=== PATIENT | male | born 1940 | race Caucasian/White ===

== ENCOUNTER → 2016-03-30 | Outpatient (CLI) | payer OTHER ==
[~2016-03-30] MED LIST: AMOX1TAB43 PO; ASPCH81X PO; ASPI81TA28 PO; DRN400 PO; FLM4 PO; FRS/40 PO; FURO40TA3 PO; GLC500 PO; HYDR-5688 PO; INSU1INJ23 SC; IPRA1AER2 INH; ISOS120T5 PO; LACTCHW3 PO; LEVO100T7 PO; LSX20 PO; MULT1CAP16 PO; NTRGSL/4 UT; POTA10TA32 PO; QVRINH80 INH; RANO500T PO; SIMV-151 PO; SULF-183 PO; TPRSR/100 PO; VNTHFA/IN INH; XNX25 PO
--- NOTE | 2016-03-30 11:29 | DIAGNOSTIC IMAGING REPORT ---
CHEST 2 VIEWS ROUTINE HISTORY: R06.09 Dyspnea on exertion Dyspnea on exertion but euvolemic on e COMPARISON: Chest 11/01/2015. FINDINGS: The heart remains mildly enlarged. There are poststernotomy changes. Mild diffuse interstitial thickening persists. No pleural effusions. No pneumothorax. No new focal lung consolidations. IMPRESSION: No change in the mild cardiomegaly and mild diffuse interstitial thickening. This may be chronic or due to developing congestive change. Electronically signed by: Gagan Guzmán M.D. 03/30/2016 11:27 AM Dictated Date/Time: 03/30/2016 11:25 AM
== END | disposition home or self-care (01) ==
LOC: C.RAD1850 10:40
PROVIDERS: ATTEND Internal Medicine Cardiovascular Disease
DX: R06.09 Other forms of dyspnea (principal)

== ENCOUNTER 2016-06-21 10:21 | Emergency (ER) | payer OTHER ==
[~2016-06-21] VITALS: Ht 172.7 cm; Wt 98.0 kg
[~2016-06-21 10:21] MED LIST changes: -AMOX1TAB43 PO; -ASPCH81X PO; -FRS/40 PO; -FURO40TA3 PO; -IPRA1AER2 INH; -LACTCHW3 PO; -QVRINH80 INH; -SULF-183 PO; -VNTHFA/IN INH
[2016-06-21 10:24] VITALS: O2SAT 94
[2016-06-21 10:27] VITALS: TEMP 36.8; Ht 172.7 cm; Wt 98.0 kg
[2016-06-21] MEDS ORDERED: IPRA1AER2 INH (10:43)
[2016-06-21 11:34] LABS: BASO % 0.3 %; BASO ABS # 0.02 K/uL (0-0.2); COMPLETE YES; EOS % 3.6 %; HEMATOCRIT 40.7 % (42-52); IG% 0.3 %; LYMPH % 36.4 %; LYMPH ABS # 2.72 K/uL (1.2-3.4); MEAN CELL VOLUME 89.1 fL (80-100); MEAN CORPUSCULAR HEMOGLOBIN 30.4 pg (25-34); MEAN CORPUSCULAR HGB CONC 34.2 g/dl (32-36); MEAN PLATELET VOLUME 9.6 fL (7.4-10.4); MONO % 8.3 %; NEUT % 51.1 %; PLATELET COUNT 161 K/uL (130-400); RED BLOOD COUNT 4.57 M/uL (4.7-6.1); WHITE BLOOD COUNT 7.48 K/uL (4.8-10.8)
--- NOTE | 2016-06-21 11:37 | DIAGNOSTIC IMAGING REPORT ---
CHEST ONE VIEW PORTABLE CLINICAL HISTORY: Chest pain, altered mental status. Weakness. COMPARISON STUDY: 03/30/2016 FINDINGS: There are postsurgical changes of a midline sternotomy. There is diffuse interstitial thickening similar to the prior study. The heart is mildly enlarged. There is no lobar consolidation. There are no pleural effusions.[ IMPRESSION: Cardiomegaly and stable interstitial thickening/edema. No evidence of lobar consolidation Electronically signed by: Sotero Salvador M.D. 06/21/2016 11:35 AM Dictated Date/Time: 06/21/2016 11:34 AM
[2016-06-21 11:52] LABS: BLOOD UREA NITROGEN 20 mg/dl (7-18); BUN/CREATININE RATIO 16.8 (10-20); CARBON DIOXIDE 30 mmol/L (21-32); CHLORIDE 107 mmol/L (98-107); GLUCOSE 138 mg/dl (70-99); POTASSIUM 4.2 mmol/L (3.5-5.1); SODIUM 142 mmol/L (136-145)
[2016-06-21 11:53] LABS: ALT/SGPT 31 U/L (12-78); AST/SGOT 15 U/L (15-37); CALCIUM 9.3 mg/dl (8.5-10.1); MAGNESIUM 1.8 mg/dl (1.8-2.4)
--- NOTE | 2016-06-21 11:53 | DIAGNOSTIC IMAGING REPORT ---
CT HEAD WITHOUT CONTRAST (CT) CLINICAL HISTORY: Altered mental status. Weakness. Right facial numbness. COMPARISON STUDY: No previous studies for comparison. TECHNIQUE: Axial CT of the brain is performed from the vertex to the skull base. IV contrast was not administered for this examination. CT DOSE: 1235.91 mGycm FINDINGS: No intra or extra-axial mass lesions are visualized. There is no CT evidence of acute cortical infarction. There is no evidence of midline shift. There is no acute hemorrhage. No calvarial fractures are visualized. There are patchy white matter hypodensities likely on a small vessel basis. There is no evidence of pathologic ventricular dilatation. There is no evidence of acute sinusitis IMPRESSION: No acute intracranial findings Electronically signed by: Sotero Salvador M.D. 06/21/2016 11:52 AM Dictated Date/Time: 06/21/2016 11:51 AM
[2016-06-21 12:01] LABS: ALKALINE PHOSPHATASE 42 U/L (45-117); CKMB/CK RATIO 1.2 (0-3.0)
[2016-06-21 12:05] VITALS: BP 112/41; PULSE 88; O2SAT 98
[2016-06-21 12:15] LABS: INR 1.1 (0.9-1.1); PROTHROMBIN TIME (PATIENT) 11.4 SECONDS (9.0-12.0)
--- NOTE | 2016-06-21 12:27 | EMERGENCY ROOM VISIT NOTE ---
History Report prepared by Eusebio: Diana Beal Under the Supervision of: Dr. Stanford Block D.O. First contact with patient: 10:46 Chief Complaint: CHEST PAIN Stated Complaint: CHEST PAIN Nursing Triage Summary: pt here with an episode of chest pain that lasted a few minutes this am while getting dressed. upon ems arrival pain was resolved. pt had some facial numbness last pm, took one nitro with relief. when pain started it was substernal, no radiation of pain, no sob. pt has had a prod cough History of Present Illness The patient is a 75 year old male who presents to the Emergency Room with complaints of an episode of chest pain last night. He had trouble sleeping and some SOB and swelling in the legs. He thought the symptoms might be due to CHF. He took a nitro which relieved the chest pain and SOB. He also reports numbness on the left side of his face. He went to the bathroom and felt dizzy and uncoordinated when he was walking. He reports weakness in his legs. He currently feels some chest pressure. He had a cardiac catheterization last year and a CABG. He has a history of CHF. Source of History: patient Onset: last night Position: chest Quality: pressure, other (pain) Timing: other (episodic) Modifying Factors (Relieving): other (nitro) Associated Symptoms: + SOB, + numbness (left side of face), + weakness (in legs) Note: Pt reports feeling dizzy and uncoordinated when walking. Review of Systems See HPI for pertinent positives & negatives. A total of 10 systems reviewed and were otherwise negative. Past Medical & Surgical Medical Problems: (1) Acute blood loss anemia (2) Atrial flutter (3) CAD (coronary artery disease) (4) CAD (coronary artery disease) of bypass graft (5) CAD (coronary artery disease), [place] coronary artery (6) Chest pain (7) CHF exacerbation (8) Diabetes (9) Encounter for Hemoccult screening (10) Encounter for Hemoccult screening (11) Heart disease (12) Hypertension (13) Unstable angina Family History Diabetes mellitus FATHER FH: cirrhosis MOTHER Hypertension FATHER Stroke FATHER Social History Smoking Status: Former Smoker Drug Use: none Marital Status: Housing Status: lives alone Occupation Status: retired Current/Historical Medications Scheduled Aspirin (Aspirin Ec), 81 MG PO QAM Dronedarone (Multaq), 400 MG PO BID Insulin Isophane (Human) (Humulin N Kwikpen), 30 UNITS SC QAM Insulin Isophane (Human) (Humulin N Kwikpen), 55 UNITS SC QPM Ipratropium-Albuterol (Combivent Respimat), 1 PUFFS INH QID Isosorbide Mononitrate Ext Rel (Imdur Ext Rel), 120 MG PO BID Levothyroxine Sodium (Levothyroxine Sodium), 100 MCG PO DAILY Metformin HCl (Metformin HCl), 1,000 MG PO BID Metoprolol Succinate (Metoprolol Succinate ER), 100 MG PO BID Multiple Vitamins W/ Minerals (Multi Complete), 1 TAB PO QPM Potassium Chloride Microencaps (Potassium Chloride Er), 10 MEQ PO BID Ranolazine (Ranexa), 500 MG PO Q12 Simvastatin (Simvastatin), 20 MG PO HS Tamsulosin HCl (Tamsulosin HCl), 0.4 MG PO HS Scheduled PRN Alprazolam (Alprazolam), 0.25 MG PO TID PRN for Anxiety Furosemide (Furosemide), 20 MG PO DAILY PRN for SOB,Weight Gain,Leg Swelling Hydrocodone/Acetaminophen 5MG/325MG (Ora 5MG/325MG), 1 TABLET PO Q12 PRN for Pain Nitroglycerin (Nitrostat), 0.4 MG UT UD PRN for Chest Pain Allergies Coded Allergies: No Known Allergies (Verified , 07/04/15) Physical Exam Vital Signs Date Time Temp Pulse Resp B/P Pulse Ox O2 Delivery O2 Flow Rate FiO2 06/21/16 12:05 88 16 112/41 98 Room Air 06/21/16 10:29 69 06/21/16 10:27 36.8 72 16 161/77 97 Room Air 06/21/16 10:24 94 Room Air Physical Exam CONSTITUTIONAL/VITAL SIGNS: Reviewed / noted above. GENERAL: Non-toxic in appearance. INTEGUMENTARY: Warm, dry, and [place]. HEAD: Normocephalic. EYES: without scleral icterus or trauma. ENT/OROPHARYNX: clear and moist. LYMPHADENOPATHY/NECK: Is supple without lymphadenopathy or meningismus. RESPIRATORY: Lungs clear and equal. CARDIOVASCULAR: Regular rate and rhythm. GI/ABDOMEN: Soft and nontender. No organomegaly or pulsatile mass. No rebound or guarding. Normal bowel sounds. EXTREMITIES: Warm and well perfused. BACK: No CVA tenderness. NEUROLOGICAL: Intact without focal deficits. PSYCHIATRIC: normal affect. MUSCULOSKELETAL: Normally developed with good muscle tone. Medical Decision & Procedures ER Provider Diagnostic Interpretation: X ray results and stated below per my interpretation and radiology interpretation. Radiology results as stated below per my review and radiologist interpretation: CHEST ONE VIEW PORTABLE CLINICAL HISTORY: Chest pain, altered mental status. Weakness. COMPARISON STUDY: 03/30/2016 FINDINGS: There are postsurgical changes of a midline sternotomy. There is diffuse interstitial thickening similar to the prior study. The heart is mildly enlarged. There is no lobar consolidation. There are no pleural effusions.[ IMPRESSION: Cardiomegaly and stable interstitial thickening/edema. No evidence of lobar consolidation Electronically signed by: Sotero Salvador M.D. 06/21/2016 11:35 AM Dictated Date/Time: 06/21/2016 11:[address] HEAD WITHOUT CONTRAST (CT) CLINICAL HISTORY: Altered mental status. Weakness. Right facial numbness. COMPARISON STUDY: No previous studies for comparison. TECHNIQUE: Axial CT of the brain is performed from the vertex to the skull base. IV contrast was not administered for this examination. CT DOSE: 1235.91 mGycm FINDINGS: No intra or extra-axial mass lesions are visualized. There is no CT evidence of acute cortical infarction. There is no evidence of midline shift. There is no acute hemorrhage. No calvarial fractures are visualized. There are patchy white matter hypodensities likely on a small vessel basis. There is no evidence of pathologic ventricular dilatation. There is no evidence of acute sinusitis IMPRESSION: No acute intracranial findings Electronically signed by: Sotero Salvador M.D. 06/21/2016 11:52 AM Dictated Date/Time: 06/21/2016 11:51 AM Laboratory Results 06/21/16 11:27 Red Blood Count 4.57, Mean Corpuscular Volume 89.1, Mean Corpuscular Hemoglobin 30.4, Mean Corpuscular Hemoglobin Concent 34.2, Mean Platelet Volume 9.6, Neutrophils (%) (Auto) 51.1, Lymphocytes (%) (Auto) 36.4, Monocytes (%) (Auto) 8.3, Eosinophils (%) (Auto) 3.6, Basophils (%) (Auto) 0.3, Neutrophils # (Auto) 3.83, Lymphocytes # (Auto) 2.72, Monocytes # (Auto) 0.62, Eosinophils # (Auto) 0.27, Basophils # (Auto) 0.02 06/21/16 11:27 Test 06/21/16 11:27 White Blood Count 7.48 K/uL (4.8-10.8) Red Blood Count 4.57 M/uL (4.7-6.1) Hemoglobin 13.9 g/dL (14.0-18.0) Hematocrit 40.7 % (42-52) Mean Corpuscular Volume 89.1 fL (80-100) Mean Corpuscular Hemoglobin 30.4 pg (25-34) Mean Corpuscular Hemoglobin Concent 34.2 g/dl (32-36) Platelet Count 161 K/uL (130-400) Mean Platelet Volume 9.6 fL (7.4-10.4) Neutrophils (%) (Auto) 51.1 % Lymphocytes (%) (Auto) 36.4 % Monocytes (%) (Auto) 8.3 % Eosinophils (%) (Auto) 3.6 % Basophils (%) (Auto) 0.3 % Neutrophils # (Auto) 3.83 K/uL (1.4-6.5) Lymphocytes # (Auto) 2.72 K/uL (1.2-3.4) Monocytes # (Auto) 0.62 K/uL (0.11-0.59) Eosinophils # (Auto) 0.27 K/uL (0-0.5) Basophils # (Auto) 0.02 K/uL (0-0.2) RDW Standard Deviation 47.2 fL (36.4-46.3) RDW Coefficient of Variation 14.6 % (11.5-14.5) Immature Granulocyte % (Auto) 0.3 % Immature Granulocyte # (Auto) 0.02 K/uL (0.00-0.02) Prothrombin Time 11.4 SECONDS (9.0-12.0) Prothromb Time International Ratio 1.1 (0.9-1.1) Activated Partial Thromboplast Time 26.1 SECONDS (21.0-31.0) Partial Thromboplastin Ratio 1.0 Anion Gap 5.0 mmol/L (3-11) Est Creatinine Clear Calc Drug Dose 62.2 ml/min Estimated GFR () 69.1 Estimated GFR (Non- 59.6 BUN/Creatinine Ratio 16.8 (10-20) Calcium Level 9.3 mg/dl (8.5-10.1) Magnesium Level 1.8 mg/dl (1.8-2.4) Total Bilirubin 0.4 mg/dl (0.2-1) Direct Bilirubin 0.2 mg/dl (0-0.2) Aspartate Amino Transf (AST/SGOT) 15 U/L (15-37) Alanine Aminotransferase (ALT/SGPT) 31 U/L (12-78) Alkaline Phosphatase 42 U/L (45-117) Total Creatine Kinase 109 U/L (39-308) Creatine Kinase MB 1.3 ng/ml (0.5-3.6) Creatine Kinase MB Ratio 1.2 (0-3.0) Troponin I < 0.015 ng/ml (0-0.045) Total Protein 7.3 gm/dl (6.4-8.2) Albumin 3.5 gm/dl (3.4-5.0) Lipase 167 U/L (73-393) Thyroid Stimulating Hormone (TSH) 1.030 uIu/ml (0.300-4.500) Laboratory results as stated above per my review. ECG Indication: chest pain Rate (beats per minute): 70 Rhythm: normal sinus Findings: T-wave inversion (chronic, anterior and lateral), no ectopy, other ( no acute injury) Comparison ECG Date: Change: no significant change ED Course 1105: Previous medical records were reviewed. The patient was evaluated in room A2. A complete history and physical examination was performed. 1229: On reevaluation, the patient is resting comfortably. I discussed the results and findings with the patient. He verbalized agreement of the treatment plan. He was discharged home. Medical Decision Differential includes acute coronary syndrome, myocardial infarction, CVA, TIA, anemia, infection, pneumonia, UTI, pyelonephritis, poor nutrition, dehydration, electrolyte disturbance,hypoglycemia. This is a 75-year-old male who presents to the ED with a chief complaint of multiple complaints. The patient states that he had a rough night last night. He states that he had a hard time sleeping. He states at one point the right side of his face in the cheek area felt numb. He also reports some swelling in his legs and was concerned about having a case of congestive heart failure. He states that he got a little dizzy. He had some shortness of breath. He also reports some chest pain once in a while. His vital signs are normal. His physical exam was also normal. Of note, he did not have any pedal edema. His EKG showed a normal sinus rhythm with some chronic changes. Chest x-ray was negative for acute disease as was a CT scan of his brain. CBC is unremarkable. The complete metabolic panel was normal. TSH is normal as is a troponin. The patient was told the results of the test. He is felt to be stable for discharge. Impression Primary Impression: Facial paresthesia Additional Impressions: Dizziness Chest pain, precordial Scribe Attestation The scribe's documentation has been prepared under my direction and personally reviewed by me in its entirety. I confirm that the note above accurately reflects all work, treatment, procedures, and medical decision making performed by me. Departure Information Dispostion Home / Self-Care Referrals RV. Ewing MD (PCP) Patient Instructions My [facility] Additional Instructions Follow-up with your doctor for further care and evaluation in 1-2 days. Return to the emergency department for worsening or new symptoms or any concerns. You have been examined and treated today on an emergency basis only. This is not a substitute for, or an effort to provide, complete comprehensive medical care. It is impossible to recognize and treat all injuries or illnesses in a single emergency department visit. It is therefore important that you follow up closely with your doctor. Call as soon as possible for an appointment. Problem Qualifiers
[2016-10-20] MEDS ORDERED: SULF-183 PO (15:38)
[2016-10-20] MEDS ORDERED: INSU1INJ23 SC ×2 (15:38)
[2016-10-20] MEDS ORDERED: LACTCHW3 PO (15:38)
[2016-10-20] MEDS ORDERED: AMOX1TAB43 PO (15:38)
[2016-11-21] MEDS ORDERED: VNTHFA/IN INH (08:25)
[2016-11-21] MEDS ORDERED: ASPCH81X PO (08:25)
== END 2016-06-21 12:35 | disposition home or self-care (01) ==
LOC: EDBD 10:21 → C.EDA 10:22
DX: R07.9 Chest pain, unspecified (principal); R42 Dizziness and giddiness; R20.2 Paresthesia of skin; Z95.1 Presence of aortocoronary bypass graft; I50.9 Heart failure, unspecified; I48.92 Unspecified atrial flutter; I25.810 Atherosclerosis of coronary artery bypass graft(s) without angina pectoris; E11.9 Type 2 diabetes mellitus without complications; I10 Essential (primary) hypertension; Z83.3 Family history of diabetes mellitus; Z82.49 Family history of ischemic heart disease and other diseases of the circulatory system; Z82.3 Family history of stroke; Z87.891 Personal history of nicotine dependence; Z79.4 Long term (current) use of insulin; Z79.899 Other long term (current) drug therapy

== ENCOUNTER → 2016-09-05 | Outpatient (CLI) | payer OTHER ==
[~2016-09-05] MED LIST changes: +AMOX1TAB43 PO; +ASPCH81X PO; +FURO40TA3 PO; +IPRA1AER2 INH; +LACTCHW3 PO; +QVRINH80 INH; +SULF-183 PO; +VNTHFA/IN INH
[2016-09-05 13:25] LABS: ESTIMATED AVERAGE GLUCOSE 140 mg/dl; HA1C FLAG Normal (Normal)
== END | disposition home or self-care (01) ==
LOC: C.LAB1850 10:00
PROVIDERS: ATTEND Nurse Practitioner Family
DX: E11.29 Type 2 diabetes mellitus with other diabetic kidney complication (principal)

== ENCOUNTER → 2016-09-12 | Outpatient (CLI) | payer OTHER ==
--- NOTE | 2016-09-13 05:19 | PAP/PSG TECHNICIAN REPORT ---
[facility] [employer] Prom[employer] Specialist Polysomnogram Report Study name: None Report date: 09/13/2016 Study date: 09/12/2016 Referring Physician: Paula Damian PA-C, PA-C Name: BRIDGET ALFONSO Interpreting Physician: Ok Shankar M.D. Date of : 1940 [employer] Prom[employer] Specialist: ALESSANDRO Lofton. Sex: Male Age: 76 StudyType: PSG PAP Weight: 210 lbs Height: 76 years, Height 5' 7" Neck Circum:18.5inches BMI: 32.89 Medications: Alprazolam 0.25mg, Isosorbide Mononitrate Er 120mg, Metoprolol 100mg, Nitrostat 0.4mg, Furosemide 40mg, ASA 81mg, Multaq 400mg, Tamsulosin 0.4mg, Ranexa 500mg, Simvastatin 20mg, Combivent Respimat 20-100 mcg/act, Potassium Chloride 10meq, Levothyroxine 100mvg, Hydrocodone-Acetaminophen 5-325mg, Humulin [id number]/ml, Metformin HCl 500mg, Vit D 5000unit Patient History Study started on room air with Bi-pap 10/20. 76 yr old male here tonight for a titration study for pressure settings. He has been on bi-pap off and on for several years. He hasn't used it for the past few years. He does not know what his settings are. He had been using nasal pillows with a chin strap but is willing to try a full face mask tonight. His ESS=12/21. His neck circ=18.5inches. Parameters Monitored NPSG: E1-M2, E2-M1, Fp1-M2, Fp2-M1, F3-M2, F4-M2, F4-M1, C3-M2, C4-M2, C4-M1, O1-M2, O2-M2, O2-M1, T3-M2, T4-M1, P3-M2, P4-M1, CHIN1, CHIN2, HR, EKG, Legs, PFLOW, SNOR, FLOW, CFLOW, Tidal Volume, THOR, ABDO, SpO2, PLTH, CPRESS, ETCO2 Wave, ETCO2, pH Sleep Architecture Sleep Stages Time at Lights Off 9:18:09 PM STAGES Time (min.) TST (%) Time at Lights On 5:10:09 AM Wake 408.5 -- Total Recording Time (TRT) 471.50 min. N1 27.0 43 Total Sleep Period (TSP) 408.5 min. N2 36.0 57 Total Sleep Time (TST) 63.0min. N3 0.0 0 Awake Time 408.5 min. REM 0.0 0 Wake after Sleep Onset 372.0 min. Sleep Efficiency (SE) 13 % Sleep Onset Latency (ONEIDA) 37.0 min. Number of Stage 1 Shifts None Awakenings 55 Stage Changes 137 Number of REM periods N/A REM 0.0 0 REM Latency NONE min. NREM 63.0 100 Body Position Analysis Supine Right Left Side Prone Vertical Total Sleep Time (min.) 460.3 0.0 0.0 0.00 0.0 0.0 Total Sleep Time (%) 100% 0% 0% 0 0% N/A% Total Sleep Time REM (min.) 0.0 0.0 0.0 None 0.0 0.0 Total Sleep Time NREM (min.) 63.0 0.0 0.0 None 0.0 0.0 Intermittent Wake (min.) 397.3 7.2 4.0 None 0.0 0.0 Total Sleep Period (%) 97% None None None None None Arousals Myoclonus (PLM) * Events Count Index Events Count Index Spontaneous 15 14 Events Awake (PLMW) 221 32.5 Respiratory 34 50.5 Events Asleep w/ Arousal (PLMA) 1 1.0 PLM 1 1 Events Asleep w/o Arousal (PLMS) 13 12.4 Snoring 2 2 Total Asleep 14 13.3 Total 52 50 Total 235 30 Respiratory Analysis * CA OA MA CH H RERA Total Count 9 6 7 0 45 0 67 Index 8.6 5.7 6.7 0 42.9 0 63.8 Mean Duration 18.1 18.6 26.1 0.00 23.0 0.0 22.3 Longest Duration 24.4 22.8 32.1 0.00 32.1 0.0 46.0 Respiratory Event Summary Total Supine ~Supine Right Left Prone REM NREM Apneas Count 22 22 N/A N/A N/A N/A N/A 22 Index 21.0 21 N/A N/A N/A N/A N/A 21 Hypopneas (4% Desat) Count 45 45 N/A N/A N/A N/A N/A 45 Index 42.9 42.9 N/A N/A N/A N/A N/A 42.9 Apneas & All Hypopneas Count 67 67 N/A N/A N/A N/A N/A 67 Index 63.8 64 N/A N/A N/A N/A N/A 63.8 Respiratory Events (Devulcanizer Operator+All Hyp+RERA) Count 67 67 N/A N/A N/A N/A N/A 67 Index 63.8 64 N/A N/A N/A N/A N/A 63.8 Respiratory Related Arousal Count 34 67 N/A N/A N/A N/A N/A 53 Index 50.5 50 N/A N/A N/A N/A N/A 50 Snoring Analysis Supine Right Left Prone REM NREM Total Snore duration 0.7 min Snores count 41 N/A N/A N/A N/A 41 41 Snore mean duration 1.1 Sec Snores index 39 N/A N/A N/A N/A 39.0 39.0 TST with snoring (%) 1.2% Desaturation Event Summary: Minimum %SpO2 Event Count Mean/Min/Max Duration(sec.) Desaturation Index % Time In Bed > 90 114 31.1 / 14.0 / 59.8 25.6 58.6 86 - 90 83 27.5 / 0.0 / 55.0 30.8 35.5 81 - 85 3 18.6 / 12.8 / 25.5 6.9 5.7 76 - 80 0 N/A 0.0 0.2 71 - 75 0 N/A 0.0 0.0 66 - 70 0 N/A 0.0 0.0 61 - 65 0 N/A 0.0 0.0 56 - 60 0 N/A 0.0 0.0 51 - 55 0 N/A 0.0 0.0 < 50 0 N/A 0.0 0.0 Total REM NREM Awake <50% 0.0 min. 0.0 min. 0.0 min. 0.0 min. 51 - 60% 0.0 min. 0.0 min. 0.0 min. 0.0 min. 61 - 70% 0.0 min. 0.0 min. 0.0 min. 0.0 min. 71 - 80% 0.9 min. 0.0 min. 0.3 min. 0.5 min. 81 - 90% 187.8 min. 0.0 min. 35.8 min. 152.1 min. 91 - 100% 267.0 min. 0.0 min. 26.9 min. 240.1 min. Average 91 0 89 91 Minimum SpO2 78 N/A 80 78 Desaturation Event Index 21.0 0.0 54.3 15.9 # Desat. Events below 89% 131 N/A 45 86 Time(%) with Saturation below 89% 19.8 0.0 5.3 14.5 Time(min.) with Saturation below 89% 90.3 0.0 24.3 66.0 Time (mins) REM (mins) NREM (mins) % of TST SpO2 Below 90% 55 N/A N55 47.4 SpO2 Below 88% 19 0 0 30 Heart Rate Analysis Min (bpm) Max (bpm) Average (bpm) Awake 46 180 55 NREM 48 64 54 REM N/A N/A N/A Overall 48 64 54 Supplemental O2 Values Minimum O2 level: None Value Start Time End Time [employer] Specialist Comments Mr. Alfonso slept in the supine position. He rolled to the right and left briefly. No cardiac arrhythmia or PLM's noted. No bruxism noted. PAP initiated at an IPAP of +8 CMH2O and an EPAP of +4 CMH2O up-titrated to a level of: IPAP +16 CMH2O, EPAP +11 CMH20. An optimal pressure was not achieved due to lack of sleep and intolerance to masks. Three different masks were used during titration, A medium Simplus full face mask by Katerin, A medium Nahomi View full face mask by Respironics and a medium Airfit F10 full face mask by Resmed. He liked the Simplus the best. He did not use the restroom during the night. He stated that he slept worse than usual. The final report will be interpreted and signed by a sleep physician. The completed physician report will then be placed in the patient medical record. Therapy Event: Therapy (cm H20) 8/4 9/5 10/6 11/7 12/8 13/9 14/10 15/11 16/11 Total Time at Pressure (min.) 47.5 10.2 57.8 17.2 47.9 10.3 208.9 30.4 41.4 TST at Pressure (min.) 5.0 5.1 6.3 5.2 13.8 6.8 6.7 7.1 6.9 # Periods 1 1 1 1 1 1 1 1 1 Sleep Onset (min.) 37.0 1.5 0.0 0.0 0.0 0.4 0.0 2.8 0.0 REM Onset (min.) N/A N/A N/A N/A N/A N/A N/A N/A N/A Sleep Efficiency % 10 50 10 30 28 66 3 23 16 Wakefulness (%) 89.5 49.4 89.1 69.7 71.1 33.6 96.8 76.8 83.2 Wakefulness (min.) 42.5 5.0 51.5 12.0 34.1 3.4 202.2 23.3 34.5 NREM 1 (%) 9.5 35.9 5.7 14.8 8.4 29.3 1.2 6.6 3.6 NREM 1 (min.) 4.5 3.6 3.3 2.5 4.0 3.0 2.5 2.0 1.5 NREM 2 (%) 1.1 14.7 5.2 15.6 20.5 37.2 2.0 16.6 13.1 NREM 2 (min.) 0.5 1.5 3.0 2.7 9.8 3.8 4.2 5.1 5.4 NREM 3 (%) 0.0 0.0 0.0 0.0 0.0 0.0 0.0 0.0 0.0 NREM 3 (min.) 0.0 0.0 0.0 0.0 0.0 0.0 0.0 0.0 0.0 REM (%) 0.0 0.0 0.0 0.0 0.0 0.0 0.0 0.0 0.0 REM (min.) 0.0 0.0 0.0 0.0 0.0 0.0 0.0 0.0 0.0 # Arousals 4 6 7 6 8 3 6 6 6 Arousal Index 48.0 69.9 66.6 68.9 34.7 26.4 53.8 51.1 51.8 # Snore 1 2 2 2 7 1 3 13 10 Snore Index 12.0 23.3 19.0 23.0 30.4 8.8 26.9 110.6 86.4 AHI 84.0 69.9 95.1 80.4 60.8 70.5 53.8 59.6 17.3 AHI Supine 84.0 69.9 95.1 80.4 60.8 70.5 53.8 59.6 17.3 AHI Non-Supine N/A N/A N/A N/A N/A N/A N/A N/A N/A NREM AHI 84.0 69.9 95.1 80.4 60.8 70.5 53.8 59.6 17.3 REM AHI N/A N/A N/A N/A N/A N/A N/A N/A N/A RDI 84.0 69.9 95.1 80.4 60.8 70.5 53.8 59.6 17.3 # Obstructive 2 0 3 0 0 0 1 0 0 # Central Ap 0 2 3 2 1 0 1 0 0 # Mixed 0 0 0 1 3 2 0 0 1 # Hypopneas 5 4 4 4 10 6 4 7 1 RERAS 0 0 0 0 0 0 0 0 0 Total Respiratory Events 7 6 10 7 14 8 6 7 2 Time Below SpO2 89.00% (min.) 3.8 2.5 4.1 3.4 7.1 1.5 1.8 0.0 0.2 Mean NREM SpO2 (%) 86 88 87 87 89 91 90 92 92 Mean REM SpO2 (%) N/A N/A N/A N/A N/A N/A N/A N/A N/A Mean Sleep SpO2 (%) 86 88 87 87 89 91 90 92 92 Min NREM SpO2 (%) 80 80 81 81 80 82 82 89 88 Min REM SpO2 (%) N/A N/A N/A N/A N/A N/A N/A N/A N/A Position Supine (min.) 5.0 5.1 6.3 5.2 13.8 6.8 6.7 7.1 6.9 Position Non-supine (min.) 0.0 0.0 0.0 0.0 0.0 0.0 0.0 0.0 0.0 LM Index Sleep 0.0 0.0 9.5 46.0 8.7 17.6 9.0 25.5 8.6 LM Index NREM 0.0 0.0 9.5 46.0 8.7 17.6 9.0 25.5 8.6 LM Index REM N/A N/A N/A N/A N/A N/A N/A N/A N/A Mean Heart Rate (bpm) 54 55 55 53 55 55 53 54 53 Min Heart Rate (bpm) 51 51 51 49 49 51 48 51 49
--- NOTE | 2016-09-21 10:51 | Sleep Study ---
Sleep Study Report Date of Service: September 12, 2016 Sleep Study Report Clinical data: The patient is a 76-year-old male who has been on BiPAP for several years. He is not sure what the settings on his BiPAP machine currently are. In the past, he has been using nasal pillows and a chinstrap but he was willing to use a fullface mask on the night of this study. His Ellery sleepiness Score is elevated at 12/24. Sleep architecture: Total sleep period was 408.5 minutes. Total sleep time was only 63 minutes, all non REM sleep. Sleep onset latency was 37 minutes. REM was not achieved. Sleep efficiency was severely reduced at 13 percent. Wake after sleep onset was severely elevated at 372 minutes. Sleep consisted of stage N1 43 percent and stage N2 57 percent. Arousal data: 52 arousals were recorded for an index of 50 per hour. PLM data: 14 limb movements during sleep were noted for an index of 13.3 per hour with an arousal index of 1 per hour Respiratory data: The AHI was 63.8. There were 9 central, 6 obstructive, and 7 mixed apneic episodes. The longest duration of apnea was 32 seconds. There were 45 hypopneas episodes. Longest hypopnea episode was 32 seconds. Oximetry data: Nocturnal hypoxemia was seen. Oxygen gonzalo was 80 percent during non-REM sleep. Mean saturation was 91 percent. Time below 88 percent was 19 minutes. EKG: Heart rates ranged from 48 to 64 beats per minute. No arrhythmias were noted. Blue Leather Setter's comments and treatment summary: Patient slept supine for most of the night. He tried 3 different fullface masks including a medium Simplus, a medium Nahomi view, and a medium air fit 10. He did not tolerate any of these face masks very well. He was started on BiPAP 8/4 and was titrated up to BiPAP 16/11. At his final pressure setting, he only slept for 6.9 minutes with an AHI of 17.3. He stated that he slept very poorly during the night. Impression: Obstructive sleep apnea with an attempt at BiPAP titration which was unsuccessful due to lack of adequate sleep and intolerance of a variety of different face masks. No definite recommendations on a BiPAP setting could be made at this time. Recommendation: If another attempt at BiPAP titration is to be considered, the patient should be given either Ambien 10 milligrams or Lunesta 3 milligrams to use on the night of the titration study. A trial of auto BiPAP could be considered. Clinical correlation is needed. Copies To 1: RV. Ewing MD; Paula Damian, ZAHRA
== END | disposition home or self-care (01) ==
LOC: C.NEUR 20:00
PROVIDERS: ATTEND Physician Assistant
DX: G47.30 Sleep apnea, unspecified (principal); R94.2 Abnormal results of pulmonary function studies; F41.9 Anxiety disorder, unspecified; E11.9 Type 2 diabetes mellitus without complications; I10 Essential (primary) hypertension; I47.1 Supraventricular tachycardia; Z95.1 Presence of aortocoronary bypass graft; Z87.891 Personal history of nicotine dependence

== ENCOUNTER → 2016-09-28 | Outpatient (CLI) | payer OTHER ==
--- NOTE | 2016-09-28 09:03 | DIAGNOSTIC IMAGING REPORT ---
(CHEST) THORAX WITHOUT CT DOSE: 853.63 mGycm HISTORY: Dyspnea Z87.891 Former [id number] Dyspnea on [id number] Abnormal PF TECHNIQUE: Multiaxial CT images of the chest were performed without contrast. COMPARISON: None. FINDINGS: Moderate emphysematous change. Mild scattered interstitial fibrotic change. No consolidative or focal infiltrative changes. Prior median sternotomy. Several small indeterminate mediastinal nodes. These may be reactive. Nodes measure to 1.3 cm. Mild stable cardiomegaly. Calcification of the coronary arterial vasculature. Limited evaluation the upper abdomen is unremarkable. IMPRESSION: 1. Moderate emphysematous change. 2. Moderate chronic interstitial change. 3. Several nonspecific mediastinal nodes with a follow-up CT study recommended in 6 months. The above report was generated using voice recognition software. It may contain grammatical, syntax or spelling errors. Electronically signed by: Ac Salinas M.D. 09/28/2016 9:01 AM Dictated Date/Time: 09/28/2016 8:58 AM
== END | disposition home or self-care (01) ==
LOC: C.CTS 08:31
PROVIDERS: ATTEND Physician Assistant
DX: R06.09 Other forms of dyspnea (principal); R94.2 Abnormal results of pulmonary function studies; J43.9 Emphysema, unspecified; Z87.891 Personal history of nicotine dependence

== ENCOUNTER 2016-10-14 08:46 | Inpatient (IN) | payer OTHER ==
[~2016-10-14] VITALS: Ht 172.7 cm; Wt 90.9 kg
[~2016-10-14 08:46] MED LIST changes: -AMOX1TAB43 PO; -ASPCH81X PO; -FURO40TA3 PO; -LACTCHW3 PO; -QVRINH80 INH; -SULF-183 PO; -VNTHFA/IN INH
[2016-10-14] MEDS ORDERED: FURO40TA3 PO (09:32)
[2016-10-14] MEDS ORDERED: QVRINH80 INH (09:35)
[2016-10-14] MEDS ORDERED: SODIUM CHLORIDE 0.9% 250ML 250 ML IV STA (09:41)
[2016-10-14] MEDS ORDERED: SODIUM CHLORIDE 0.9% 1000ML 1,000 ML IV STA (09:41)
[2016-10-14] MEDS ORDERED: ONDANSETRON INJ 2 MG/ML 2 ML VIAL IV STA (09:41)
--- NOTE | 2016-10-14 10:00 | EMERGENCY ROOM VISIT NOTE ---
History Report prepared by Eusebio: Keysha Rg Under the Supervision of: Dr. Deedee Gonzalez M.D. First contact with patient: 09:03 Chief Complaint: DIARRHEA Stated Complaint: DIARRHEA,VOMITING,FEVER,SHAKINESS Nursing Triage Summary: Pt c/o n/v/d since last night. States for the last week he has felt drowsy and weak. DM History of Present Illness The patient is a 76 year old male who presents to the Emergency Room with complaints of persistent fatigue that began one week ago. The patient states that at the beginning of the weak he developed weakness and fatigue. He states that last evening he began developing nausea, vomiting, and diarrhea. The patient states that he experienced diarrhea and vomiting all night long, noting that his last bowel movement was around 0730. He states that he has been experiencing dry heaves. The patient additionally associates upper abdominal pain. He denies any hematemesis, hematochezia, or melena. The patient additionally reports a fever that began last evening. He denies any history of an appendectomy. The patient reports a history of diabetes, coronary artery disease, and a cardiac stent. He states that he is a previous smoker. Source of History: patient Onset: one week ago Position: other (global) Quality: other (fatigue) Timing: other (persistent) Associated Symptoms: + fevers, + nausea, + vomiting, + abdominal pain, + diarrhea, No melena, No hematochezia Review of Systems See HPI for pertinent positives & negatives. A total of 10 systems reviewed and were otherwise negative. Past Medical & Surgical Medical Problems: (1) Acute blood loss anemia (2) Atrial flutter (3) CAD (coronary artery disease) (4) CAD (coronary artery disease) of bypass graft (5) CAD (coronary artery disease), coquille coronary artery (6) Chest pain (7) CHF exacerbation (8) Colitis (9) Diabetes (10) Encounter for Hemoccult screening (11) Encounter for Hemoccult screening (12) Heart disease (13) Hypertension (14) Unstable angina Family History Diabetes mellitus FATHER FH: cirrhosis MOTHER Hypertension FATHER Stroke FATHER Social History Smoking Status: Former Smoker Drug Use: none Marital Status: Housing Status: lives alone Occupation Status: retired Current/Historical Medications Scheduled Aspirin (Aspirin Ec), 81 MG PO QAM Beclomethasone Dip (Qvar), 40 MCG INH DAILY Dronedarone (Multaq), 400 MG PO BID Furosemide (Lasix), 40 MG PO DAILY Insulin Isophane (Human) (Humulin N Kwikpen), 30 UNITS SC QAM Insulin Isophane (Human) (Humulin N Kwikpen), 55 UNITS SC QPM Ipratropium-Albuterol (Combivent Respimat), 1 PUFFS INH QID Isosorbide Mononitrate Ext Rel (Imdur Ext Rel), 120 MG PO BID Levothyroxine Sodium (Levothyroxine Sodium), 100 MCG PO DAILY Metformin HCl (Metformin HCl), 1,000 MG PO BID Metoprolol Succinate (Metoprolol Succinate ER), 100 MG PO BID Multiple Vitamins W/ Minerals (Multi Complete), 1 TAB PO QPM Potassium Chloride Microencaps (Potassium Chloride Er), 10 MEQ PO BID Ranolazine (Ranexa), 500 MG PO Q12 Simvastatin (Simvastatin), 20 MG PO HS Tamsulosin HCl (Tamsulosin HCl), 0.4 MG PO HS Scheduled PRN Alprazolam (Alprazolam), 0.25 MG PO TID PRN for Anxiety Hydrocodone/Acetaminophen 5MG/325MG ([place] 5MG/325MG), 1 TABLET PO Q12 PRN for Pain Nitroglycerin (Nitrostat), 0.4 MG UT UD PRN for Chest Pain Allergies Coded Allergies: No Known Allergies (Verified , 10/14/16) Physical Exam Vital Signs Date Time Temp Pulse Resp B/P (MAP) Pulse Ox O2 Delivery O2 Flow Rate FiO2 10/14/16 13:29 66 19 125/61 92 Room Air 10/14/16 13:13 71 10/14/16 11:47 65 18 118/63 95 Room Air 10/14/16 10:27 63 18 153/72 97 Room Air 10/14/16 10:24 57 10/14/16 08:52 36.7 78 18 150/85 94 Room Air Physical Exam Vital signs reviewed. General: Obese. Well-appearing male, in no significant distress. HEENT: No scleral icterus, PERRLA, neck supple. Atraumatic. Cardiovascular: Regular rate and rhythm, no extra sounds. Pulmonary: Clear to auscultation bilaterally, normal work of breathing. Abdomen: Soft, mild epigastric abdominal tenderness, nondistended, positive bowel sounds. Musculoskeletal: Atraumatic, no peripheral edema. Neurologic: Patient awake alert and oriented x 3, full strength in all 4 extremities. Cranial nerves 2 through 12 grossly intact. Skin: Warm, dry, no rash Medical Decision & Procedures ER Provider Diagnostic Interpretation: CT results as stated below per my review and radiologist interpretation: CT OF THE ABDOMEN AND PELVIS WITH CONTRAST CLINICAL HISTORY: Vomiting, elevated lactate. COMPARISON STUDY: Renal ultrasound July 22, 2015. TECHNIQUE: Following IV administration of 93 mL of Optiray-320, axial images of the abdomen and pelvis were obtained from the lung bases to the proximal femurs. Images were reviewed in the axial, sagittal, and coronal planes. IV contrast was administered without complication. A dose lowering technique was utilized adhering to the principles of ALARA. CT DOSE: 763.62 mGy.cm FINDINGS: Several subcentimeter hepatic lesions are too small to characterize but likely benign. There is fatty infiltration of the liver. The spleen, adrenal glands and pancreas are unremarkable. There is no hydronephrosis. There is no evidence for a bowel obstruction. The appendix is normal. Apparent long segment colonic wall thickening is likely due to underdistention. There is no pneumatosis, free air or portal venous gas. There is mild dilatation of the infrarenal abdominal aorta which measures 2.9 cm. There is moderate atherosclerotic plaque. Proximal major mesenteric vessels are patent. No suspicious skeletal lesions are identified. There is moderate distention of the bladder and mild enlargement of the prostate. A fat-containing left inguinal hernia is present. There are postoperative findings within the spine. IMPRESSION: 1. Apparent mild long segment colonic wall thickening. This is likely due to underdistention although a nonspecific colitis could appear similar. 2. Fatty liver. 3. Moderate distention of the bladder. Moderate enlargement of the prostate. No hydronephrosis. 4. Ectatic infrarenal abdominal aorta, measuring 2.8 cm. Extensive atherosclerotic plaque of the abdominal aorta and major mesenteric vessels. Proximal major mesenteric vessels patent. Electronically signed by: Lane Treviño M.D. 10/14/2016 12:28 PM Dictated Date/Time: 10/14/2016 12:18 PM Laboratory Results Test 10/14/16 09:20 10/14/16 10:00 10/14/16 10:21 10/14/16 12:58 Urine Color DK YELLOW Urine Appearance CLEAR (CLEAR) Urine pH 7.0 (4.5-7.5) Urine Specific [place] 1.019 (1.000-1.030) Urine Protein TRACE (NEG) Urine Glucose (UA) NEG (NEG) Urine Ketones NEG (NEG) Urine Occult Blood NEG (NEG) Urine Nitrite NEG (NEG) Urine Bilirubin NEG (NEG) Urine Urobilinogen NEG (NEG) Urine Leukocyte Esterase NEG (NEG) Urine WBC (Auto) 1-5 /hpf (0-5) Urine RBC (Auto) 0-4 /hpf (0-4) Urine Hyaline Casts (Auto) 1-5 /lpf (0-5) Urine Epithelial Cells (Auto) 5-10 /lpf (0-5) Urine Bacteria (Auto) NEG (NEG) Prothrombin Time 11.7 SECONDS (9.0-12.0) Prothromb Time International Ratio 1.1 (0.9-1.1) Activated Partial Thromboplast Time 26.2 SECONDS (21.0-31.0) Partial Thromboplastin Ratio 1.0 Direct Bilirubin 0.2 mg/dl (0-0.2) Lipase 87 U/L (73-393) Bedside Troponin I < 0.030 ng/ml (0-0.045) Bedside Lactic Acid Venous 4.19 mmol/L (0.90-1.70) Laboratory results per my review. Medications Administered Medications (Trade) Dose Ordered Sig/Eladio Route Start Time Stop Time Status Last Admin Dose Admin Sodium Chloride 250 ml @ 999 mls/hr Q16M STAT IV 10/14/16 09:41 10/14/16 09:56 DC 10/14/16 10:27 999 MLS/HR Sodium Chloride 1,000 ml @ 125 mls/hr Q8H STAT IV 10/14/16 09:41 10/14/16 17:13 DC 10/14/16 10:27 125 MLS/HR Ondansetron HCl (Zofran Inj) 4 mg NOW STAT IV 10/14/16 09:41 10/14/16 09:51 DC 10/14/16 10:27 4 MG Promethazine HCl 12.5 mg/Sodium Chloride 50.5 ml @ 204 mls/hr NOW STAT IV 10/14/16 13:20 10/14/16 13:34 DC 10/14/16 13:28 204 MLS/HR Sodium Chloride 1,000 ml @ 40 mls/hr Q24H IV 10/14/16 15:23 11/13/16 15:22 10/14/16 17:09 40 MLS/HR ECG Indication: weakness Rate (beats per minute): 59 Rhythm: sinus bradycardia Findings: T-wave inversion (Anterolateral), no acute ischemic change, no ectopy ED Course 0941: Ordered Zofran Inj 4 mg IV, Sodium Chloride 1000 ml @ 125 mls/hr IV, Sodium Chloride 250 ml @ 999 mls/hr IV. 0953: Past medical records reviewed. The patient was evaluated in room B6. A complete history and physical examination was performed. 1320: I reevaluated the patient and he is resting comfortably. I discussed the exam findings with him and I discussed the treatment plan. He verbalized complete understanding and agreement. The patient is ready to go home. Ordered Promethazine HCl 12.5 mg/Sodium Chloride 50.5 ml @ 204 mls/hr IV. 1325: Ordered Phenergan Inj 25 mg .route. 1434: I discussed the patients case with KIMBERLY Tuttle. He is going to evaluate the patient for further treatment. Medical Decision Differential diagnosis: Etiologies such as gastroenteritis, food borne illness, infections, appendicitis , diverticulitis, inflammatory bowel disease, obstruction, GI bleed, biliary pathology, as well as others were entertained. This patient was evaluated and appeared to be in no significant distress. IV access was obtained and laboratory work was drawn. The patient was placed on the vegetable scullion and found to be in a normal sinus rhythm. He was hydrated with normal saline solution. Laboratory work reveals a normal white blood cell count, fairly normal renal profile with a slightly depleted magnesium. Patient' s lactic acid is 4.4. A repeat is 4.19. CT scan abdomen and pelvis was performed and reveals a nonspecific colitis. There is also atherosclerotic plaque along the infrarenal aorta. Given the patient's symptoms and the elevated lactate, he will be evaluated by the hospitalist service for further management. Medication Reconcilliation Current Medication List: was personally reviewed by me Blood Pressure Screening Patient's blood pressure: Normal blood pressure Consults Time Called: 1303 Consulting Physician: KIMBERLY Tuttle Returned Call: [phone] I discussed the patients case with KIMBERLY Tuttle. He is going to evaluate the patient for further treatment. Impression Primary Impression: Vomiting and diarrhea Additional Impression: Lactic acidosis Scribe Attestation The scribe's documentation has been prepared under my direction and personally reviewed by me in its entirety. I confirm that the note above accurately reflects all work, treatment, procedures, and medical decision making performed by me. Departure Information Dispostion Being Evaluated By Hospitalist Referrals RV. Ewing MD (PCP) Problem Qualifiers
[2016-10-14 10:40] LABS: BASO % 0.1 %; BASO ABS # 0.01 K/uL (0-0.2); COMPLETE YES; EOS % 0.3 %; HEMATOCRIT 45.2 % (42-52); LYMPH % 28.8 %; LYMPH ABS # 1.94 K/uL (1.2-3.4); MEAN CELL VOLUME 90.9 fL (80-100); MEAN CORPUSCULAR HEMOGLOBIN 30.8 pg (25-34); MEAN CORPUSCULAR HGB CONC 33.8 g/dl (32-36); MEAN PLATELET VOLUME 10.1 fL (7.4-10.4); MONO % 8.5 %; NEUT % 62.3 %; PLATELET COUNT 148 K/uL (130-400); RED BLOOD COUNT 4.97 M/uL (4.7-6.1); WHITE BLOOD COUNT 6.74 K/uL (4.8-10.8)
[2016-10-14 10:59] LABS: CALCIUM 9.3 mg/dl (8.5-10.1); MAGNESIUM 1.7 mg/dl (1.8-2.4); POTASSIUM 3.6 mmol/L (3.5-5.1)
[2016-10-14] MEDS ORDERED: OPTIRAY 320 IV PRN (11:00)
[2016-10-14 11:22] LABS: URINE APPEARANCE CLEAR (CLEAR); URINE BILIRUBIN NEG (NEG); URINE COLOR DK YELLOW; URINE NITRITE NEG (NEG); URINE SPECIFIC GRAVITY 1.019 (1.000-1.030); UROBILINOGEN NEG (NEG); ZZUR CULT IF INDIC CLEAN CATCH NO
[2016-10-14 11:31] LABS: MANUAL MICROSCOPIC REQUIRED? NO; REVIEW REQ? NO
--- NOTE | 2016-10-14 12:30 | DIAGNOSTIC IMAGING REPORT ---
CT OF THE ABDOMEN AND PELVIS WITH CONTRAST CLINICAL HISTORY: Vomiting, elevated lactate. COMPARISON STUDY: Renal ultrasound July 22, 2015. TECHNIQUE: Following IV administration of 93 mL of Optiray-320, axial images of the abdomen and pelvis were obtained from the lung bases to the proximal femurs. Images were reviewed in the axial, sagittal, and coronal planes. IV contrast was administered without complication. A dose lowering technique was utilized adhering to the principles of ALARA. CT DOSE: 763.62 mGy.cm FINDINGS: Several subcentimeter hepatic lesions are too small to characterize but likely benign. There is fatty infiltration of the liver. The spleen, adrenal glands and pancreas are unremarkable. There is no hydronephrosis. There is no evidence for a bowel obstruction. The appendix is normal. Apparent long segment colonic wall thickening is likely due to underdistention. There is no pneumatosis, free air or portal venous gas. There is mild dilatation of the infrarenal abdominal aorta which measures 2.9 cm. There is moderate atherosclerotic plaque. Proximal major mesenteric vessels are patent. No suspicious skeletal lesions are identified. There is moderate distention of the bladder and mild enlargement of the prostate. A fat-containing left inguinal hernia is present. There are postoperative findings within the spine. IMPRESSION: 1. Apparent mild long segment colonic wall thickening. This is likely due to underdistention although a nonspecific colitis could appear similar. 2. Fatty liver. 3. Moderate distention of the bladder. Moderate enlargement of the prostate. No hydronephrosis. 4. Ectatic infrarenal abdominal aorta, measuring 2.8 cm. Extensive atherosclerotic plaque of the abdominal aorta and major mesenteric vessels. Proximal major mesenteric vessels patent. Electronically signed by: Lane Treviño M.D. 10/14/2016 12:28 PM Dictated Date/Time: 10/14/2016 12:18 PM
[2016-10-14] MEDS ORDERED: PROMETHAZINE HCL INJ 12.5 MG in SODIUM CHLORIDE 0.9% 50ML 50 ML IV STA (13:20)
[2016-10-14] MEDS ORDERED: PROMETHAZINE HCL INJ 25 MG/ML 1 ML VIAL ONE (13:25)
[2016-10-14] MEDS ORDERED: CIPROFLOXACIN 250 MG TAB PO SCH (15:30)
[2016-10-14] MEDS ORDERED: ALUMINUM/MAGNESIUM/SIMETH (MAALOX MAX) 30 ML UDC PO PRN (15:30)
[2016-10-14] MEDS ORDERED: DEXTROSE 50% 50 ML SYR IV PRN (15:30)
[2016-10-14] MEDS ORDERED: ZOLPIDEM TARTRATE 5 MG TAB PO PRN (15:30)
[2016-10-14] MEDS ORDERED: ACETAMINOPHEN 325 MG TAB PO PRN (15:30)
[2016-10-14] MEDS ORDERED: GLUCOSE 40% GEL 15 GM TUBE PO PRN (15:30)
[2016-10-14] MEDS ORDERED: NITROGLYCERIN 0.4 MG SL PER TAB CHARGE SL PRN (15:30)
[2016-10-14] MEDS ORDERED: GLUCOSE 10 TABS/TUBE PO PRN (15:30)
[2016-10-14] MEDS ORDERED: METRONIDAZOLE / NSS 500 MG in PREMIXED NSS 100 ML IV SCH (15:30)
[2016-10-14] MEDS ORDERED: MAGNESIUM HYDROXIDE SUSP 30 ML UDC PO PRN (15:30)
[2016-10-14] MEDS ORDERED: GLUCAGON FOR INJ 1 MG VIAL SQ PRN (15:30)
[2016-10-14] MEDS ORDERED: NITROGLYCERIN 0.4 MG SL PER TAB CHARGE UT PRN (15:30)
[2016-10-14 15:42] VITALS: Ht 172.7 cm; Wt 90.9 kg
--- NOTE | 2016-10-14 16:23 | HISTORY & PHYSICAL EXAMINATION ---
DATE OF ADMISSION: 10/14/2016 CHIEF COMPLAINT: Diarrhea/vomiting. HISTORY OF PRESENT ILLNESS: The patient is a 76-year-old gentleman with a past medical history of coronary artery disease status post CABG x2, multiple PCIs, diabetes mellitus insulin requiring, hypertension, carotid artery stenosis status post carotid endarterectomy, dyslipidemia, atrial flutter and morbid obesity. The patient was in his regular state of health until 2 days ago when he started developing diarrhea with dark stools and nausea/vomiting. The patient denies any blood in the stool or in the vomit and he was not able to confirm if he had black stools or melena. He stated he was just dark. The patient went to the bathroom 5-6 times every day since 2 days ago until today he decided to come to the ED for further evaluation and management. Admits to some abdominal crampy mild contractions with the diarrhea and the vomiting. REVIEW OF SYSTEMS: Denies any headache, double vision, blurry vision, but admits to chronic very low visual acuity. 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 He does not have it right now. Denies any abdominal pain aside from what was described in the HPI. Denies any burning sensation in the urine or blood. Denies any focal weakness, tingling, numbness. Rest of the review of system is negative. PAST MEDICAL HISTORY: As mentioned in HPI. FAMILY HISTORY: For diabetes mellitus in his father and liver cirrhosis in his mother, hypertension and stroke in his father's side. SOCIAL HISTORY: Former smoker, currently , lives alone. CURRENT MEDICATIONS: 1. Aspirin 81 mg daily. 2. QVAR inhalation. 3. Multaq 400 mg p.o. b.i.d. 4. Lasix 40 mg daily. 5. Insulin isophane KwikPen 30 units q.a.m. and 55 units q.p.m. 6. Combivent 1 puff q.i.d. 7. Imdur extended release 120 mg p.o. b.i.d. 8. Levothyroxine 100 mcg p.o. daily. 9. Metformin 1000 mg p.o. b.i.d. 10. Metoprolol 100 mg p.o. b.i.d. 11. Multivitamins. 12. Potassium supplements. 13. Ranexa. 14. Simvastatin 15. Flomax. 16. Also, patient takes alprazolam and [place] for pain with Nitrostat p.r.n. chest pain. ALLERGIES: No known drug allergies. PHYSICAL EXAMINATION: VITAL SIGNS: Temperature 36.7, heart rate 66, respirations 19, blood pressure 125/61, pulse ox is 92% on room air. GENERAL: The patient is obese, not in acute distress. HEAD, EYES, EARS, NOSE, AND THROAT: No jaundice. No pallor. Moist mucous membranes. NECK: Supple. HEART: S1, S2 normal. No gallop, rub or murmur. LUNGS: Clear to auscultation bilaterally. Normal chest wall expansion. ABDOMEN: Soft, nondistended, nontender. NEUROLOGIC: Awake, alert, oriented to time, place, and person. Moves all extremities. Sensation intact. Cranial nerves II-XII appear to be intact. MUSCULOSKELETAL: No muscle atrophy. No significant swelling, erythema in any joint. SKIN: No rash or erythema exposed skin area. PSYCHIATRIC: The patient has normal process of thinking and appropriate affect. IMAGING: CT abdomen and pelvis with contrast was done and showed mild long segment colonic wall thickening and appears to be as per radiologist under distended bowel, although he was not able to rule out colitis, some fatty liver, moderate distention of the bladder, moderate enlargement of the prostate. No hydronephrosis. Ectatic infrarenal abdominal damaging measuring 2.8 cm with extensive atherosclerosis in the abdominal aorta and vessels, proximal major ventricular vessels patent. LABORATORY DATA: White blood cell count 6.7, hemoglobin is 15.3 and platelet count is 148, BUN is 10, creatinine is 1. Sodium 138, potassium 3.6. Urine did not show any indication of UTI. ASSESSMENT: 1. Diarrhea/nausea/vomiting with questionable thickening of a long segment of colon, most likely gastroenteritis, but cannot rule out colitis. -- Start patient on IV fluid hydration. Start patient on Zofran/stool studies including stool culture, C. diff, stool white blood cell, occult blood in the stools. -- We will start patient on low dose Flagyl at 500 b.i.d. and low dose Cipro to treat for potential colitis. (addendum switched to zosyn due to interaction with Multaq) -- Continue supportive care. 2. Coronary artery disease/coronary artery bypass graft/hypertension/dyslipidemia. -- Blood pressure medications. Continue aspirin and continue simvastatin. 3. Diabetes mellitus, insulin-dependent. -- Continue isophane insulin on a lower dose, hold metformin, start him on sliding scale to bridge the gap until he is able to eat appropriately. 4. Hypothyroidism. Continue Synthroid. 5. Sequential compression devices/heparin b.i.d. for deep venous thrombosis prophylaxis. MTDD
[2016-10-14 16:47] VITALS: BP 153/62; PULSE 59; TEMP 36.6; O2SAT 95
--- NOTE | 2016-10-14 16:57 | Progress Note ---
Progress Note Date of Service Oct 14, 2016. Progress Note drug interaction between Multaq and renexa which he was taking as OP, check EKG in am for QTc prolongation. Also switched cipro/flagyl to zosyn to avoid interaction and added probiotics.
[2016-10-14] MEDS ORDERED: PIPERACILL/TAZOBAC IV 3.375 GM in DEXTROSE 5% 100ML IV ONE (17:00)
[2016-10-14 17:04] LABS: INR 1.1 (0.9-1.1); PROTHROMBIN TIME (PATIENT) 11.7 SECONDS (9.0-12.0)
[2016-10-14] MEDS: INSULIN HUMAN NPH SC SCH (17:05)
[2016-10-14] MEDS: INSULIN ASPART 100 UNITS/ML 3 ML PEN SC SCH ×2 (17:06→21:00)
[2016-10-14] MEDS: IPRATROPIUM BROMIDE/ALBUTEROL respimat INH INH SCH ×2 (17:08→21:05)
[2016-10-14] MEDS: SODIUM CHLORIDE 0.9% 1000ML 1,000 ML IV SCH (17:09)
[2016-10-14] MEDS ORDERED: PIPERACILL/TAZOBAC CONSULT ACTIVE PRN (17:15)
[2016-10-14 19:57] VITALS: BP 155/80; PULSE 82; TEMP 37; O2SAT 93
[2016-10-14] MEDS: ONDANSETRON INJ 2 MG/ML 2 ML VIAL IV PRN (21:05)
[2016-10-14] MEDS: DRONEDARONE 400 MG TAB PO SCH (21:06)
[2016-10-14] MEDS: RANOLAZINE 500 MG ER TAB PO SCH (21:06)
[2016-10-14] MEDS: ISOSORBIDE MONONITRATE 60 MG TABCR PO SCH (21:07)
[2016-10-14] MEDS: TAMSULOSIN HCL 0.4 MG CAP PO SCH (21:07)
[2016-10-14] MEDS: SIMVASTATIN 20 MG TAB PO SCH (21:08)
[2016-10-14] MEDS: METOPROLOL SUCC 50MG EXT REL TAB PO SCH (21:08)
[2016-10-14] MEDS: HEPARIN SOD 5000 UNIT/0.5 ML CARP SQ SCH (21:10)
[2016-10-14 23:50] VITALS: BP 133/65; PULSE 61; TEMP 36.7; O2SAT 94
[2016-10-14] MEDS: PIPERACILL/TAZOBAC IV 3.375 GM in DEXTROSE 5% 100ML IV SCH (23:53)
[2016-10-15] VITALS (8 sets, daily range): BP systolic 106–143; BP diastolic 64–77; PULSE 62–90; TEMP 36.5–37.1; O2SAT 93–94
[2016-10-15] MEDS: LEVOTHYROXINE 100 MCG TAB PO SCH (04:41)
[2016-10-15] MEDS: ONDANSETRON INJ 2 MG/ML 2 ML VIAL IV PRN ×3 (05:46→20:55)
[2016-10-15 06:03] LABS: BASO % 0.1 %; BASO ABS # 0.01 K/uL (0-0.2); COMPLETE YES; EOS % 2.9 %; HEMATOCRIT 46.9 % (42-52); IG% 0.2 %; LYMPH % 31.7 %; LYMPH ABS # 2.74 K/uL (1.2-3.4); MEAN CELL VOLUME 92.3 fL (80-100); MEAN CORPUSCULAR HEMOGLOBIN 30.3 pg (25-34); MEAN CORPUSCULAR HGB CONC 32.8 g/dl (32-36); MEAN PLATELET VOLUME 10.2 fL (7.4-10.4); MONO % 8.1 %; PLATELET COUNT 145 K/uL (130-400); RED BLOOD COUNT 5.08 M/uL (4.7-6.1); WHITE BLOOD COUNT 8.64 K/uL (4.8-10.8)
[2016-10-15 06:35] LABS: BUN/CREATININE RATIO 8.1 (10-20); CALCIUM 9.1 mg/dl (8.5-10.1); CREATININE 1.2 mg/dl (0.60-1.40); MAGNESIUM 1.8 mg/dl (1.8-2.4); POTASSIUM 3.2 mmol/L (3.5-5.1)
[2016-10-15 06:38] LABS: ALB/GLOB RATIO 0.9 (0.9-2); PHOSPHORUS 3.4 mg/dl (2.5-4.9)
[2016-10-15] MEDS: INSULIN ASPART 100 UNITS/ML 3 ML PEN SC SCH ×4 (07:00→20:47)
[2016-10-15] MEDS: INSULIN HUMAN NPH SC SCH ×2 (08:00→16:00)
[2016-10-15] MEDS: PIPERACILL/TAZOBAC IV 3.375 GM in DEXTROSE 5% 100ML IV SCH ×2 (08:00→16:10)
[2016-10-15] MEDS ORDERED: POTASSIUM CHLORIDE 10 MEQ TABCR PO ONE (08:00)
[2016-10-15] MEDS: ALPRAZOLAM 0.25 MG TAB PO PRN ×3 (08:36→21:28)
[2016-10-15] MEDS: HYDROCODONE/ACETAMOPHEN 5/325MG TAB PO PRN ×3 (08:36→21:30)
[2016-10-15] MEDS: LACTOBACILLUS ACIDOPHILUS 1 GM PACK PO SCH ×2 (08:40→11:30)
[2016-10-15] MEDS: METOPROLOL SUCC 50MG EXT REL TAB PO SCH ×2 (08:41→20:44)
[2016-10-15] MEDS: RANOLAZINE 500 MG ER TAB PO SCH ×2 (08:41→20:44)
[2016-10-15] MEDS: ISOSORBIDE MONONITRATE 60 MG TABCR PO SCH ×2 (08:42→20:45)
[2016-10-15] MEDS: IPRATROPIUM BROMIDE/ALBUTEROL respimat INH INH SCH ×4 (08:42→20:49)
[2016-10-15] MEDS: ASPIRIN 81 MG ECTAB PO SCH (08:42)
[2016-10-15] MEDS: DRONEDARONE 400 MG TAB PO SCH ×2 (08:42→20:45)
[2016-10-15] MEDS: BECLOMETHASONE DIP HFA 80 MCG 8.7G INH INH SCH (08:43)
[2016-10-15] MEDS: HEPARIN SOD 5000 UNIT/0.5 ML CARP SQ SCH ×2 (08:51→20:47)
--- NOTE | 2016-10-15 14:11 | Progress Note ---
Subjective Date of Service: Oct 15, 2016. Subjective Pt evaluation today including: conversation w/ patient, physical exam, chart review, lab review, review of studies, review of inpatient medication list Pt still reports some diarrhea Resting in bed comfortably No fevers or chills No acute events overnight Problem List Medical Problems: (1) Acute bronchitis Status: Acute (2) Chest pain, precordial Status: Acute (3) Chronic anemia Status: Acute (4) Dizziness Status: Acute (5) Facial paresthesia Status: Acute (6) Lactic acidosis Status: Acute (7) Precordial chest pain Status: Acute (8) Precordial chest pain Status: Acute (9) SOB (shortness of breath) Status: Acute (10) Vomiting and diarrhea Status: Acute Review of Systems Constitutional: No fever, No chills, No sweats, No weight loss, No weakness ENT: No hearing loss, No unusual epistaxis, No nasal symptoms, No sore throat Respiratory: No cough, No sputum, No wheezing, No shortness of breath, No dyspnea on exertion Cardiac: No chest pain, No orthopnea, No PND, No edema Abdomen: + diarrhea, No pain, No nausea, No vomiting Musculoskeletal: No joint pain, No muscle pain, No swelling, No calf pain Male : No dysuria, No urinary frequency, No incontinence, No slowing stream Neurologic: No memory loss, No paralysis, No weakness, No numbness/tingling Psychiatric: No depression symptoms, No anhedonism, No anxiety, No insomnia Endo: No fatigue, No excessive thirst Skin: No rash, No itch Objective Vital Signs Date Time Temp Pulse Resp B/P (MAP) Pulse Ox O2 Delivery O2 Flow Rate FiO2 10/15/16 13:07 36.5 90 18 143/75 (97) 94 Room Air 10/15/16 13:00 37.0 80 19 94 10/15/16 12:09 37.0 80 19 106/64 (78) 94 Room Air 10/15/16 12:00 Room Air 10/15/16 08:34 37.1 76 19 143/68 (93) 93 Room Air 10/15/16 08:00 Room Air 10/15/16 04:40 Room Air 10/15/16 04:21 36.7 64 16 131/64 (86) 94 Room Air 10/15/16 00:00 Room Air 10/14/16 23:50 36.7 61 22 133/65 (87) 94 Room Air 10/14/16 21:05 Room Air 10/14/16 19:57 37.0 82 20 155/80 (105) 93 Room Air 10/14/16 16:47 36.6 59 16 153/62 (92) 95 Room Air 10/14/16 16:01 66 19 125/61 92 10/14/16 15:42 Room Air Physical Exam General Appearance: WD/WN, no apparent distress Neck: supple, no adenopathy, thyroid normal, no JVD Respiratory/Chest: chest non-tender, lungs clear, normal breath sounds, no respiratory distress Cardiovascular: regular rate, rhythm, no edema, no gallop, no JVD Abdomen: normal bowel sounds, non tender, soft, no organomegaly Neurologic/Psychiatric: no motor/sensory deficits, alert, normal mood/affect, oriented x 3 Laboratory Results Last 24 Hours Test 10/14/16 16:42 10/14/16 20:30 10/15/16 00:00 10/15/16 05:10 Bedside Glucose 130 mg/dl 132 mg/dl 101 mg/dl Stool Occult Blood NEGATIVE Test 10/15/16 05:38 White Blood Count 8.64 K/uL Red Blood Count 5.08 M/uL Hemoglobin 15.4 g/dL Hematocrit 46.9 % Mean Corpuscular Volume 92.3 fL Mean Corpuscular Hemoglobin 30.3 pg Mean Corpuscular Hemoglobin Concent 32.8 g/dl Platelet Count 145 K/uL Mean Platelet Volume 10.2 fL Neutrophils (%) (Auto) 57.0 % Lymphocytes (%) (Auto) 31.7 % Monocytes (%) (Auto) 8.1 % Eosinophils (%) (Auto) 2.9 % Basophils (%) (Auto) 0.1 % Neutrophils # (Auto) 4.92 K/uL Lymphocytes # (Auto) 2.74 K/uL Monocytes # (Auto) 0.70 K/uL Eosinophils # (Auto) 0.25 K/uL Basophils # (Auto) 0.01 K/uL RDW Standard Deviation 48.8 fL RDW Coefficient of Variation 14.4 % Immature Granulocyte % (Auto) 0.2 % Immature Granulocyte # (Auto) 0.02 K/uL Sodium Level 138 mmol/L Potassium Level 3.2 mmol/L Chloride Level 99 mmol/L Carbon Dioxide Level 31 mmol/L Anion Gap 8.0 mmol/L Blood Urea Nitrogen 10 mg/dl Creatinine 1.20 mg/dl Est Creatinine Clear Calc Drug Dose 58.8 ml/min Estimated GFR () 68.6 Estimated GFR (Non- 59.2 BUN/Creatinine Ratio 8.1 Random Glucose 105 mg/dl Calcium Level 9.1 mg/dl Phosphorus Level 3.4 mg/dl Magnesium Level 1.8 mg/dl Total Bilirubin 1.3 mg/dl Aspartate Amino Transf (AST/SGOT) 51 U/L Alanine Aminotransferase (ALT/SGPT) 51 U/L Alkaline Phosphatase 59 U/L Total Protein 7.7 gm/dl Albumin 3.6 gm/dl Globulin 4.1 gm/dl Albumin/Globulin Ratio 0.9 Assessment and Plan Diarrhea/nausea/vomiting with ?colitis per CT scan abd/pelvis of colon, most likely gastroenteritis, but cannot rule out colitis. Cont IVF at this time. Pt reports continued diarrhea. Stool c&s sent. Cdiff neg. No leukocytosis or fevers. Cont on zosyn and flagyl at this time. Coronary artery disease w/ hx of CABG/hypertension/dyslipidemia. Continue aspirin and continue simvastatin, toprol IDDM, stable, cont ISS and metformin still on hold Hypothyroidism, stable, continue synthroid DVT ppx with SCDs
[2016-10-15] MEDS: SODIUM CHLORIDE 0.9% 1000ML 1,000 ML IV SCH (15:27)
[2016-10-15] MEDS ORDERED: NURSING VERBAL MED ORDER ONE (17:15)
[2016-10-15] MEDS ORDERED: INSULIN HUMAN NPH SC SCH (17:30)
[2016-10-15] MEDS: LACTOBACILLUS ACIDOPHILUS (FLORANEX) TAB PO SCH (17:44)
[2016-10-15] MEDS: TAMSULOSIN HCL 0.4 MG CAP PO SCH (20:44)
[2016-10-15] MEDS: SIMVASTATIN 20 MG TAB PO SCH (20:44)
[2016-10-16 00:09] VITALS: BP 118/67; PULSE 67; TEMP 36.8; O2SAT 91
[2016-10-16] MEDS: PIPERACILL/TAZOBAC IV 3.375 GM in DEXTROSE 5% 100ML IV SCH ×4 (00:21→23:37)
[2016-10-16] MEDS: LEVOTHYROXINE 100 MCG TAB PO SCH (05:31)
[2016-10-16 07:21] VITALS: BP 156/77; PULSE 63; TEMP 36.5; O2SAT 92
[2016-10-16] MEDS: ONDANSETRON INJ 2 MG/ML 2 ML VIAL IV PRN (08:55)
[2016-10-16] MEDS: LACTOBACILLUS ACIDOPHILUS (FLORANEX) TAB PO SCH (09:07)
[2016-10-16] MEDS: IPRATROPIUM BROMIDE/ALBUTEROL respimat INH INH SCH ×4 (09:07→20:39)
[2016-10-16] MEDS: BECLOMETHASONE DIP HFA 80 MCG 8.7G INH INH SCH (09:08)
[2016-10-16] MEDS: METOPROLOL SUCC 50MG EXT REL TAB PO SCH ×2 (09:08→20:41)
[2016-10-16] MEDS: DRONEDARONE 400 MG TAB PO SCH ×2 (09:08→20:40)
[2016-10-16] MEDS: ISOSORBIDE MONONITRATE 60 MG TABCR PO SCH ×2 (09:09→20:40)
[2016-10-16] MEDS: RANOLAZINE 500 MG ER TAB PO SCH ×2 (09:09→20:41)
[2016-10-16] MEDS: ASPIRIN 81 MG ECTAB PO SCH (09:09)
[2016-10-16] MEDS: ALPRAZOLAM 0.25 MG TAB PO PRN ×2 (09:12→16:03)
[2016-10-16] MEDS: HYDROCODONE/ACETAMOPHEN 5/325MG TAB PO PRN ×2 (09:13→22:10)
[2016-10-16] MEDS: INSULIN ASPART 100 UNITS/ML 3 ML PEN SC SCH ×4 (09:17→20:38)
[2016-10-16] MEDS: INSULIN HUMAN NPH SC SCH ×2 (09:18→17:20)
[2016-10-16] MEDS: HEPARIN SOD 5000 UNIT/0.5 ML CARP SQ SCH ×2 (09:19→20:39)
[2016-10-16 11:54] VITALS: BP_SYST 128; BP_SYST 137; BP_SYST 139; BP_DIAS 71; BP_DIAS 75; BP_DIAS 77; PULSE 62; PULSE 74; PULSE 78
[2016-10-16] MEDS: LACTOBACILLUS ACIDOPHILUS 1 GM PACK PO SCH ×2 (12:21→17:16)
--- NOTE | 2016-10-16 14:32 | Progress Note ---
Subjective Date of Service: Oct 16, 2016. Subjective Pt evaluation today including: conversation w/ patient, conversation w/ family , physical exam, chart review, lab review, review of inpatient medication list Problem List Medical Problems: (1) Acute bronchitis Status: Acute (2) Chest pain, precordial Status: Acute (3) Chronic anemia Status: Acute (4) Dizziness Status: Acute (5) Facial paresthesia Status: Acute (6) Lactic acidosis Status: Acute (7) Precordial chest pain Status: Acute (8) Precordial chest pain Status: Acute (9) SOB (shortness of breath) Status: Acute (10) Vomiting and diarrhea Status: Acute Review of Systems Constitutional: No see HPI, No fever, No chills, No sweats, No weight loss, No weakness, No fatigue, No problem reported Eyes: No see HPI, No worsening of vision, No eye pain, No redness, No discharge , No diplopia, No problem reported ENT: No see HPI, No hearing loss, No unusual epistaxis, No nasal symptoms, No sore throat, No tinnitus, No dental problems, No trouble swallowing, No problem reported Respiratory: No see HPI, No cough, No sputum, No wheezing, No shortness of breath, No dyspnea on exertion, No dyspnea at rest, No hemoptysis, No problem reported Cardiac: No see HPI, No chest pain, No orthopnea, No PND, No edema, No claudication, No palpitations, No problem reported Abdomen: + pain, + diarrhea, No see HPI, No nausea, No vomiting, No constipation, No GI bleeding, No problem reported Musculoskeletal: No see HPI, No joint pain, No muscle pain, No swelling, No calf pain, No problem reported Male : No see HPI, No dysuria, No urinary frequency, No incontinence, No nocturia more than once/night, No slowing stream, No hematuria, No sexual dysfunction, No problem reported Neurologic: No see HPI, No memory loss, No paralysis, No weakness, No numbness/ tingling, No vertigo, No balance problems, No problem reported Psychiatric: No see HPI, No depression symptoms, No anhedonism, No anxiety, No insomnia, No substance abuse, No problem reported Heme: No see HPI, No abnormal bleeding/bruising, No clotting problems, No swollen lymph nodes, No night sweats, No problem reported Endo: No see HPI, No fatigue, No excessive thirst, No excessive urination, No problem reported Skin: No see HPI, No rash, No itch, No new/changing skin lesions, No color change, No bleeding, No problem reported Objective Vital Signs Date Time Temp Pulse Resp B/P (MAP) Pulse Ox O2 Delivery O2 Flow Rate FiO2 10/16/16 11:54 62 139/75 (96) 78 128/71 (90) 74 137/77 (97) 10/16/16 07:21 36.5 63 18 156/77 (103) 92 Room Air 10/16/16 01:01 Room Air 10/16/16 00:09 36.8 67 16 118/67 (84) 91 Room Air 10/15/16 20:30 Room Air 10/15/16 15:31 94 Room Air 10/15/16 15:22 37.1 62 18 143/77 (99) 94 Room Air Physical Exam General Appearance: WD/WN, no apparent distress Eyes: normal inspection, EOMI ENT: normal ENT inspection, hearing grossly normal Neck: supple Respiratory/Chest: chest non-tender, lungs clear, normal breath sounds, no respiratory distress, no accessory muscle use Cardiovascular: regular rate, rhythm, no edema, no gallop, no JVD, no murmur Abdomen: soft, no organomegaly, no pulsatile mass, + distended, + tenderness Extremities: normal range of motion, non-tender, normal inspection, no pedal edema Neurologic/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 presented w diarrhea with dark stools and nausea/vomiting and abd pain, ASSESSMENT: 1. Diarrhea/nausea/vomiting with questionable thickening of a long segment of colon, most likely gastroenteritis, but cannot rule out colitis. -- Continue IV fluid hydration. Start patient on Zofran/stool stool culture and C. diff were negative -- continue zosyn , abdominal pain improved but still there, had diarrhea X 1 tody thus far 2. Coronary artery disease/coronary artery bypass graft/hypertension/dyslipidemia. -- continue Blood pressure medications. Continue aspirin and continue simvastatin. 3. Diabetes mellitus, insulin-dependent. -- Continue isophane insulin on a lower dose, hold metformin, continue him on sliding scale to bridge the gap until he is able to eat appropriately. 4. Hypothyroidism. Continue Synthroid. 5. Sequential compression devices/heparin b.i.d. for deep venous thrombosis prophylaxis.
[2016-10-16 15:27] VITALS: BP 136/64; PULSE 67; TEMP 36.5; O2SAT 94
[2016-10-16] MEDS: SODIUM CHLORIDE 0.9% 1000ML 1,000 ML IV SCH (16:03)
[2016-10-16] MEDS: TAMSULOSIN HCL 0.4 MG CAP PO SCH (20:41)
[2016-10-16] MEDS: SIMVASTATIN 20 MG TAB PO SCH (20:41)
[2016-10-16 23:12] VITALS: BP 147/71; PULSE 67; TEMP 36.7
[2016-10-17] MEDS: LEVOTHYROXINE 100 MCG TAB PO SCH (05:42)
[2016-10-17 07:26] VITALS: BP 154/78; PULSE 57; TEMP 36.8; O2SAT 93
[2016-10-17 07:41] VITALS: PULSE 70
[2016-10-17] MEDS: ASPIRIN 81 MG ECTAB PO SCH (07:42)
[2016-10-17] MEDS: LACTOBACILLUS ACIDOPHILUS 1 GM PACK PO SCH ×3 (07:43→17:54)
[2016-10-17] MEDS: IPRATROPIUM BROMIDE/ALBUTEROL respimat INH INH SCH ×4 (07:43→22:05)
[2016-10-17] MEDS: DRONEDARONE 400 MG TAB PO SCH ×2 (07:44→22:07)
[2016-10-17] MEDS: BECLOMETHASONE DIP HFA 80 MCG 8.7G INH INH SCH (07:44)
[2016-10-17] MEDS: RANOLAZINE 500 MG ER TAB PO SCH ×2 (07:44→22:07)
[2016-10-17 07:46] LABS: HEMATOCRIT 38.6 % (42-52); MEAN CELL VOLUME 92.3 fL (80-100); MEAN CORPUSCULAR HEMOGLOBIN 30.9 pg (25-34); MEAN CORPUSCULAR HGB CONC 33.4 g/dl (32-36); RED BLOOD COUNT 4.18 M/uL (4.7-6.1); WHITE BLOOD COUNT 5.92 K/uL (4.8-10.8)
[2016-10-17] MEDS: ISOSORBIDE MONONITRATE 60 MG TABCR PO SCH ×2 (07:46→22:08)
[2016-10-17] MEDS: METOPROLOL SUCC 50MG EXT REL TAB PO SCH ×2 (07:47→22:08)
[2016-10-17] MEDS: ALPRAZOLAM 0.25 MG TAB PO PRN ×2 (07:52→18:00)
[2016-10-17] MEDS: PIPERACILL/TAZOBAC IV 3.375 GM in DEXTROSE 5% 100ML IV SCH ×2 (07:53→16:27)
[2016-10-17 08:17] LABS: MEAN PLATELET VOLUME 9.9 fL (7.4-10.4); PLATELET COUNT 92 K/uL (130-400)
[2016-10-17 08:19] LABS: BUN/CREATININE RATIO 6.7 (10-20); CALCIUM 8.3 mg/dl (8.5-10.1); MAGNESIUM 1.9 mg/dl (1.8-2.4); POTASSIUM 3.4 mmol/L (3.5-5.1)
[2016-10-17 08:20] LABS: BASO % 0.3 %; BASO ABS # 0.02 K/uL (0-0.2); COMPLETE YES; EOS % 6.3 %; IG% 0.2 %; LYMPH % 32.3 %; LYMPH ABS # 1.91 K/uL (1.2-3.4); MONO % 9.3 %; NEUT % 51.6 %; PLT ESTIMATE DECREASED
[2016-10-17 08:27] LABS: ALB/GLOB RATIO 0.7 (0.9-2); PHOSPHORUS 2.8 mg/dl (2.5-4.9)
[2016-10-17] MEDS: INSULIN HUMAN NPH SC SCH ×2 (09:00→18:00)
[2016-10-17] MEDS: INSULIN ASPART 100 UNITS/ML 3 ML PEN SC SCH ×4 (09:00→22:12)
[2016-10-17] MEDS: HEPARIN SOD 5000 UNIT/0.5 ML CARP SQ SCH ×2 (09:01→22:13)
[2016-10-17 14:55] VITALS: BP 160/76; PULSE 63; TEMP 36.5; O2SAT 95
[2016-10-17] MEDS: SODIUM CHLORIDE 0.9% 1000ML 1,000 ML IV SCH (16:27)
[2016-10-17] MEDS: HYDROCODONE/ACETAMOPHEN 5/325MG TAB PO PRN (18:01)
--- NOTE | 2016-10-17 19:25 | Progress Note ---
Subjective Date of Service: Oct 17, 2016. Subjective Pt evaluation today including: conversation w/ patient, physical exam, chart review, lab review, review of inpatient medication list Problem List Medical Problems: (1) Acute bronchitis Status: Acute (2) Chest pain, precordial Status: Acute (3) Chronic anemia Status: Acute (4) Dizziness Status: Acute (5) Facial paresthesia Status: Acute (6) Lactic acidosis Status: Acute (7) Precordial chest pain Status: Acute (8) Precordial chest pain Status: Acute (9) SOB (shortness of breath) Status: Acute (10) Vomiting and diarrhea Status: Acute Review of Systems Constitutional: No see HPI, No fever, No chills, No sweats, No weight loss, No weakness, No fatigue, No problem reported Eyes: No see HPI, No worsening of vision, No eye pain, No redness, No discharge , No diplopia, No problem reported ENT: No see HPI, No hearing loss, No unusual epistaxis, No nasal symptoms, No sore throat, No tinnitus, No dental problems, No trouble swallowing, No problem reported Respiratory: No see HPI, No cough, No sputum, No wheezing, No shortness of breath, No dyspnea on exertion, No dyspnea at rest, No hemoptysis, No problem reported Cardiac: No see HPI, No chest pain, No orthopnea, No PND, No edema, No claudication, No palpitations, No problem reported Abdomen: + pain, + diarrhea, No see HPI, No nausea, No vomiting, No constipation, No GI bleeding, No problem reported Musculoskeletal: No see HPI, No joint pain, No muscle pain, No swelling, No calf pain, No problem reported Male : No see HPI, No dysuria, No urinary frequency, No incontinence, No nocturia more than once/night, No slowing stream, No hematuria, No sexual dysfunction, No problem reported Neurologic: No see HPI, No memory loss, No paralysis, No weakness, No numbness/ tingling, No vertigo, No balance problems, No problem reported Psychiatric: No see HPI, No depression symptoms, No anhedonism, No anxiety, No insomnia, No substance abuse, No problem reported Heme: No see HPI, No abnormal bleeding/bruising, No clotting problems, No swollen lymph nodes, No night sweats, No problem reported Endo: No see HPI, No fatigue, No excessive thirst, No excessive urination, No problem reported Skin: No see HPI, No rash, No itch, No new/changing skin lesions, No color change, No bleeding, No problem reported Objective Vital Signs Date Time Temp Pulse Resp B/P (MAP) Pulse Ox O2 Delivery O2 Flow Rate FiO2 10/17/16 16:00 Room Air 10/17/16 14:55 36.5 63 20 160/76 (104) 95 Room Air 10/17/16 08:00 Room Air 10/17/16 07:41 70 10/17/16 07:26 36.8 57 18 154/78 (103) 93 Room Air 10/17/16 00:48 Room Air 10/16/16 23:12 36.7 67 18 147/71 (96) Room Air 10/16/16 19:45 Room Air Physical Exam General Appearance: WD/WN, no apparent distress Eyes: normal inspection, EOMI, + pertinent finding (base line weak visual acuity) ENT: normal ENT inspection, hearing grossly normal Neck: supple Respiratory/Chest: chest non-tender, lungs clear, normal breath sounds, no respiratory distress, no accessory muscle use Cardiovascular: regular rate, rhythm, no edema, no gallop, no JVD, no murmur Abdomen: non tender, soft, no organomegaly, + distended Extremities: normal range of motion, non-tender, normal inspection, no pedal edema Neurologic/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: 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, no motor/sensory deficits, alert, normal mood/affect, oriented x 3 Skin: normal color, warm/dry, no rash Laboratory Results Last 24 Hours Test 10/16/16 19:48 10/17/16 07:20 10/17/16 07:23 10/17/16 11:05 Bedside Glucose 160 mg/dl 96 mg/dl 109 mg/dl White Blood Count 5.92 K/uL Red Blood Count 4.18 M/uL Hemoglobin 12.9 g/dL Hematocrit 38.6 % Mean Corpuscular Volume 92.3 fL Mean Corpuscular Hemoglobin 30.9 pg Mean Corpuscular Hemoglobin Concent 33.4 g/dl Platelet Count 92 K/uL Mean Platelet Volume 9.9 fL Neutrophils (%) (Auto) 51.6 % Lymphocytes (%) (Auto) 32.3 % Monocytes (%) (Auto) 9.3 % Eosinophils (%) (Auto) 6.3 % Basophils (%) (Auto) 0.3 % Neutrophils # (Auto) 3.06 K/uL Lymphocytes # (Auto) 1.91 K/uL Monocytes # (Auto) 0.55 K/uL Eosinophils # (Auto) 0.37 K/uL Basophils # (Auto) 0.02 K/uL RDW Standard Deviation 48.1 fL RDW Coefficient of Variation 14.2 % Immature Granulocyte % (Auto) 0.2 % Immature Granulocyte # (Auto) 0.01 K/uL Platelet Estimate DECREASED Sodium Level 139 mmol/L Potassium Level 3.4 mmol/L Chloride Level 104 mmol/L Carbon Dioxide Level 31 mmol/L Anion Gap 4.0 mmol/L Blood Urea Nitrogen 7 mg/dl Creatinine 1.00 mg/dl Est Creatinine Clear Calc Drug Dose 70.8 ml/min Estimated GFR () 85.6 Estimated GFR (Non- 73.8 BUN/Creatinine Ratio 6.7 Random Glucose 76 mg/dl Calcium Level 8.3 mg/dl Phosphorus Level 2.8 mg/dl Magnesium Level 1.9 mg/dl Total Bilirubin 0.9 mg/dl Aspartate Amino Transf (AST/SGOT) 33 U/L Alanine Aminotransferase (ALT/SGPT) 38 U/L Alkaline Phosphatase 38 U/L Total Protein 6.4 gm/dl Albumin 2.7 gm/dl Globulin 3.7 gm/dl Albumin/Globulin Ratio 0.7 Test 10/17/16 16:24 Bedside Glucose 111 mg/dl Assessment and Plan 76-year-old man with Hx of CAD status post CABG x2, multiple PCIs, DMII insulin requiring, HTN, carotid artery stenosis status post carotid endarterectomy, dyslipidemia, atrial flutter and morbid obesity. presented w diarrhea with dark stools and nausea/vomiting and abd pain, ASSESSMENT: 1. Diarrhea/nausea/vomiting with questionable thickening of a long segment of colon, most likely gastroenteritis, but cannot rule out colitis. today had 2 bowel movements thus far that were diarrhea -- Continue IV fluid hydration. Start patient on Zofran/stool stool culture and C. diff were negative -- continue zosyn , abdominal pain improved but still there, had diarrhea X 1 tody thus far 2. Coronary artery disease/coronary artery bypass graft/hypertension/dyslipidemia. -- continue Blood pressure medications. Continue aspirin and continue simvastatin. 3. Diabetes mellitus, insulin-dependent. -- Continue isophane insulin on a lower dose, hold metformin, continue him on sliding scale to bridge the gap until he is able to eat appropriately. 4. Hypothyroidism. Continue Synthroid. 5. Sequential compression devices/heparin b.i.d. for deep venous thrombosis prophylaxis.
[2016-10-17] MEDS: ONDANSETRON INJ 2 MG/ML 2 ML VIAL IV PRN (19:57)
[2016-10-17] MEDS: SIMVASTATIN 20 MG TAB PO SCH (22:08)
[2016-10-17] MEDS: TAMSULOSIN HCL 0.4 MG CAP PO SCH (22:09)
[2016-10-17 22:15] VITALS: BP 148/68; PULSE 62
[2016-10-17 23:41] VITALS: BP 148/73; PULSE 64; TEMP 36.5; O2SAT 94
[2016-10-18] MEDS: PIPERACILL/TAZOBAC IV 3.375 GM in DEXTROSE 5% 100ML IV SCH ×3 (00:41→15:29)
[2016-10-18] MEDS: LEVOTHYROXINE 100 MCG TAB PO SCH (06:18)
[2016-10-18 07:34] VITALS: BP 159/82; PULSE 76; TEMP 36.4; O2SAT 92
[2016-10-18 08:27] LABS: BASO % 0.3 %; BASO ABS # 0.02 K/uL (0-0.2); COMPLETE YES; EOS % 4.1 %; HEMATOCRIT 40.6 % (42-52); IG% 0.1 %; LYMPH ABS # 1.83 K/uL (1.2-3.4); MEAN CELL VOLUME 91.6 fL (80-100); MEAN CORPUSCULAR HEMOGLOBIN 31.2 pg (25-34); NEUT % 60.5 %; PLATELET COUNT 111 K/uL (130-400); RED BLOOD COUNT 4.43 M/uL (4.7-6.1); WHITE BLOOD COUNT 6.78 K/uL (4.8-10.8)
[2016-10-18 08:57] LABS: BUN/CREATININE RATIO 5.3 (10-20); CALCIUM 8.9 mg/dl (8.5-10.1); CREATININE 0.97 mg/dl (0.60-1.40); POTASSIUM 3.4 mmol/L (3.5-5.1)
[2016-10-18 09:10] LABS: ALB/GLOB RATIO 0.8 (0.9-2); PHOSPHORUS 1.9 mg/dl (2.5-4.9)
[2016-10-18] MEDS: ASPIRIN 81 MG ECTAB PO SCH (09:17)
[2016-10-18] MEDS: DRONEDARONE 400 MG TAB PO SCH ×2 (09:17→21:00)
[2016-10-18] MEDS: RANOLAZINE 500 MG ER TAB PO SCH ×2 (09:17→21:00)
[2016-10-18] MEDS: ISOSORBIDE MONONITRATE 60 MG TABCR PO SCH ×2 (09:17→21:01)
[2016-10-18] MEDS: ALPRAZOLAM 0.25 MG TAB PO PRN ×2 (09:17→21:08)
[2016-10-18] MEDS: IPRATROPIUM BROMIDE/ALBUTEROL respimat INH INH SCH ×4 (09:18→21:00)
[2016-10-18] MEDS: METOPROLOL SUCC 50MG EXT REL TAB PO SCH ×2 (09:18→21:01)
[2016-10-18] MEDS: LACTOBACILLUS ACIDOPHILUS 1 GM PACK PO SCH ×3 (09:18→17:19)
[2016-10-18] MEDS: BECLOMETHASONE DIP HFA 80 MCG 8.7G INH INH SCH (09:18)
[2016-10-18] MEDS: HYDROCODONE/ACETAMOPHEN 5/325MG TAB PO PRN ×2 (09:19→21:09)
[2016-10-18] MEDS: INSULIN ASPART 100 UNITS/ML 3 ML PEN SC SCH ×4 (09:40→21:08)
[2016-10-18] MEDS: INSULIN HUMAN NPH SC SCH ×2 (09:40→17:24)
[2016-10-18] MEDS: HEPARIN SOD 5000 UNIT/0.5 ML CARP SQ SCH ×2 (09:41→21:08)
[2016-10-18] MEDS ORDERED: POTASSIUM CHLORIDE 10 MEQ TABCR PO STA (10:21)
[2016-10-18] MEDS: POT PHOSPHATE MONOBASIC W/ SOD TAB PO SCH ×3 (12:23→21:00)
[2016-10-18 14:46] VITALS: BP 129/69; PULSE 62; TEMP 36.8; O2SAT 94
[2016-10-18] MEDS: SODIUM CHLORIDE 0.9% 1000ML 1,000 ML IV SCH (15:29)
[2016-10-18] MEDS ORDERED: LIDOCAINE HCL 1% 20 ML VIAL INFIL STA (17:28)
--- NOTE | 2016-10-18 19:58 | Procedure Note ---
Procedure Note Procedure Date Oct 18, 2016. Procedure Description Procedure Name: Incision & Drainage right mid back skin abscess Procedure time out: side/site verified, patient ID confirmed, correct procedure Consent obtained: written Time of procedure: 18:15 Performed by: attending, medical student (David Landa MSDalia) Indications: therapeutic Contraindications: none Description: After sterile prep with betadine the abscess area was locally anesthetized with 1% lidocaine (about 4cc in total). Then, using #11 blade, a 1cm incision was made in a horizontal fashion through the abscess cavity. Copious purulent drainage exuded some of which was sent for gram stain and culture. The abscess cavity was then irrigated with copious amounts of normal saline. The area was then dressed with sterile 4x4's and optifoam. Tolerated well. Minimal blood loss. Procedure performed by MS4 David Dale; assisted by Dr. Martin. Complications: none Patient tolerated procedure: well Post-procedure vital signs: reviewed and stable Comments: I was present for all components of this procedure. Dveen Martin MD
--- NOTE | 2016-10-18 21:01 | Progress Note ---
Subjective Date of Service: Oct 18, 2016. Subjective Pt evaluation today including: conversation w/ patient, physical exam, chart review, lab review, review of studies (CT abd/pelvis from admission ), review of inpatient medication list Pain: minimal LLQ; not worsened by eating PO Intake: tolerating regular diet Voiding: no voiding problems had 1 loose stool today - was incontinent of such no blood no mucous minimal LLQ discomfort mild nausea today but no emesis c/o worsening right back skin lesion - present for "a few weeks" but getting worse Problem List Medical Problems: (1) Acute bronchitis Status: Acute (2) Chest pain, precordial Status: Acute (3) Chronic anemia Status: Acute (4) Dizziness Status: Acute (5) Facial paresthesia Status: Acute (6) Lactic acidosis Status: Acute (7) Precordial chest pain Status: Acute (8) Precordial chest pain Status: Acute (9) SOB (shortness of breath) Status: Acute (10) Vomiting and diarrhea Status: Acute Review of Systems Constitutional: No fever Respiratory: No cough, No shortness of breath Cardiac: No chest pain, No orthopnea Abdomen: + see HPI, + pain, + nausea, + diarrhea, No vomiting, No GI bleeding Objective Vital Signs Date Time Temp Pulse Resp B/P (MAP) Pulse Ox O2 Delivery O2 Flow Rate FiO2 10/18/16 16:00 Room Air 10/18/16 14:46 36.8 62 18 129/69 (89) 94 Room Air 10/18/16 07:46 Room Air 10/18/16 07:34 36.4 76 18 159/82 (107) 92 Room Air 10/18/16 00:30 Room Air 10/17/16 23:41 36.5 64 20 148/73 (98) 94 Room Air 10/17/16 22:15 62 148/68 (94) Physical Exam General Appearance: no apparent distress ENT: pharynx normal Neck: no JVD Respiratory/Chest: lungs clear, no respiratory distress, no accessory muscle use Cardiovascular: regular rate, rhythm, no gallop, no murmur Abdomen: normal bowel sounds, soft, no organomegaly, + tenderness (minimal LLQ ; no peritoneal signs) Extremities: no pedal edema Neurologic/Psychiatric: alert, oriented x 3 Skin: + pertinent finding (right mid back - 2x2cm skin abscess with central pustule present; mild associated surrouding cellulitis ) Laboratory Results Last 24 Hours Test 10/18/16 07:21 10/18/16 07:56 10/18/16 11:18 10/18/16 16:27 Bedside Glucose 90 mg/dl 123 mg/dl 98 mg/dl White Blood Count 6.78 K/uL Red Blood Count 4.43 M/uL Hemoglobin 13.8 g/dL Hematocrit 40.6 % Mean Corpuscular Volume 91.6 fL Mean Corpuscular Hemoglobin 31.2 pg Mean Corpuscular Hemoglobin Concent 34.0 g/dl Platelet Count 111 K/uL Mean Platelet Volume 10.0 fL Neutrophils (%) (Auto) 60.5 % Lymphocytes (%) (Auto) 27.0 % Monocytes (%) (Auto) 8.0 % Eosinophils (%) (Auto) 4.1 % Basophils (%) (Auto) 0.3 % Neutrophils # (Auto) 4.10 K/uL Lymphocytes # (Auto) 1.83 K/uL Monocytes # (Auto) 0.54 K/uL Eosinophils # (Auto) 0.28 K/uL Basophils # (Auto) 0.02 K/uL RDW Standard Deviation 47.8 fL RDW Coefficient of Variation 14.3 % Immature Granulocyte % (Auto) 0.1 % Immature Granulocyte # (Auto) 0.01 K/uL Sodium Level 139 mmol/L Potassium Level 3.4 mmol/L Chloride Level 107 mmol/L Carbon Dioxide Level 27 mmol/L Anion Gap 5.0 mmol/L Blood Urea Nitrogen 5 mg/dl Creatinine 0.97 mg/dl Est Creatinine Clear Calc Drug Dose 73.1 ml/min Estimated GFR () 88.8 Estimated GFR (Non- 76.6 BUN/Creatinine Ratio 5.3 Random Glucose 82 mg/dl Calcium Level 8.9 mg/dl Phosphorus Level 1.9 mg/dl Magnesium Level 2.0 mg/dl Total Bilirubin 0.9 mg/dl Aspartate Amino Transf (AST/SGOT) 37 U/L Alanine Aminotransferase (ALT/SGPT) 42 U/L Alkaline Phosphatase 40 U/L Total Protein 7.2 gm/dl Albumin 3.1 gm/dl Globulin 4.1 gm/dl Albumin/Globulin Ratio 0.8 Test 10/18/16 19:53 Bedside Glucose 163 mg/dl Assessment and Plan 76yo male: 1. colitis - clinically improving/resolving. Day #5 of IV zosyn; change to augmentin in am. C. diff and stool cx both negative. Ischemic? Considerable atherosclerotic disease on CT and thus ischemia is plausible. Last colonoscopy 05/2015 with numerous polyps removed. Cont current diet. Reassess in am. 2. skin abscess, right mid back - s/p I/D today. Wound cx sent. see separate note for full details. I do not believe this was an infected sebaceous cyst. 3. CAD with h/o CABG - no ischemic symptoms at this time. 4. T2DM - reasonable control at this time with current insulin regimen. 5. hypokalemia - replace, repeat level am. 6. HTN - controlled with current BP meds. 7. h/o a. flutter - on exam appears to be in NSR; EKG at admission also with NSR. Monitor. 8. hypophosphatemia - replace, repeat level 48 hours. Cleared by PT/OT for home d/c next 48 hours await wound cx from back Continued [facility] stay due to: multiple IV medications needed Discharge planning: home
[2016-10-18] MEDS: TAMSULOSIN HCL 0.4 MG CAP PO SCH (21:02)
[2016-10-18] MEDS: SIMVASTATIN 20 MG TAB PO SCH (21:02)
[2016-10-18 22:47] VITALS: BP 146/73; PULSE 62; TEMP 36.8; O2SAT 91
[2016-10-19] MEDS: LEVOTHYROXINE 100 MCG TAB PO SCH (05:54)
[2016-10-19 07:17] VITALS: BP 152/80; PULSE 60; TEMP 36.4; O2SAT 93
[2016-10-19] MEDS: INSULIN ASPART 100 UNITS/ML 3 ML PEN SC SCH ×4 (07:56→20:20)
[2016-10-19] MEDS: LACTOBACILLUS ACIDOPHILUS 1 GM PACK PO SCH ×3 (07:57→17:17)
[2016-10-19] MEDS: AMOXICILLIN/CLAVULANATE TAB 875 MG TAB PO SCH ×2 (07:57→17:16)
[2016-10-19] MEDS: IPRATROPIUM BROMIDE/ALBUTEROL respimat INH INH SCH ×4 (07:57→20:22)
[2016-10-19] MEDS: POT PHOSPHATE MONOBASIC W/ SOD TAB PO SCH ×4 (07:58→20:25)
[2016-10-19] MEDS: ISOSORBIDE MONONITRATE 60 MG TABCR PO SCH ×2 (07:58→20:23)
[2016-10-19] MEDS: DRONEDARONE 400 MG TAB PO SCH ×2 (07:58→20:25)
[2016-10-19] MEDS: ASPIRIN 81 MG ECTAB PO SCH (07:58)
[2016-10-19] MEDS: BECLOMETHASONE DIP HFA 80 MCG 8.7G INH INH SCH (07:58)
[2016-10-19] MEDS: METOPROLOL SUCC 50MG EXT REL TAB PO SCH ×2 (07:59→20:23)
[2016-10-19] MEDS: INSULIN HUMAN NPH SC SCH ×2 (08:03→17:25)
[2016-10-19] MEDS: HEPARIN SOD 5000 UNIT/0.5 ML CARP SQ SCH ×2 (08:04→20:22)
[2016-10-19] MEDS: ALPRAZOLAM 0.25 MG TAB PO PRN ×2 (08:11→20:29)
[2016-10-19] MEDS: HYDROCODONE/ACETAMOPHEN 5/325MG TAB PO PRN ×2 (08:12→20:29)
[2016-10-19] MEDS: RANOLAZINE 500 MG ER TAB PO SCH ×2 (12:02→20:24)
[2016-10-19] MEDS ORDERED: SULFAMETHOXAZOLE/TRIMETHOPRIM DS 800/160MG TAB PO ONE (14:30)
[2016-10-19 14:55] VITALS: BP 147/73; PULSE 59; TEMP 36.3; O2SAT 93
[2016-10-19 16:01] VITALS: O2SAT 93
[2016-10-19] MEDS: TAMSULOSIN HCL 0.4 MG CAP PO SCH (20:22)
[2016-10-19] MEDS: SIMVASTATIN 20 MG TAB PO SCH (20:24)
[2016-10-19] MEDS: SULFAMETHOXAZOLE/TRIMETHOPRIM DS 800/160MG TAB PO SCH (20:24)
[2016-10-19 22:25] VITALS: BP 153/74; PULSE 66; TEMP 36.7; O2SAT 93
--- NOTE | 2016-10-20 05:15 | Progress Note ---
Subjective Date of Service: late entry for visit on Oct 19, 2016. Subjective Pt evaluation today including: conversation w/ patient, physical exam, chart review, lab review Pain: right back absecss site - pain resolved PO Intake: eating regular diet Voiding: no voiding problems 2-3 stools today but last one was formed scant abdominal pain NOT worsened by eating back feels better walking the hallways w/o dyspnea no other complaints Problem List Medical Problems: (1) Acute bronchitis Status: Acute (2) Chest pain, precordial Status: Acute (3) Chronic anemia Status: Acute (4) Dizziness Status: Acute (5) Facial paresthesia Status: Acute (6) Lactic acidosis Status: Acute (7) Precordial chest pain Status: Acute (8) Precordial chest pain Status: Acute (9) SOB (shortness of breath) Status: Acute (10) Vomiting and diarrhea Status: Acute Review of Systems Constitutional: No fever Respiratory: No shortness of breath, No dyspnea on exertion Cardiac: No chest pain, No orthopnea Abdomen: + see HPI, + pain, No nausea, No vomiting, No GI bleeding Objective Vital Signs Date Time Temp Pulse Resp B/P (MAP) Pulse Ox O2 Delivery O2 Flow Rate FiO2 10/20/16 00:00 Room Air 10/19/16 22:25 36.7 66 20 153/74 (100) 93 Room Air 10/19/16 16:01 93 Room Air 10/19/16 14:55 36.3 59 18 147/73 (97) 93 Room Air 10/19/16 10:11 Room Air 10/19/16 07:17 36.4 60 18 152/80 (104) 93 Room Air Physical Exam General Appearance: no apparent distress ENT: pharynx normal Neck: no JVD Respiratory/Chest: lungs clear, no respiratory distress, no accessory muscle use Cardiovascular: regular rate, rhythm, no gallop, no murmur Abdomen: normal bowel sounds, non tender, soft, no organomegaly Extremities: no pedal edema Neurologic/Psychiatric: alert, oriented x 3 Skin: + pertinent finding (abscess, right mid back - marked improvement in small amount of cellulitis and the abscess cavity itself; scant amount of purulent material expressed from the abscess cavity) Laboratory Results Last 24 Hours Test 10/19/16 07:44 10/19/16 11:25 10/19/16 16:22 10/19/16 20:04 Bedside Glucose 84 mg/dl 131 mg/dl 89 mg/dl 123 mg/dl Test 10/20/16 04:44 Assessment and Plan 76yo male: 1. colitis - clinically improved/resolved Day #6 of abx today; plan 10 days in total. changed from IV abx to po augmentin today. C. diff and stool cx both negative. Suspect ischemic in nature. Considerable atherosclerotic disease on CT and thus ischemia is plausible. Last colonoscopy 05/2015 with numerous polyps removed only. Cont current diet. 2. skin abscess, right mid back - s/p I/D POD #1. Wound cx with GPC. add bactrim for MRSA coverage. clinically improved. I do not believe this was an infected sebaceous cyst. 3. CAD with h/o CABG - no ischemic symptoms at this time. 4. T2DM - reasonable control at this time with current insulin regimen. 5. hypokalemia - repeat BMP am. 6. HTN - controlled with current BP meds. 7. h/o a. flutter - on exam appears to be in NSR; EKG at admission also with NSR. Monitor. 8. hypophosphatemia - replacing, repeat level in am. Cleared by PT/OT for home d/c tomorrow Discharge planning: home
[2016-10-20] MEDS: LEVOTHYROXINE 100 MCG TAB PO SCH (06:13)
[2016-10-20 07:15] VITALS: BP 140/77; PULSE 60; TEMP 36.9; O2SAT 93
[2016-10-20 07:36] LABS: HEMATOCRIT 40.5 % (42-52); MEAN CELL VOLUME 92.3 fL (80-100); MEAN CORPUSCULAR HEMOGLOBIN 30.5 pg (25-34); MEAN CORPUSCULAR HGB CONC 33.1 g/dl (32-36); MEAN PLATELET VOLUME 9.5 fL (7.4-10.4); PLATELET COUNT 117 K/uL (130-400); RED BLOOD COUNT 4.39 M/uL (4.7-6.1); WHITE BLOOD COUNT 6.07 K/uL (4.8-10.8)
[2016-10-20] MEDS: AMOXICILLIN/CLAVULANATE TAB 875 MG TAB PO SCH (07:51)
[2016-10-20] MEDS: LACTOBACILLUS ACIDOPHILUS 1 GM PACK PO SCH ×2 (07:53→12:15)
[2016-10-20] MEDS: ASPIRIN 81 MG ECTAB PO SCH (07:54)
[2016-10-20] MEDS: POT PHOSPHATE MONOBASIC W/ SOD TAB PO SCH ×2 (07:55→12:17)
[2016-10-20] MEDS: SULFAMETHOXAZOLE/TRIMETHOPRIM DS 800/160MG TAB PO SCH (07:56)
[2016-10-20] MEDS: RANOLAZINE 500 MG ER TAB PO SCH (07:56)
[2016-10-20] MEDS: ISOSORBIDE MONONITRATE 60 MG TABCR PO SCH (07:57)
[2016-10-20] MEDS: DRONEDARONE 400 MG TAB PO SCH (07:57)
[2016-10-20] MEDS: METOPROLOL SUCC 50MG EXT REL TAB PO SCH (07:58)
[2016-10-20] MEDS: ALPRAZOLAM 0.25 MG TAB PO PRN (08:03)
[2016-10-20] MEDS: HYDROCODONE/ACETAMOPHEN 5/325MG TAB PO PRN (08:04)
[2016-10-20] MEDS: BECLOMETHASONE DIP HFA 80 MCG 8.7G INH INH SCH (08:05)
[2016-10-20] MEDS: IPRATROPIUM BROMIDE/ALBUTEROL respimat INH INH SCH ×2 (08:05→12:15)
[2016-10-20] MEDS: INSULIN HUMAN NPH SC SCH (08:07)
[2016-10-20] MEDS: HEPARIN SOD 5000 UNIT/0.5 ML CARP SQ SCH (08:08)
[2016-10-20] MEDS: INSULIN ASPART 100 UNITS/ML 3 ML PEN SC SCH ×2 (08:08→12:20)
[2016-10-20 08:09] LABS: BUN/CREATININE RATIO 8.2 (10-20); CALCIUM 8.4 mg/dl (8.5-10.1); CREATININE 0.98 mg/dl (0.60-1.40); PHOSPHORUS 2.4 mg/dl (2.5-4.9); POTASSIUM 3.7 mmol/L (3.5-5.1)
[2016-10-20 14:33] VITALS: BP 140/77; PULSE 60; TEMP 36.9; O2SAT 93
[2016-10-20 14:51] VITALS: BP 168/78; PULSE 78; TEMP 36.4; O2SAT 94
[2016-10-20] MEDS ORDERED: AMOX1TAB43 PO (15:38)
[2016-10-20] MEDS ORDERED: INSU1INJ23 SC ×2 (15:38)
[2016-10-20] MEDS ORDERED: LACTCHW3 PO (15:38)
[2016-10-20] MEDS ORDERED: SULF-183 PO (15:38)
--- NOTE | 2016-10-20 15:44 | Discharge Instructions ---
Discharge Instructions Date of Service Oct 20, 2016. Admission Reason for Admission: Colitis Discharge Discharge Diagnosis / Problem: colitis - resolved; skin abscess of back - resolving Discharge Goals Goal(s): Learn about illness, Diagnostic testing, Therapeutic intervention Activity Recommendations Activity Limitations: resume your previous activity . Instructions / Follow-Up Instructions / Follow-Up From Dr. Martin - 1. Antibiotics - Please take as follows: * bactrim (sulfa drug) 1 pill twice daily for 8 more days; begin this TONIGHT * augmentin (amoxicillin-clavulanate) 1 pill twice daily for 3 more days; begin this TONIGHT * lactinex 3 chewable tablets three times a day for 7 days; begin this TONIGHT ( these help prevent diarrhea) 2. Diet - * please avoid high fiber foods for the next 7 days * high fiber foods include certain cereals, oatmeal, excessive amounts of fruits & veggies, beans, etc 3. Diabetes - * During your stay you did not require large amounts of insulin * Please lower your morning insulin to 20 units and your evening insulin to 40 units * we can always go back up if your sugars rise * you can resume your metformin at this time 4. A home health nurse will come to your house on Sunday to recheck your dressing on your back. Please leave the dressing on until that time. Keep it clean and dry. If it comes off by accident before Sunday simply call the [facility] to come and replace the dressing. 5. See your family doctor this Sunday as scheduled. 6. I would recommend seeing a GI physician in the next few weeks. They may want to perform a colonoscopy on you in the future. 7. Return to [facility] if - * fever over 100.5 degrees * worsening abdominal pain * worsening diarrhea * blood in your stool * worsening drainage from the back abscess Current Hospital Diet Patient's current hospital diet: Diabetes Type 2 Diet Discharge Diet Recommended Diet: Diabetes Type 2 Diet, Low Fiber Diet Procedures Procedures Performed: CAT scan of abdomen showing colitis (inflammation of colon) drainage of skin abscess of back Pending Studies Studies pending at discharge: no Laboratory Results Hemoglobin A1c Test 09/05/16 10:02 Range/Units Estimated Average Glucose 140 mg/dl Hemoglobin A1c 6.5 H 4.5-5.6 % Medical Emergencies . Who to Call and When: Medical Emergencies: If at any time you feel your situation is an emergency, please call 911 immediately. . Non-Emergent Contact Non-Emergency issues call your: Primary Care Provider Call Non-Emergent contact if: temperature is above 100.5, your pain is not controlled, your pain is worsening, your pain is unusual for you, your pain is concerning you, wound has increased drainage, wound has increased redness, wound has increased pain, you have any medication questions . . "Provider Documentation" section prepared by Deven Martin. . VTE Core Measure Inpt VTE Proph given/why not?: Unfractionated heparin SQ
--- NOTE | 2016-10-23 10:30 | Discharge Summary ---
Discharge Summary Date of Service Oct 23, 2016. Discharge Summary Admission Date: Oct 14, 2016 at 15:29 Discharge Date: Oct 20, 2016 Discharge Disposition: Home with services Principal Diagnosis: colitis, suspected ischemic Problems/Secondary Diagnoses: 1. skin abscess of back s/p I & D 2. CAD with h/o CABG 3. T2DM 4. hypokalemia - resolved 5. HTN 6. h/o a. flutter 7. hypophosphatemia Immunizations: Have You Had Influenza Vaccine: Yes Influenza Vaccine Date: Dec 26, 2014 History of Tetanus Vaccine?: Unknown History of Pneumococcal: Yes Pneumococcal Date: Dec 26, 2014 History of Hepatitis B Vaccine: Unknown Procedures: 1. CT abd/pelvis: IMPRESSION: 1. Apparent mild long segment colonic wall thickening. This is likely due to underdistention although a nonspecific colitis could appear similar. 2. Fatty liver. 3. Moderate distention of the bladder. Moderate enlargement of the prostate. No hydronephrosis. 4. Ectatic infrarenal abdominal aorta, measuring 2.8 cm. Extensive atherosclerotic plaque of the abdominal aorta and major mesenteric vessels. Proximal major mesenteric vessels patent. 2. Incision & drainage of skin abscess of back - cultures with coag neg staph Consultations: PT, OT Medication Reconciliation New Medications: Lactobacillus (Lactinex) Chw 3 TAB PO TID for 7 Days, #70 CHW 0 Refills Amoxicillin & Pot Clavulanate (Amoxicillin/Clavulanate P) 1 Tab Tab 875 MG PO BIDM for 3 Days, #6 TAB 0 Refills Sulfamethoxazole-Trimethoprim (Smz-Tmp Ds) 1 Tab Tab 1 TAB PO Q12 for 8 Days, #16 TAB 0 Refills Changed Medications: Insulin Isophane (Human) (Humulin N Kwikpen) 100 Unit/Ml Inj 20 UNITS SC QAM, #1 (Changed from: 30 UNITS) Insulin Isophane (Human) (Humulin N Kwikpen) 100 Unit/Ml Inj 40 UNITS SC QPM, #1 (Changed from: 55 UNITS) Continued Medications: Alprazolam (Alprazolam) 0.25 Mg Tab 0.25 MG PO TID PRN for Anxiety Aspirin (Aspirin Ec) 81 Mg Tab 81 MG PO QAM Beclomethasone Dip (Qvar) 80 Mcg/Act Aer 40 MCG INH DAILY Dronedarone (Multaq) 400 Mg Tab 400 MG PO BID Furosemide (Lasix) 40 Mg Tab 40 MG PO DAILY, TAB Hydrocodone/Acetaminophen 5MG/325MG ([place] 5MG/325MG) Tab 1 TABLET PO Q12 PRN for Pain, TAB Ipratropium-Albuterol (Combivent Respimat) 1 Aer Aer 1 PUFFS INH QID Isosorbide Mononitrate Ext Rel (Imdur Ext Rel) 120 Mg Ertab 120 MG PO BID Levothyroxine Sodium (Levothyroxine Sodium) 100 Mcg Tab 100 MCG PO DAILY Metformin HCl (Metformin HCl) 500 Mg Tab 1000 MG PO BID TAKE THIS MEDICATION WITH BREAKFAST AND EVENING MEAL Metoprolol Succinate (Metoprolol Succinate ER) 100 Mg Tabcr 100 MG PO BID Multiple Vitamins W/ Minerals (Multi Complete) 1 Cap Cap 1 TAB PO QPM Nitroglycerin (Nitrostat) 0.4 Mg Tab 0.4 MG UT UD PRN for Chest Pain, BTL PLACE ONE TABLET UNDER THE TONGUE EVERY 5 MINUTES FOR UP TO 3 DOSES IF NEEDED FOR CHEST PAIN Potassium Chloride Microencaps (Potassium Chloride Er) 10 Meq Tab 10 MEQ PO BID Ranolazine (Ranexa) 500 Mg Tab 500 MG PO Q12 Simvastatin (Simvastatin) 20 Mg Tab 20 MG PO HS Tamsulosin HCl (Tamsulosin HCl) 0.4 Mg Cap 0.4 MG PO HS Discharge Exam Physical Exam: General Appearance: no apparent distress ENT: pharynx normal Neck: no JVD Respiratory/Chest: lungs clear, no respiratory distress, no accessory muscle use Cardiovascular: regular rate, rhythm, no gallop, no murmur, normal peripheral pulses Abdomen / GI: normal bowel sounds, non tender, soft, no organomegaly Extremities: no pedal edema Neurologic/Psychiatric: alert, oriented x 3 Skin: + pertinent finding (skin abscess, right mid back - markedly improved ; surrounding cellulitis resolved; minimal purulent material present) Hospital Course HISTORY OF PRESENT ILLNESS: The patient is a 76-year-old gentleman with a past medical history of coronary artery disease status post CABG x2, multiple PCIs, diabetes mellitus insulin requiring, hypertension, carotid artery stenosis status post carotid endarterectomy, dyslipidemia, atrial flutter and morbid obesity. The patient was in his regular state of health until 2 days ago when he started developing diarrhea with dark stools and nausea/vomiting. The patient denies any blood in the stool or in the vomit and he was not able to confirm if he had black stools or melena. The patient went to the bathroom 5-6 times every day since 2 days ago until today he decided to come to the ED for further evaluation and management. Admits to some abdominal crampy mild contractions with the diarrhea and the vomiting. HOSPITAL COURSE: The patient's colitis was felt to be ischemic in nature as his stool culture was negative as was c. diff toxin. CT abd/pelvis demonstrated significant atherosclerosis of his intra-abdominal vessels. He was treated with IVF, IV antibiotics (zosyn), and bowel rest. With conservative treatment his GI symptoms improve and prior to discharge his stools started to normalize. He never had samantha rectal bleeding during his stay. He will complete a course of augmentin after discharge for the colitis. Last colonoscopy was 05/2015 per records with numerous polyps removed at that time. He was advised to follow-up with [facility] after discharge. An appointment was scheduled with Dr. Mark Le later in October. He was counseled on his diet at time of discharge. His course was complicated by he development of a superficial skin abscess on his right mid-back. This was incised and drained at the bedside. Wound culture grew 2 strains of coag negative staph. He had a minimal amount of surrounding cellulitis that resolved before discharge and the abscess itself improved very nicely. He will be treated with a course of oral bactrim after discharge, home health has been set up to monitor the abscess site and provide dressing changes, and he was advised to see his PCP's office within 3 days to have the area rechecked. All other medical problems, vitals, and labs remained stable during his stay. Of note - the patient required a considerable amount of LESS insulin during his stay than what he typically takes at home. His home insulin doses were decreased at discharge. He was advised to check his blood sugars frequently and report these to his PCP in the event further adjustments are needed. Total Time Spent: Greater than 30 minutes This includes examination of the patient, discharge planning, medication reconciliation, and communication with other providers. Discharge Instructions Please refer to the electronic Patient Visit Report (Discharge Instructions) for additional information. Follow-Up 1. Liza Barrera PA-C on SundayOctober 23 at 10:00 am 2. [facility] with Dr. Le on SundayNovember 13 at 12:45 pm Additional Copies To RV. Ewing MD; Liza Barrera PA-C; Mark Le M.D.
[2016-11-21] MEDS ORDERED: ASPCH81X PO (08:25)
[2016-11-21] MEDS ORDERED: VNTHFA/IN INH (08:25)
== END 2016-10-20 16:38 | disposition home health service (06) | DRG 392 ==
LOC: C.EDB 08:47 → C.2E 15:29 → ENRESERV 15:37 → C.MS2W 10-15 11:16 → ENRESERV 10-15 11:44
PROVIDERS: ADMIT Internal Medicine; ATTEND Internal Medicine
PROC: 0H96X0Z Drainage of Back Skin with Drainage Device, External Approach (ICD-10-PCS; principal; 2016-10-18)
DX: K52.9 Noninfective gastroenteritis and colitis, unspecified (principal); L02.212 Cutaneous abscess of back [any part, except buttock and flank]; I25.10 Atherosclerotic heart disease of native coronary artery without angina pectoris; I10 Essential (primary) hypertension; Z95.1 Presence of aortocoronary bypass graft; Z79.4 Long term (current) use of insulin; E78.5 Hyperlipidemia, unspecified; E66.01 Morbid (severe) obesity due to excess calories; Z68.30 Body mass index [BMI] 30.0-30.9, adult; E03.9 Hypothyroidism, unspecified; E87.6 Hypokalemia; E83.39 Other disorders of phosphorus metabolism; Z79.82 Long term (current) use of aspirin; Z79.899 Other long term (current) drug therapy; Z83.3 Family history of diabetes mellitus; Z82.49 Family history of ischemic heart disease and other diseases of the circulatory system; Z82.3 Family history of stroke; Z83.79 Family history of other diseases of the digestive system

== ENCOUNTER → 2016-11-16 | Outpatient (CLI) | payer OTHER ==
[~2016-11-16] MED LIST changes: +AMOX1TAB43 PO; +ASPCH81X PO; +FURO40TA3 PO; +LACTCHW3 PO; -LSX20 PO; +QVRINH80 INH; +SULF-183 PO; +VNTHFA/IN INH
--- NOTE | 2016-11-16 10:19 | DIAGNOSTIC IMAGING REPORT ---
RIGHT KNEE RADIOGRAPHS WITH COMPARISON STANDING AP RADIOGRAPH OF THE LEFT KNEE CLINICAL HISTORY: Right knee pain. Osteoarthritis. COMPARISON: None FINDINGS: Comparison standing AP radiograph of the left knee demonstrates no fracture or osseous lesion. Medial and lateral joint spaces are preserved. There is moderate vascular calcification. Alignment of the right knee is anatomic. There is no fracture or joint effusion. There is no suspicious osseous lesion. This narrowing of the superior and inferior poles of the patella are noted. Joint spaces are preserved. There is minimal osteophytosis of the right knee. IMPRESSION: 1. No acute fracture or joint effusion of the right knee. 2. Preserved right knee joint spaces with mild osteophytosis within the patellofemoral compartment. 3. Superior and inferior patellar spurring. Electronically signed by: Lane Treviño M.D. 11/16/2016 10:18 AM Dictated Date/Time: 11/16/2016 10:16 AM
--- NOTE | 2016-11-16 10:35 | DIAGNOSTIC IMAGING REPORT ---
PELVIS BILATERAL HIP 2 CLINICAL HISTORY: BILATERAL HIP PAIN COMPARISON STUDY: Pelvis and bilateral hips 11/08/2015. FINDINGS: No fracture or dislocation within the pelvis or hips. Vascular calcifications are present. Mild degenerative changes within the bilateral sacroiliac joints and symphysis pubis. Prior right inguinal hernia repair. Mild cartilage space narrowing within the bilateral hips with small marginal osteophytes at the acetabula. This is consistent with mild degenerative change. IMPRESSION: 1. No significant change compared to the prior study. No fracture or dislocation within the pelvis or hips. 2. Mild bilateral hip osteoarthritis. Electronically signed by: Gagan Guzmán M.D. 11/16/2016 10:34 AM Dictated Date/Time: 11/16/2016 10:32 AM
== END | disposition home or self-care (01) ==
LOC: C.RDSM 11:22
PROVIDERS: ATTEND Physician Assistant
DX: M25.551 Pain in right hip (principal); M25.552 Pain in left hip; M17.11 Unilateral primary osteoarthritis, right knee; M76.891 Other specified enthesopathies of right lower limb, excluding foot

== ENCOUNTER → 2016-11-29 | Day surgery (SDC) | payer OTHER ==
[2016-11-21 08:29] VITALS: BMI 29.0
[~2016-11-29] VITALS: Ht 172.7 cm; Wt 88.6 kg
[~2016-11-29] MED LIST changes: -AMOX1TAB43 PO; -ASPI81TA28 PO; -LACTCHW3 PO; +PROPOFOL IV EMULSION 10 MG/ML 20 ML VIAL IV ONE; +SODIUM CHLORIDE 0.9% 500ML 500 ML IV ONE; -SULF-183 PO
[2016-11-29 12:46] VITALS: Ht 172.7 cm; Wt 88.6 kg
[2016-11-29 13:01] VITALS: TEMP 36.6
--- NOTE | 2016-11-29 13:21 | Endo History and Physical ---
History & Physical Date of Service: Nov 29, 2016. Chief Complaint: DIARRHEA, ABN CT OF COLON Referring Physician: DR. VIDHI NOGUEIRA History of Present Illness chronic diarrhea, abnormal CT Past Medical History Arthritis, Sleep Apnea, Heart Disease, Hypertension, Thyroid Disease, MD Past Surgical History Hx Cardiac Surgery: Yes (MULTIPLE HEART CATH-TOTAL 7 STENTS, CABG-2 VESSELS, LEFT CAROTID ENDART.) Hx Internal Defibrillator: No Hx Pacemaker: No Hx Abdominal Surgery: Yes (INGUINAL HERNIA) Hx of Implantable Prosthesis: No Hx Post-Op Nausea and Vomiting: No Hx Cancer Surgery: No Hx Thoracic Surgery: No Hx Orthopedic: Yes (LUMBAR LAMINECTOMY, LEFT KNEE ARTHROSCOPY) Hx Urinary Tract Surgery: No Family History None Social History Smoking Status: Former Smoker Hx Substance Use: No Hx Alcohol Use: Yes (OCCASIONALLY) Allergies Coded Allergies: No Known Allergies (Verified , 11/21/16) Current Medications Reported Home Medications Medications Dose Route/Sig Max Daily Dose Days Date Category Dose Instructions Ventolin Hfa (Albuterol) 200 Puffs/55620 Mcg Aers 2-4 Puffs INH Q6H PRN 11/21/16 Reported Aspirin Chewable (Aspirin) 81 Mg Chew 81 Mg PO QPM 11/21/16 Reported Humulin N Kwikpen (Insulin Isophane (Human)) 100 Unit/Ml Inj 40 Units SC QPM 10/20/16 Rx Humulin N Kwikpen (Insulin Isophane (Human)) 100 Unit/Ml Inj 20 Units SC QAM 10/20/16 Rx Qvar (Beclomethasone Dip) 80 Mcg/Act Aer 40 Mcg INH QAM 10/14/16 Reported Lasix (Furosemide) 40 Mg Tab 40 Mg PO QAM 10/14/16 Reported Combivent Respimat (Ipratropium-Albuterol) 1 Aer Aer 1 Puffs INH QID 06/21/16 Reported Potassium Chloride Er (Potassium Chloride Microencaps) 10 Meq Tab 10 Meq PO BID 11/01/15 Reported Alprazolam 0.25 Mg Tab 0.25 Mg PO TID PRN 11/01/15 Reported Tamsulosin HCl 0.4 Mg Cap 0.4 Mg PO HS 11/01/15 Reported Simvastatin 20 Mg Tab 20 Mg PO HS 11/01/15 Reported Multaq (Dronedarone) 400 Mg Tab 400 Mg PO BID 11/01/15 Reported Metoprolol Succinate ER (Metoprolol Succinate) 100 Mg Tabcr 100 Mg PO BID 11/01/15 Reported Ranexa (Ranolazine) 500 Mg Tab 500 Mg PO Q12 11/01/15 Reported Imdur Ext Rel (Isosorbide Mononitrate) 120 Mg Ertab 120 Mg PO BID 11/01/15 Reported Metformin HCl 500 Mg Tab 1,000 Mg PO BID 11/01/15 Reported TAKE THIS MEDICATION WITH BREAKFAST AND EVENING MEAL [place] 5MG/325MG (Acetaminophen/Hydrocodone Bitart) Tab 1 Tablet PO Q12 PRN 05/12/15 Reported Levothyroxine Sodium 100 Mcg Tab 100 Mcg PO QAM 02/26/15 Reported Multi Complete (Multiple Vitamins W/ Minerals) 1 Cap Cap 1 Tab PO QPM 07/15/13 Reported Nitrostat (Nitroglycerin) 0.4 Mg Tab 0.4 Mg UT UD PRN 07/01/[address] ONE TABLET UNDER THE TONGUE EVERY 5 MINUTES FOR UP TO 3 DOSES IF NEEDED FOR CHEST PAIN Vital Signs Weight (Kilograms): 88.64 Height (Feet): 5 Height (Inches): 8 Date Time Temp Pulse Resp B/P (MAP) Pulse Ox O2 Delivery O2 Flow Rate FiO2 11/29/16 13:01 36.6 54 20 156/75 (102) 96 Room Air Physical Exam AAOx3 Nls1s2 Lungs CTA Abd soft NT/ND + BS - CCE Assessment and Plan Colon for diarrhea with bx
--- NOTE | 2016-11-29 14:20 | GI REPORT ---
Procedure Date: 11/29/2016 1:37 PM Procedure: Colonoscopy Indications: Chronic diarrhea, Abnormal CT of the GI tract Medicines: Propofol per Anesthesia Complications: No immediate complications. Estimated blood loss: Minimal. Estimated Blood Loss: Estimated blood loss was minimal. Procedure: Pre-Anesthesia Assessment: - Prior to the procedure, a History and Physical was performed, and patient medications and allergies were reviewed. The patient's tolerance of previous anesthesia was also reviewed. The risks and benefits of the procedure and the sedation options and risks were discussed with the patient. All questions were answered, and informed consent was obtained. Prior Anticoagulants: The patient has taken aspirin, last dose was 1 day prior to procedure. ASA Grade Assessment: III - A patient with severe systemic disease. After reviewing the risks and benefits, the patient was deemed in satisfactory condition to undergo the procedure. After I obtained informed consent, the scope was passed under direct vision. Throughout the procedure, the patient's blood pressure, pulse, and oxygen saturations were monitored continuously. The Scope was introduced through the anus and advanced to the terminal ileum, with identification of the appendiceal orifice and IC valve. The colonoscopy was performed without difficulty. The patient tolerated the procedure well. The quality of the bowel preparation was good. Findings: The perianal and digital rectal examinations were normal. Pertinent negatives include normal sphincter tone, no palpable rectal lesions and no anal lesion or abnormality was detected. A 3 mm polyp was found in the ascending colon. The polyp was sessile. The polyp was removed with a cold biopsy forceps. Resection and retrieval were complete. Estimated blood loss was minimal. Verification of patient identification for the specimen was done by the physician and manufacturing plant technician using the patient's name and medical record number. A 2 mm polyp was found in the rectum. The polyp was sessile. The polyp was removed with a cold biopsy forceps. Resection and retrieval were complete. Estimated blood loss was minimal. Verification of patient identification for the specimen was done by the physician and manufacturing plant technician using the patient's name and medical record number. The terminal ileum appeared normal. Biopsies were taken with a cold forceps for histology. Estimated blood loss was minimal. Verification of patient identification for the specimen was done by the physician and manufacturing plant technician using the patient's name and medical record number. The rectum, descending colon and ascending colon appeared normal. Biopsies for histology were taken with a cold forceps from the ascending colon, descending colon and rectum for evaluation of microscopic colitis. Estimated blood loss was minimal. Verification of patient identification for the specimen was done by the physician and manufacturing plant technician using the patient's name and medical record number. Many small-mouthed diverticula were found in the sigmoid colon. The retroflexed view of the distal rectum and anal verge was normal and showed no anal or rectal abnormalities. Impression: - One 3 mm polyp in the ascending colon, removed with a cold biopsy forceps. Resected and retrieved. - One 2 mm polyp in the rectum, removed with a cold biopsy forceps. Resected and retrieved. - The examined portion of the ileum was normal. Biopsied. - The rectum, descending colon and ascending colon are normal. Biopsied. - Diverticulosis in the sigmoid colon. - The distal rectum and anal verge are normal on retroflexion view. Recommendation: - Discharge patient to home (ambulatory). - Resume regular diet. - Continue present medications. - Await pathology results. - Return to GI clinic as previously scheduled. MD Mark Paula MD 11/29/2016 2:19:39 PM This report has been signed electronically. Note Initiated On: 11/29/2016 1:37 PM I attest to the content of the Intraoperative Record and orders documented therein, exceptions below
--- NOTE | 2016-11-29 14:20 | Discharge Instructions ---
Endoscopy Patient Instructions Date / Procedure(s) Performed Nov 29, 2016. Colonoscopy Allergy Information Coded Allergies: No Known Allergies (Verified , 11/21/16) Discharge Date / Findings Nov 29, 2016. small polyps, sig diverticulosis; no colitis identified bx taken Medication Instructions Stopped Medication(s): METFORMAN, POTASSIUM Restart Stopped Medication(s): Reported Home Medications Medications Dose Route/Sig Max Daily Dose Days Date Category Dose Instructions Ventolin Hfa (Albuterol) 200 Puffs/96460 Mcg Aers 2-4 Puffs INH Q6H PRN 11/21/16 Reported Aspirin Chewable (Aspirin) 81 Mg Chew 81 Mg PO QPM 11/21/16 Reported Humulin N Kwikpen (Insulin Isophane (Human)) 100 Unit/Ml Inj 40 Units SC QPM 10/20/16 Rx Humulin N Kwikpen (Insulin Isophane (Human)) 100 Unit/Ml Inj 20 Units SC QAM 10/20/16 Rx Qvar (Beclomethasone Dip) 80 Mcg/Act Aer 40 Mcg INH QAM 10/14/16 Reported Lasix (Furosemide) 40 Mg Tab 40 Mg PO QAM 10/14/16 Reported Combivent Respimat (Ipratropium-Albuterol) 1 Aer Aer 1 Puffs INH QID 06/21/16 Reported Potassium Chloride Er (Potassium Chloride Microencaps) 10 Meq Tab 10 Meq PO BID 11/01/15 Reported Alprazolam 0.25 Mg Tab 0.25 Mg PO TID PRN 11/01/15 Reported Tamsulosin HCl 0.4 Mg Cap 0.4 Mg PO HS 11/01/15 Reported Simvastatin 20 Mg Tab 20 Mg PO HS 11/01/15 Reported Multaq (Dronedarone) 400 Mg Tab 400 Mg PO BID 11/01/15 Reported Metoprolol Succinate ER (Metoprolol Succinate) 100 Mg Tabcr 100 Mg PO BID 11/01/15 Reported Ranexa (Ranolazine) 500 Mg Tab 500 Mg PO Q12 11/01/15 Reported Imdur Ext Rel (Isosorbide Mononitrate) 120 Mg Ertab 120 Mg PO BID 11/01/15 Reported Metformin HCl 500 Mg Tab 1,000 Mg PO BID 11/01/15 Reported TAKE THIS MEDICATION WITH BREAKFAST AND EVENING MEAL [place] 5MG/325MG (Acetaminophen/Hydrocodone Bitart) Tab 1 Tablet PO Q12 PRN 05/12/15 Reported Levothyroxine Sodium 100 Mcg Tab 100 Mcg PO QAM 02/26/15 Reported Multi Complete (Multiple Vitamins W/ Minerals) 1 Cap Cap 1 Tab PO QPM 07/15/13 Reported Nitrostat (Nitroglycerin) 0.4 Mg Tab 0.4 Mg UT UD PRN 07/01/[address] ONE TABLET UNDER THE TONGUE EVERY 5 MINUTES FOR UP TO 3 DOSES IF NEEDED FOR CHEST PAIN Reported Home Medications Medications Dose Route/Sig Max Daily Dose Days Date Category Dose Instructions Ventolin Hfa (Albuterol) 200 Puffs/89806 Mcg Aers 2-4 Puffs INH Q6H PRN 11/21/16 Reported Aspirin Chewable (Aspirin) 81 Mg Chew 81 Mg PO QPM 11/21/16 Reported Humulin N Kwikpen (Insulin Isophane (Human)) 100 Unit/Ml Inj 40 Units SC QPM 10/20/16 Rx Humulin N Kwikpen (Insulin Isophane (Human)) 100 Unit/Ml Inj 20 Units SC QAM 10/20/16 Rx Qvar (Beclomethasone Dip) 80 Mcg/Act Aer 40 Mcg INH QAM 10/14/16 Reported Lasix (Furosemide) 40 Mg Tab 40 Mg PO QAM 10/14/16 Reported Combivent Respimat (Ipratropium-Albuterol) 1 Aer Aer 1 Puffs INH QID 06/21/16 Reported Potassium Chloride Er (Potassium Chloride Microencaps) 10 Meq Tab 10 Meq PO BID 11/01/15 Reported Alprazolam 0.25 Mg Tab 0.25 Mg PO TID PRN 11/01/15 Reported Tamsulosin HCl 0.4 Mg Cap 0.4 Mg PO HS 11/01/15 Reported Simvastatin 20 Mg Tab 20 Mg PO HS 11/01/15 Reported Multaq (Dronedarone) 400 Mg Tab 400 Mg PO BID 11/01/15 Reported Metoprolol Succinate ER (Metoprolol Succinate) 100 Mg Tabcr 100 Mg PO BID 11/01/15 Reported Ranexa (Ranolazine) 500 Mg Tab 500 Mg PO Q12 11/01/15 Reported Imdur Ext Rel (Isosorbide Mononitrate) 120 Mg Ertab 120 Mg PO BID 11/01/15 Reported Metformin HCl 500 Mg Tab 1,000 Mg PO BID 11/01/15 Reported TAKE THIS MEDICATION WITH BREAKFAST AND EVENING MEAL [place] 5MG/325MG (Acetaminophen/Hydrocodone Bitart) Tab 1 Tablet PO Q12 PRN 05/12/15 Reported Levothyroxine Sodium 100 Mcg Tab 100 Mcg PO QAM 02/26/15 Reported Multi Complete (Multiple Vitamins W/ Minerals) 1 Cap Cap 1 Tab PO QPM 07/15/13 Reported Nitrostat (Nitroglycerin) 0.4 Mg Tab 0.4 Mg UT UD PRN 07/01/[address] ONE TABLET UNDER THE TONGUE EVERY 5 MINUTES FOR UP TO 3 DOSES IF NEEDED FOR CHEST PAIN Provider Instructions Activity Restrictions - No exercising or heavy lifting for 24 hours. - Do not drink alcohol the day of the procedure. - Do not drive a car or operate machinery until the day after the procedure. - Do not make any important decisions or sign important papers in 24 hours after the procedure. Following Day: - Return to full activity which may include returning to work/school. Diet Start your diet with liquids and light foods (jello, soup, juice, toast). Then eat your usual diet if not nauseated. Treatment For Common After Affects For mild abdominal pain, bloating, or excessive gas: - Rest - Eat lightly - Lie on right side Follow-Up Information Follow-up with DR. VIDHI NOGUEIRA as scheduled Anesthesia Information What You Should Know You have had a procedure that required some medicine to reduce anxiety and discomfort. This treatment is called moderate sedation. After receiving the treatment, you may be sleepy, but you will be able to breathe on your own. The effects of the treatment may last for several hours. Follow these instructions along with Activity/Diet recommendations noted above: * Do NOT do anything where dizziness or clumsiness would be dangerous. * Rest quietly at home today, then you can be up and about tomorrow. * Have a responsible person stay with you the rest of today. * You may have had an I.V. today. If so, you may take the dressing off later today. Recommendations Call your doctor if: * Trouble breathing * Continuous vomiting for more than 24 hours * Temperature above 101 degrees * Severe abdominal pain or bloating * Pain not relieved by pain medicine ordered * There is increased drainage or redness from any incision * A large amount of rectal bleeding greater than 2-3 tablespoons. (If you had a polyp/s removed or have hemorrhoids, a small amount of blood - from the rectum is to be expected.) * You have any unanswered questions or concerns. IN THE EVENT OF A SERIOUS EMERGENCY, GO TO THE NEAREST EMERGENCY ROOM Your discharge instructions were prepared by provider Mark Le. Patient Instructions Signature Page Sean Alfonso Patient (or Guardian) Signature/Date: I have read and understand the instructions given to me by my caregivers. Caregiver/RN/Doctor Signature/Date: The above-named patient and/or guardian has received patient instructions on this date. + Original Patient Signature Page (only) stays with chart. Please make copy for patient.
--- NOTE | 2016-11-29 14:30 | Anesthesiology Progress Note ---
Anesthesia Post Op Note Date & Time Nov 29, 2016 at 14:30 Vital Signs Pain Intensity: 0 Vital Signs Past 12 Hours Date Time Temp Pulse Resp B/P (MAP) Pulse Ox O2 Delivery O2 Flow Rate FiO2 11/29/16 14:27 67 20 153/63 (93) 96 11/29/16 14:21 68 20 128/60 (82) 95 Room Air 11/29/16 13:01 36.6 54 20 156/75 (102) 96 Room Air Notes Mental Status: alert / awake / arousable, participated in evaluation Pt Amnestic to Procedure: Yes Nausea / Vomiting: adequately controlled Pain: adequately controlled Airway Patency, RR, SpO2: stable & adequate BP & HR: stable & adequate Hydration State: stable & adequate Anesthetic Complications: no major complications apparent
[2016-11-29 14:41] VITALS: BP 157/73; PULSE 69; O2SAT 93
== END | disposition home or self-care (01) ==
LOC: C.GI 12:11
PROVIDERS: ATTEND Internal Medicine Gastroenterology
DX: R19.7 Diarrhea, unspecified (principal); D12.2 Benign neoplasm of ascending colon; D12.8 Benign neoplasm of rectum; M19.90 Unspecified osteoarthritis, unspecified site; G47.30 Sleep apnea, unspecified; I51.9 Heart disease, unspecified; I10 Essential (primary) hypertension; I25.2 Old myocardial infarction; Z87.891 Personal history of nicotine dependence; Z95.1 Presence of aortocoronary bypass graft

== ENCOUNTER → 2017-02-22 | Outpatient (CLI) | payer OTHER ==
[~2017-02-22] MED LIST changes: -PROPOFOL IV EMULSION 10 MG/ML 20 ML VIAL IV ONE; -SODIUM CHLORIDE 0.9% 500ML 500 ML IV ONE
[2017-02-22 14:58] LABS: HEMATOCRIT 43.8 % (42-52); MEAN CELL VOLUME 95.2 fL (80-100); MEAN CORPUSCULAR HEMOGLOBIN 32.2 pg (25-34); MEAN CORPUSCULAR HGB CONC 33.8 g/dl (32-36); MEAN PLATELET VOLUME 9.9 fL (7.4-10.4); PLATELET COUNT 169 K/uL (130-400); WHITE BLOOD COUNT 9.48 K/uL (4.8-10.8)
[2017-02-22 15:04] LABS: ALT/SGPT 50 U/L (12-78); AST/SGOT 29 U/L (15-37); BLOOD UREA NITROGEN 12 mg/dl (7-18); BUN/CREATININE RATIO 10.6 (10-20); CALCIUM 9.5 mg/dl (8.5-10.1); CARBON DIOXIDE 30 mmol/L (21-32); CHLORIDE 98 mmol/L (98-107); GLUCOSE 176 mg/dl (70-99); POTASSIUM 3.9 mmol/L (3.5-5.1); SODIUM 135 mmol/L (136-145)
[2017-02-22 15:13] LABS: CREATININE RANDOM URINE 25.9 mg/dl
[2017-02-22 15:14] LABS: CHOLESTEROL 124 mg/dl (0-200); CHOLESTEROL/HDL RATIO 3.2; HDL CHOLESTEROL 39 mg/dl; LDL CHOLESTEROL CALCULATED 45 mg/dl; TRIGLYCERIDES 200 mg/dl (0-150); VERY LOW DENSITY LIPOPROT CALC 40 mg/dl
[2017-02-23 06:31] LABS: ESTIMATED AVERAGE GLUCOSE 163 mg/dl; HA1C FLAG Normal (Normal)
== END | disposition home or self-care (01) ==
LOC: C.LAB1850 13:11
PROVIDERS: ATTEND Nurse Practitioner Family
DX: I25.10 Atherosclerotic heart disease of native coronary artery without angina pectoris (principal); I11.0 Hypertensive heart disease with heart failure; I48.92 Unspecified atrial flutter; I42.9 Cardiomyopathy, unspecified; I50.22 Chronic systolic (congestive) heart failure; E55.9 Vitamin D deficiency, unspecified; E03.9 Hypothyroidism, unspecified; E11.29 Type 2 diabetes mellitus with other diabetic kidney complication

== ENCOUNTER 2017-03-29 14:16 | Observation (INO) | payer OTHER ==
[~2017-03-29] VITALS: Ht 172.7 cm; Wt 91.4 kg
[2017-03-29 15:08] LABS: BASO % 0.3 %; BASO ABS # 0.02 K/uL (0-0.2); EOS % 4.4 %; EOS ABS # 0.28 K/uL (0-0.5); HEMATOCRIT 42.3 % (42-52); HEMOGLOBIN 14.7 g/dL (14.0-18.0); IG# 0.02 K/uL (0.00-0.02); LYMPH % 36.5 %; LYMPH ABS # 2.34 K/uL (1.2-3.4); MEAN CORPUSCULAR HEMOGLOBIN 32.7 pg (25-34); MEAN CORPUSCULAR HGB CONC 34.8 g/dl (32-36); MEAN PLATELET VOLUME 10.1 fL (7.4-10.4); MONO % 9.5 %; MONO ABS # 0.61 K/uL (0.11-0.59); NEUT ABS # 3.14 K/uL (1.4-6.5); PLATELET COUNT 152 K/uL (130-400); RED CELL DISTRIBUTION WIDTH CV 13.6 % (11.5-14.5); RED CELL DISTRIBUTION WIDTH SD 46.4 fL (36.4-46.3); WHITE BLOOD COUNT 6.41 K/uL (4.8-10.8)
--- NOTE | 2017-03-29 15:13 | DIAGNOSTIC IMAGING REPORT ---
CHEST ONE VIEW PORTABLE CLINICAL HISTORY: Chest pain. COMPARISON STUDY: Chest CT September 28, 2016. FINDINGS: There are median sternotomy wires and clips from bypass grafting. Moderate cardiomegaly is unchanged. There is no evidence of pulmonary edema. There is no pneumothorax or pleural effusion. There is no consolidation to suggest pneumonia. Mild interstitial thickening is unchanged and likely chronic. IMPRESSION: 1. No acute cardiopulmonary findings. No change in appearance of the chest. 2. Stable interstitial thickening. Electronically signed by: Lane Treviño M.D. 03/29/2017 3:12 PM Dictated Date/Time: 03/29/2017 3:10 PM
--- NOTE | 2017-03-29 15:16 | EMERGENCY ROOM VISIT NOTE ---
History First contact with patient: 14:42 Chief Complaint: CHEST PAIN Stated Complaint: CHEST PAIN Nursing Triage Summary: Around 1030 patient developed SOB and chest pain and took 1 Nitro and pain subsided. Chest pain, SOB, nausea, and dizziness returned around 1300 and patient took another Nitro and called EMS. History of CABG in [address] James. Currently has no chest pain, but continues to feel SOB and dizzy when moving. Pt was given ASA 324mg by EMS. History of Present Illness The patient is a 76 year old male with past medical history of CABG, congestive heart failure, hyperlipidemia, remained in atrial flutter, hypertension, who presents to the Emergency Room with complaints of chest pain chest pain began at 10:30 this morning located in the substernal area felt like pressure moderate in nature. Pain radiated down his left arm. Patient stated he took one nitroglycerin which helped resolve the pain. At 1 PM the patient was walking down the stairs when he started to feel seen substernal chest pressure radiating down his left arm. He again took a sublingual nitroglycerin and then called his community health counselor Dr. James who instructed him to come to the emergency department. Patient called EMS and was given aspirin. The patient reported that after he got down the stairs he also felt short of breath and dizzy like he is going to pass out. Patient did not turn syncopal episode or fall or hit his head. The patient states he's been feeling increase shortness of breath with exertion like walking up and down stairs. He also reports increased pillow orthopnea Review of Systems See HPI for pertinent positives and negatives. A total of ten systems were reviewed and were otherwise negative. Constitutional: No fever, No chills Respiratory: + shortness of breath, + dyspnea on exertion, No cough, No sputum Cardiovascular: + chest pain, + orthopnea Abdomen: No pain, No nausea, No vomiting Neurologic: No weakness, No numbness/tingling Past Medical/Surgical History Medical Problems: (1) Acute blood loss anemia (2) Atrial flutter (3) CAD (coronary artery disease) (4) CAD (coronary artery disease) of bypass graft (5) CAD (coronary artery disease), [place] coronary artery (6) Chest pain (7) CHF exacerbation (8) Colitis (9) Diabetes (10) Encounter for Hemoccult screening (11) Encounter for Hemoccult screening (12) Heart disease (13) Hypertension (14) Unstable angina Family History Diabetes mellitus FATHER FH: cirrhosis MOTHER Hypertension FATHER Stroke FATHER Social History Smoking Status: Never Smoker Drug Use: none Marital Status: Housing Status: lives alone Occupation Status: retired Current/Historical Medications Scheduled Aspirin (Aspirin Chewable), 81 MG PO QPM Beclomethasone Dip (Qvar), 40 MCG INH QAM Dronedarone (Multaq), 400 MG PO BID Furosemide (Lasix), 40 MG PO QAM Insulin Isophane (Human) (Humulin N Kwikpen), 20 UNITS SC QAM Insulin Isophane (Human) (Humulin N Kwikpen), 40 UNITS SC QPM Ipratropium-Albuterol (Combivent Respimat), 1 PUFFS INH QID Isosorbide Mononitrate Ext Rel (Imdur Ext Rel), 120 MG PO BID Levothyroxine Sodium (Levothyroxine Sodium), 100 MCG PO QAM Metformin HCl (Metformin HCl), 1,000 MG PO BID Metoprolol Succinate (Metoprolol Succinate ER), 100 MG PO BID Multiple Vitamins W/ Minerals (Multi Complete), 1 TAB PO QPM Potassium Chloride Microencaps (Potassium Chloride Er), 10 MEQ PO BID Ranolazine (Ranexa), 500 MG PO Q12 Simvastatin (Simvastatin), 20 MG PO HS Tamsulosin HCl (Tamsulosin HCl), 0.4 MG PO HS Scheduled PRN Albuterol Hfa (Ventolin Hfa), 2-4 PUFFS INH Q6H PRN for Shortness of Breath Alprazolam (Alprazolam), 0.25 MG PO TID PRN for Anxiety Hydrocodone/Acetaminophen 5MG/325MG ([place] 5MG/325MG), 1 TABLET PO Q12 PRN for Pain Nitroglycerin (Nitrostat), 0.4 MG UT UD PRN for Chest Pain Physical Exam Vital Signs Date Time Temp Pulse Resp B/P (MAP) Pulse Ox O2 Delivery O2 Flow Rate FiO2 03/29/17 15:26 69 18 156/88 93 Room Air 03/29/17 15:26 93 Room Air 03/29/17 14:22 64 03/29/17 14:20 36.6 67 20 173/78 97 Room Air 03/29/17 14:20 95 Room Air 03/29/17 14:20 95 Room Air Physical Exam GENERAL: Awake, alert, well-appearing, in no distress HENT: Normocephalic, Atraumatic. no hemotympanum bilaterally, ennis sign negative bilaterally. Oropharynx unremarkable. EYES: Normal conjunctiva. Sclera non-icteric. PERRL bilaterally. EOMI bilaterally. NECK: Supple. No nuchal rigidity. FROM. No JVD. No C-spine tenderness. RESPIRATORY: Clear to auscultation. No wheezes rales or rhonchi bilaterally CARDIAC: Regular rate, normal rhythm. Extremities warm and well perfused. Equal palpable radial pulses to the bilateral upper extremities. Equal palpable DP pulses to the bilateral lower extremities. ABDOMEN: Soft, non-distended. No tenderness to palpation. No rebound or guarding. No masses. Rovsig Negative. RECTAL: Deferred. MUSCULOSKELETAL: Chest examination reveals no tenderness. The back is symmetrical on inspection without obvious abnormality. There is no CVA tenderness to palpation. No joint edema. LOWER EXTREMITIES: Calves are equal size bilaterally and non-tender. No edema. No discoloration. NEURO: Normal sensorium. No sensory or motor deficits noted. No pronator drift. No facial droop. No dysarthria. SKIN: No rash or jaundice noted. Medical Decision & Procedures Laboratory Results 03/29/17 14:30 Red Blood Count 4.50, Mean Corpuscular Volume 94.0, Mean Corpuscular Hemoglobin 32.7, Mean Corpuscular Hemoglobin Concent 34.8, Mean Platelet Volume 10.1, Neutrophils (%) (Auto) 49.0, Lymphocytes (%) (Auto) 36.5, Monocytes (%) (Auto) 9.5, Eosinophils (%) (Auto) 4.4, Basophils (%) (Auto) 0.3, Neutrophils # (Auto) 3.14, Lymphocytes # (Auto) 2.34, Monocytes # (Auto) 0.61, Eosinophils # (Auto) 0.28, Basophils # (Auto) 0.02 03/29/17 14:30 Test 03/29/17 14:30 White Blood Count 6.41 K/uL (4.8-10.8) Red Blood Count 4.50 M/uL (4.7-6.1) Hemoglobin 14.7 g/dL (14.0-18.0) Hematocrit 42.3 % (42-52) Mean Corpuscular Volume 94.0 fL (80-100) Mean Corpuscular Hemoglobin 32.7 pg (25-34) Mean Corpuscular Hemoglobin Concent 34.8 g/dl (32-36) Platelet Count 152 K/uL (130-400) Mean Platelet Volume 10.1 fL (7.4-10.4) Neutrophils (%) (Auto) 49.0 % Lymphocytes (%) (Auto) 36.5 % Monocytes (%) (Auto) 9.5 % Eosinophils (%) (Auto) 4.4 % Basophils (%) (Auto) 0.3 % Neutrophils # (Auto) 3.14 K/uL (1.4-6.5) Lymphocytes # (Auto) 2.34 K/uL (1.2-3.4) Monocytes # (Auto) 0.61 K/uL (0.11-0.59) Eosinophils # (Auto) 0.28 K/uL (0-0.5) Basophils # (Auto) 0.02 K/uL (0-0.2) RDW Standard Deviation 46.4 fL (36.4-46.3) RDW Coefficient of Variation 13.6 % (11.5-14.5) Immature Granulocyte % (Auto) 0.3 % Immature Granulocyte # (Auto) 0.02 K/uL (0.00-0.02) Anion Gap 5.0 mmol/L (3-11) Est Creatinine Clear Calc Drug Dose 68.3 ml/min Estimated GFR () 79.7 Estimated GFR (Non- 68.8 BUN/Creatinine Ratio 7.2 (10-20) Calcium Level 8.7 mg/dl (8.5-10.1) Troponin I < 0.015 ng/ml (0-0.045) Pro-B-Type Natriuretic Peptide 215 pg/ml (0-900) ECG Indication: chest pain Rate (beats per minute): 69 Rhythm: normal sinus Findings: no acute ischemic change, no ectopy, other (no ST elevation or ST depression) Comparison ECG Date: Change: no significant change ED Course 1544: EKG chest x-ray labs including cardiac enzymes and pro BMP within normal limits. Spoke with patient's community health counselor who recommended to bring the patient into observation for serial troponins. He states he will evaluate the patient in the morning and decide if he needs a repeat cardiac cath. Patient is agreeable. Spoke with [facility] [place] who accepted the patient. The chart was completed utilizing [employer] voice recognition software. Grammatical errors, random word insertions, pronoun errors, and incomplete sentences are an occasional consequence of this system due to software limitations, ambient noise, and hardware issues. Any formal questions or concerns about the content, text, or information contained within the body of this dictation should be directly addressed to the physician for clarification. Medical Decision 1544: EKG chest x-ray labs including cardiac enzymes and pro BMP within normal limits. Spoke with patient's community health counselor who recommended to bring the patient into observation for serial troponins. He states he will evaluate the patient in the morning and decide if he needs a repeat cardiac cath. Patient is agreeable. Spoke with [facility] [place] who accepted the patient. Impression Primary Impression: Chest pain Additional Impression: Dyspnea Departure Information Dispostion Being Evaluated By Hospitalist Referrals RV. Ewing MD (PCP) Patient Instructions My [facility] Problem Qualifiers Primary Impression: Chest pain Chest pain type: unspecified Qualified Codes: R07.9 - Chest pain, unspecified Additional Impression: Dyspnea Dyspnea type: dyspnea on exertion Qualified Codes: R06.09 - Other forms of dyspnea
[2017-03-29 15:18] LABS: BLOOD UREA NITROGEN 8 mg/dl (7-18); CALCIUM 8.7 mg/dl (8.5-10.1); CARBON DIOXIDE 30 mmol/L (21-32); CREATININE 1.06 mg/dl (0.60-1.40); GLUCOSE 127 mg/dl (70-99); POTASSIUM 3.9 mmol/L (3.5-5.1); SODIUM 136 mmol/L (136-145)
[2017-03-29] MEDS ORDERED: INSU1INJ23 SQ (15:57)
[2017-03-29] MEDS ORDERED: CHOL1000 PO (15:57)
[2017-03-29] MEDS ORDERED: ACETAMINOPHEN 325 MG TAB PO PRN (16:15)
[2017-03-29] MEDS ORDERED: MAGNESIUM HYDROXIDE SUSP 30 ML UDC PO PRN (16:15)
[2017-03-29] MEDS ORDERED: ALUMINUM/MAGNESIUM/SIMETH (MAALOX MAX) 30 ML UDC PO PRN (16:15)
[2017-03-29] MEDS ORDERED: ONDANSETRON INJ 2 MG/ML 2 ML VIAL IV PRN (16:15)
[2017-03-29] MEDS ORDERED: NITROGLYCERIN 0.4 MG SL PER TAB CHARGE SL PRN (16:15)
[2017-03-29] MEDS ORDERED: ALBUTEROL HFA 8 GM INHALER INH PRN (16:15)
[2017-03-29] MEDS ORDERED: MoRPHine SULFATE 2 MG/ML CARP IV PRN (16:15)
[2017-03-29] MEDS ORDERED: POLYETHYLENE (MIRALAX) 17 GM PACK PO PRN (16:15)
[2017-03-29] MEDS ORDERED: IV FLUIDS COMPLETED PRN (16:15)
--- NOTE | 2017-03-29 17:00 | History and Physical ---
History & Physical Date & Time of Service: Mar 29, 2017 at 16:18 Chief Complaint: Chest Pain Primary Care Physician: RV. Ewing MD History of Present Illness Source: patient 76 y/o M Hx HTN, HPL, DM, obese, hypothyroid, paroxysmal flutter, systolic CHF, CAD. Developed central CP radiating to L arm which improved with NTG. Also states that he has been increasingly dyspneic with exertion. Denies N/V or diaphoresis accompanying his CP. When walking out of his house to attend the hospital, the pt became lightheaded and felt like he was going to pass out. His chest pain has resolved at the time of evaluation for admission. Past Medical/Surgical History 1) HTN 2) Chronic systolic CHF - EF 45% 3) Atrial flutter 4) IDDM 5) HTN 6) HPL 7) Obesity 8) Carotid stenosis - post endarterectomy 9) Chronic angina 10) Hyperthyroidism 11) CAD - 2 vessel CABG - PCI x 7 Last PCI 03/02: LAD 100%, apical LAD 60%, [id number] to LAD patent, proximal circumflex 50%, probable in-stent stenosis, mid circumflex 40%. Dominant RCA. Proximal RCA 99% with 100 % mid RCA occlusion. Proximal to mid RCA stents noted. [id number] and left -to-right collaterals noted, PDA and posterolateral branches appeared to have obstructive CAD, Second bypass graft appeared to be occluded Family History Diabetes mellitus FATHER FH: cirrhosis MOTHER Hypertension FATHER Stroke FATHER Social History Smoking Status: Never Smoker Drug Use: none Marital Status: Housing status: lives alone Occupational Status: retired Immunizations History of Influenza Vaccine: Yes Influenza Vaccine Date: Dec 26, 2014 History of Tetanus Vaccine?: Unknown History of Pneumococcal: Yes Pneumococcal Date: Dec 26, 2014 History of Hepatitis B Vaccine: Unknown Multi-Drug Resistant Organisms History of MDRO: No Allergies Coded Allergies: No Known Allergies (Verified , 03/29/17) Home Medications Scheduled Aspirin (Aspirin Chewable), 81 MG PO QPM Beclomethasone Dip (Qvar), 40 MCG INH QAM Cholecalciferol (Vitamin D3), 5,000 INTER.UNIT PO QPM Dronedarone (Multaq), 400 MG PO BID Furosemide (Lasix), 40 MG PO QAM Insulin Isophane (Human) (Humulin N Kwikpen), 40 UNITS SC QPM Insulin Isophane (Human) (Humulin N Kwikpen), 25 UNITS SQ QAM Ipratropium-Albuterol (Combivent Respimat), 1 PUFFS INH QID Isosorbide Mononitrate Ext Rel (Imdur Ext Rel), 120 MG PO BID Levothyroxine Sodium (Levothyroxine Sodium), 100 MCG PO QAM Metformin HCl (Metformin HCl), 1,000 MG PO BID Metoprolol Succinate (Metoprolol Succinate ER), 100 MG PO BID Multiple Vitamins W/ Minerals (Multi Complete), 1 TAB PO QPM Potassium Chloride Microencaps (Potassium Chloride Er), 10 MEQ PO BID Ranolazine (Ranexa), 500 MG PO Q12 Simvastatin (Simvastatin), 20 MG PO HS Tamsulosin HCl (Tamsulosin HCl), 0.4 MG PO HS Scheduled PRN Albuterol Hfa (Ventolin Hfa), 2-4 PUFFS INH Q6H PRN for Shortness of Breath Alprazolam (Alprazolam), 0.25 MG PO TID PRN for Anxiety Hydrocodone/Acetaminophen 5MG/325MG ([place] 5MG/325MG), 1 TABLET PO Q12 PRN for Pain Nitroglycerin (Nitrostat), 0.4 MG UT UD PRN for Chest Pain Review of Systems Constitutional: No fever, No chills, No sweats Eyes: No worsening of vision ENT: No hearing loss, No unusual epistaxis, No nasal symptoms Respiratory: No cough, No sputum, No wheezing Cardiovascular: + chest pain, + orthopnea, No PND Abdomen: No pain, No nausea, No vomiting Musculoskeletal: No joint pain Genitourinary - Male: No hematuria, No dysuria Neurologic: + problem reported (Near syncope as above), No memory loss, No paralysis, No weakness Psychiatric: No depression symptoms Endocrine: No fatigue Hematologic / Lymphatic: No abnormal bleeding/bruising Integumentary: No rash Allergic / Immunologic: No environmental allergies Physical Exam Vital Signs Date Time Temp Pulse Resp B/P (MAP) Pulse Ox O2 Delivery O2 Flow Rate FiO2 03/29/17 15:26 69 18 156/88 93 Room Air 03/29/17 15:26 93 Room Air 03/29/17 14:22 64 1/11/18 14:20 36.6 67 20 173/78 97 Room Air 03/29/17 14:20 95 Room Air 03/29/17 14:20 95 Room Air General Appearance: WD/WN, no apparent distress, + pertinent finding ( Overweight, elderly male - very preoccupied with a television show, resting nearly flat - appears comfortable) Head: normocephalic Eyes: normal inspection ENT: normal ENT inspection, pharynx normal Neck: supple, + pertinent finding (Exam limited by habitus) Respiratory/Chest: chest non-tender, + pertinent finding (Crackles at L lung base) Cardiovascular: regular rate, rhythm, no gallop, no JVD, + systolic murmur Abdomen/GI: normal bowel sounds, non tender, soft Back: normal inspection, no CVA tenderness Extremities/Musculoskelatal: normal inspection, no calf tenderness, normal capillary refill 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, no motor/sensory deficits Skin: warm/dry, no rash, + pertinent finding (Areas of hyper/hypopigmentation over face/scalp) Diagnostics Laboratory Results Results Past 24 Hours Test 03/29/17 14:30 Range/Units White Blood Count 6.41 4.8-10.8 K/uL Red Blood Count 4.50 4.7-6.1 M/uL Hemoglobin 14.7 14.0-18.0 g/dL Hematocrit 42.3 42-52 % Mean Corpuscular Volume 94.0 80-100 fL Mean Corpuscular Hemoglobin 32.7 25-34 pg Mean Corpuscular Hemoglobin Concent 34.8 32-36 g/dl Platelet Count 152 130-400 K/uL Mean Platelet Volume 10.1 7.4-10.4 fL Neutrophils (%) (Auto) 49.0 % Lymphocytes (%) (Auto) 36.5 % Monocytes (%) (Auto) 9.5 % Eosinophils (%) (Auto) 4.4 % Basophils (%) (Auto) 0.3 % Neutrophils # (Auto) 3.14 1.4-6.5 K/uL Lymphocytes # (Auto) 2.34 1.2-3.4 K/uL Monocytes # (Auto) 0.61 0.11-0.59 K/uL Eosinophils # (Auto) 0.28 0-0.5 K/uL Basophils # (Auto) 0.02 0-0.2 K/uL RDW Standard Deviation 46.4 36.4-46.3 fL RDW Coefficient of Variation 13.6 11.5-14.5 % Immature Granulocyte % (Auto) 0.3 % Immature Granulocyte # (Auto) 0.02 0.00-0.02 K/uL Sodium Level 136 136-145 mmol/L Potassium Level 3.9 3.5-5.1 mmol/L Chloride Level 101 98-107 mmol/L Carbon Dioxide Level 30 21-32 mmol/L Anion Gap 5.0 3-11 mmol/L Blood Urea Nitrogen 8 7-18 mg/dl Creatinine 1.06 0.60-1.40 mg/dl Est Creatinine Clear Calc Drug Dose 68.3 ml/min Estimated GFR () 79.7 Estimated GFR (Non- 68.8 BUN/Creatinine Ratio 7.2 10-20 Random Glucose 127 70-99 mg/dl Calcium Level 8.7 8.5-10.1 mg/dl Troponin I < 0.015 0-0.045 ng/ml Pro-B-Type Natriuretic Peptide 215 0-900 pg/ml Diagnostic Radiology No infiltrates or congestion reported EKG Sinus - anterior and lat inversions which were present on previous EKG and are less pronounced Impression Assessment and Plan 76 y/o M Hx HTN, HPL, DM, obese, hypothyroid, paroxysmal flutter, systolic CHF, CAD. Developed central CP radiating to L arm which improved with NTG. Also states that he has been increasingly dyspneic with exertion. Denies N/V or diaphoresis accompanying his CP. When walking out of his house to attend the hospital, the pt became lightheaded and felt like he was going to pass out. His chest pain has resolved at the time of evaluation for admission. 1) CP - documented severe CAD - assigned to telemetry - serial enzymes - NTG/ Morphine PRN - cont ASA, B giancarlo, Statin, Ranexa - to be evaluated by his hitcher AM. 2) CHF - complains of orthopnea and exertional dyspnea. Takes 40mg Lasix daily - difficult to assess his volume status due to his habitus. Would hold additional diuresis pending AM reassessment as he appears comfortable lying down presently. Cont B giancarlo, Imdur, Lasix. 3) Near syncope - transient episode of lightheadedness - unclear etiology - will monitor on telemetry - may need a halter if recurs - rhythm has been sinus throughout stay in ER. 4) HTN - cont 5) HPL - cont Statin therapy 6) DM - placed on SS with long-acting insulin BID 7) Paroxysmal flutter - sinus presently - does not employ anticoagulation - fall risk and previous GI bleed - cont Metoprolol, ASA 8) Hypothyroid - cont Synthroid Full code - Heparin prophylaxis Total time for this admit including review of labs, meds, imaging, records - discussion with pt and ER attending - 38 min Level of Care Telemetry Resuscitation Status FULL RESUSCITATION VTE Prophylaxis VTE Risk Assessment Done? Y/N: Yes Risk Level: Moderate Given or contraindicated: Unfractionated heparin SQ
[2017-03-29 17:09] VITALS: BP_SYST 183; BP_SYST 185; BP_DIAS 84; BP_DIAS 91; PULSE 66; TEMP 36.7; O2SAT 96; Ht 172.7 cm; Wt 91.4 kg
[2017-03-29 17:30] VITALS: BP 170/73; PULSE 66
[2017-03-29 18:21] LABS: INR 1.1 (0.9-1.1)
[2017-03-29 19:02] VITALS: BP 182/81; PULSE 71; TEMP 36.7; O2SAT 96
[2017-03-29 19:27] VITALS: O2SAT 92
[2017-03-29] MEDS: SIMVASTATIN 20 MG TAB PO SCH (20:54)
[2017-03-29] MEDS: METOPROLOL SUCC 50MG EXT REL TAB PO SCH (20:54)
[2017-03-29] MEDS: TAMSULOSIN HCL 0.4 MG CAP PO SCH (20:54)
[2017-03-29] MEDS: ASPIRIN 81 MG ECTAB PO SCH (20:54)
[2017-03-29] MEDS: POTASSIUM CHLORIDE 10 MEQ TABCR PO SCH (20:54)
[2017-03-29] MEDS: RANOLAZINE 500 MG ER TAB PO SCH (20:54)
[2017-03-29] MEDS: DRONEDARONE 400 MG TAB PO SCH (20:54)
[2017-03-29] MEDS: ISOSORBIDE MONONITRATE 60 MG TABCR PO SCH (20:55)
[2017-03-29] MEDS: ALPRAZOLAM 0.25 MG TAB PO PRN (21:00)
[2017-03-29] MEDS: HYDROCODONE/ACETAMOPHEN 5/325MG TAB PO PRN (21:01)
[2017-03-29] MEDS: HEPARIN SOD 5000 UNIT/0.5 ML CARP SQ SCH (22:00)
[2017-03-29 23:06] VITALS: BP 162/76; PULSE 71; TEMP 36.7; O2SAT 93
[2017-03-30] VITALS (8 sets, daily range): BP systolic 112–182; BP diastolic 48–84; PULSE 58–71; TEMP 36–36.7; O2SAT 92–95
[2017-03-30] MEDS: HEPARIN SOD 5000 UNIT/0.5 ML CARP SQ SCH ×4 (05:28→22:17)
[2017-03-30] MEDS: ALPRAZOLAM 0.25 MG TAB PO PRN ×2 (07:58→20:59)
[2017-03-30] MEDS: HYDROCODONE/ACETAMOPHEN 5/325MG TAB PO PRN ×2 (08:00→20:59)
[2017-03-30] MEDS: ISOSORBIDE MONONITRATE 60 MG TABCR PO SCH ×2 (08:00→20:56)
[2017-03-30] MEDS: BECLOMETHASONE DIP HFA 80 MCG 8.7G INH INH SCH (08:01)
[2017-03-30] MEDS: FUROSEMIDE 40 MG TAB PO SCH (08:01)
[2017-03-30] MEDS: POTASSIUM CHLORIDE 10 MEQ TABCR PO SCH ×2 (08:02→20:55)
[2017-03-30] MEDS: RANOLAZINE 500 MG ER TAB PO SCH ×2 (08:02→20:55)
[2017-03-30] MEDS: METOPROLOL SUCC 50MG EXT REL TAB PO SCH ×2 (08:03→20:55)
[2017-03-30] MEDS: DRONEDARONE 400 MG TAB PO SCH ×2 (08:04→20:54)
[2017-03-30] MEDS: LEVOTHYROXINE 100 MCG TAB PO SCH (08:04)
[2017-03-30] MEDS: INSULIN HUMAN NPH SQ SCH (08:13)
--- NOTE | 2017-03-30 10:13 | CARDIOLOGY CONSULTATION ---
DATE OF CONSULTATION: 03/30/2017 TIME: 08:49 a.m. CONSULTING PHYSICIAN: Dr. Lemus. REASON FOR CONSULTATION: Chest pain. HISTORY OF PRESENT ILLNESS: Mr. Alfonso is a pleasant 76-year-old gentleman with a history significant for CAD, status post CABG x2, 7 prior PCIs, systolic CHF, diabetes, hypertension, carotid artery stenosis status post carotid endarterectomy, dyslipidemia, and atrial flutter. He also has significant anemia while on anticoagulation, requiring intravenous iron infusions and is no longer on anticoagulation secondary to severe GI bleeding and his bahai beliefs, where he will not receive blood products. He was seen in the office on 03/08/2017 and was doing quite well at that time. He had not been experiencing any angina. Then yesterday, after some light exertion, he developed left-sided chest discomfort that radiated to his left arm. It was preceded by dyspnea with exertion. The episode of chest pain lasted approximately 20 minutes and resolved after nitroglycerin. A bit later, he had another episode and once again relieved with nitroglycerin. Because of the symptoms, he called the cardiology office and was instructed by triage to report to the Emergency Department. He states that this chest discomfort was different than his prior angina. In regards to his dyspnea with exertion, it occurred with light exertion around the home and he also noted orthopnea. He did not notice any change in his weight, but did notice some edema. Overnight, he had another episode of chest discomfort, but this was different. He described it as substernal chest discomfort that lasted 5-10 minutes without radiation. It occurred this morning while standing at the sink when he was getting ready to brush his teeth. It was also different than his prior angina. He could not further characterize his chest pain. He is currently chest pain free. His breathing is back to baseline. He states that he has been taking all his medications as prescribed. He admits that he did eat some chicken noodle soup just a couple of days ago, but otherwise tries to avoid foods high in sodium content. He also states that his blood pressure was more elevated when he came to the hospital and assured that he did not miss any of his medications. He also states that he wonders if anxiety/stress/depression could be playing a role. Today is the anniversary of his 's 4 years ago. He states that he has been thinking a lot about her and the anniversary of her over the last several days and admits that he is a little bit depressed in this regard. He does feel unstable on his feet at times and if he gets out of bed or stands up quickly from a seated position, he will experience lightheadedness or dizziness. He did have some diarrhea, but this has resolved. He denies melena, hematochezia or hematuria. He denies any recent fevers or chills. He denies syncope or palpitations. REVIEW OF SYSTEMS: As above and review of systems otherwise negative/unremarkable. PAST MEDICAL HISTORY: 1. Systolic CHF. 2. Multivessel coronary artery disease status post coronary artery bypass graft x2 and multiple PCI, not amenable to revascularization. RODRIGUEZ to LAD. Second bypass grafts occluded. 3. Paroxysmal atrial flutter, on antiarrhythmic therapy. Anticoagulation discontinued in the past secondary to his upper GI bleeding. 4. Ischemic cardiomyopathy with mildly reduced systolic function. 5. Dyslipidemia. 6. Hypertension. 7. Diabetes. 8. Status post DC cardioversion on 04/16/2015 for atrial flutter. 9. Moderate mixed restrictive/obstructive airway disease. 10. Anemia. 11. Anxiety. 12. BPH. 13. Hearing loss. 14. Blindness. 15. Sleep apnea. 16. Hypothyroidism. 17. Vitamin D deficiency. CURRENT INPATIENT MEDICATIONS: Include aspirin 81 mg daily, Multaq 400 mg p.o. b.i.d., Lasix 40 mg p.o. daily, isosorbide mononitrate 120 mg p.o. b.i.d., metoprolol succinate 100 mg p.o. b.i.d., potassium chloride 10 mEq p.o. b.i.d., ranolazine 500 mg p.o. q. 12 hours, simvastatin 20 mg daily, and Flomax 0.4 mg at bedtime. ALLERGIES: No known drug allergies. SOCIAL HISTORY: Quit smoking in 1991, but he did smoke up to 3 packs per day before that. He lives alone. No alcohol since 2001. He is a with his passing away 4 years ago today. He has 3 biological children and his second had 8 children of her own. He is a Druze and will not accept blood products. FAMILY HISTORY: Brother and father had strokes. PHYSICAL EXAMINATION: VITAL SIGNS: Temperature 36.3 degrees, heart rate 67 beats per minute, respiratory rate 18, and blood pressure 128/67 mmHg. Prior to this morning's blood pressures, blood pressure has otherwise been elevated up to 185/91 mmHg. Oxygen saturation is 92% on room air. I's and O's positive 325 mL overnight. Weight is 93.6 kg. GENERAL: No acute distress. He is alert. HEENT: Anicteric sclerae. NECK: No appreciable JVD. Carotid bruits bilaterally. Normal carotid upstrokes bilaterally. CARDIAC EXAMINATION: PMI was not palpable. There was no ventricular heave. Regular, normal S1 and S2. No rubs or gallops. 1/6 early peaking systolic ejection murmur best heard at the right upper sternal border. LUNGS: Decreased breath sounds throughout, but otherwise clear. ABDOMEN: Soft, nontender, and nondistended. Normoactive bowel sounds. No bruits noted. EXTREMITIES: 2+ radial pulses bilaterally. 1+ posterior tibialis pulses bilaterally. No significant edema. No cyanosis. PSYCHIATRIC: Affect appears appropriate. ECG upon presentation personally reviewed. Sinus rhythm at [address]/T wave abnormality in the anterior leads. Compared to prior ECG on 10/15/2016, T-wave inversion no longer evident in lateral leads and less evident in the anterior leads. Inferior infarct criteria no longer present. Telemetry strips personally reviewed. Sinus rhythm. LABORATORY DATA: Sodium 136, potassium 3.9, BUN 8, and creatinine 1.06. Troponin undetectable x3. ProBNP 215. INR 1.1. Chest x-ray report no acute cardiopulmonary findings per radiology. Stable interstitial thickening per radiology. Most recent echocardiogram on 07/05/2015: Mildly dilated LV with mildly reduced systolic function. EF 45%-50%. Akinetic base to mid inferior wall. Akinetic septal base. Moderate LVH. Type 2 diastolic dysfunction. Mild biatrial dilation. Sclerotic aortic valve. Mild MR. Most recent cardiac catheterization on 02/26/2015: Mid LAD 100%. Apical LAD 60%. RODRIGUEZ to LAD patent. Proximal circumflex 50%. Probable in-stent stenosis. Mid circumflex 40%. Dominant RCA. Proximal RCA 99% with 100% mid RCA occlusion. Proximal to mid RCA stents noted. Kspjt-af-hoyza and [id number]-[id number] collaterals. PDA and posterolateral branch appear to have obstructive CAD, but were very small caliber vessels. Second bypass graft appeared to be occluded. ASSESSMENT AND PLAN: 1. Chest pain: Chest pain is of uncertain etiology. He states that it is different than prior angina. Cannot rule out that it is ischemic in origin given his underlying coronary disease, especially given the fact that he was hypertensive. Blood pressure is now improved. Negative troponins. Given the fact that his coronary artery disease was not thought to be amenable to intervention, further ischemic evaluation is not recommended at this time. Also, his ECG is actually improved compared to prior ECG. Would encourage ambulation in the hallway later today to reassess symptoms. 2. Shortness of breath: Etiology uncertain. He does not appear to be hypervolemic or rather euvolemic and a ProBNP is less than 300. This does not appear to be a heart failure exacerbation. He is currently asymptomatic. Cannot rule out that it was related to his stress/anxiety over the fact that his 4 years today and could also be related to his hypertension. He is currently asymptomatic. Would encourage ambulation in the hallway to see how he does overall. If there is concern for hypervolemia at some point, could give 1 dose of IV diuretic, but will hold off for now given normal ProBNP and euvolemic exam. 3. Chronic systolic congestive heart failure: He appears euvolemic. Plan as above. Continue outpatient Lasix dose. 4. Multivessel coronary artery disease, status post coronary artery bypass graft x2 and multiple percutaneous coronary interventions: He describes his chest pain as being different than prior angina. Plan as above. Continue aspirin 81 mg daily. Continue statin therapy. Continue nitrate and Ranexa therapy. Continue beta giancarlo at current dose. He did not tolerate Lipitor or Crestor in the past and simvastatin was reduced in the past while on Ranexa. If he has recurrent chest discomfort, could increase Ranexa to 1000 mg twice daily if tolerated, but continue current dose for now as planned above. 5. Paroxysmal atrial flutter: On Multaq. He is currently in sinus rhythm. He had severe anemia with GI bleeding, on anticoagulation therapy. He will not accept blood products. We have discussed increased stroke risk in the past. 6. Ischemic cardiomyopathy: Mildly reduced left ventricular systolic function. Continue current doses of medications. Lisinopril was discontinued in the past secondary to acute renal failure and orthostasis. 7. Hypertension: Blood pressure is currently normal today. Can titrate medications if blood pressures once again become significantly elevated as it could have played a role in his symptoms. Blood pressure may have been elevated due to his stress/anxiety over his 's as he spent a great deal of time today discussing that. We also discussed the importance of a low sodium diet as he did have increased sodium consumption over the past couple days. 8. Depression/anxiety: A great deal of today's visit was spent discussing his morning of his 's . He was made aware that counseling and/or medical therapy could be offered if necessary. He is aware. We will defer this to the primary hospitalist service. 9. Disposition: I will be away from the hospital for the next 2 days. If he remains hospitalized, Dr. Galicia will be available. Please call him if you have any questions or concerns. 45 minutes spent, with greater than 50% of that time spent counseling the patient and also coordinating care.
--- NOTE | 2017-03-30 14:50 | Progress Note ---
Subjective Date of Service: Mar 30, 2017. 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 w/ leasing sales consultant, review of inpatient medication list Pain: no chest pain PO Intake: adequate Voiding: no voiding problems patient doing well, no further chest pain, ambulating in the [place] has some depression and anxiety, today is 4 year anniversary of 's troponin negative, vitals stable patient would like to go home tomorrow, does not feel safe today Problem List Medical Problems: (1) Acute bronchitis Status: Acute (2) Chest pain Status: Acute (3) Chest pain, precordial Status: Acute (4) Chronic anemia Status: Acute (5) Dizziness Status: Acute (6) Dyspnea Status: Acute (7) Facial paresthesia Status: Acute (8) Lactic acidosis Status: Acute (9) Precordial chest pain Status: Acute (10) Precordial chest pain Status: Acute (11) SOB (shortness of breath) Status: Acute (12) Vomiting and diarrhea Status: Acute Review of Systems Constitutional: + weakness, + fatigue All Other Systems: Reviewed and Negative Medications Current Inpatient Medications Medications (Trade) Dose Ordered Sig/Eladio Route Start Time Stop Time Status Last Admin Dose Admin Heparin Sodium (Porcine) (Heparin Sq 5000 Unit/0.5ml) 5,000 unit Q8H SQ 03/29/17 22:00 04/28/17 21:59 Acetaminophen (Tylenol Tab) 650 mg Q4H PRN PO 03/29/17 16:15 04/28/17 16:14 Al Hydrox/Mg Hydrox/Simethicone (Maalox Max Susp) 15 ml Q4H PRN PO 03/29/17 16:15 04/28/17 16:14 Magnesium Hydroxide (Milk Of Magnesia Susp) 30 ml Q12H PRN PO 03/29/17 16:15 04/28/17 16:14 Ondansetron HCl (Zofran Inj) 4 mg Q6H PRN IV 03/29/17 16:15 04/28/17 16:14 Nitroglycerin (Nitrostat Tab) 0.4 mg UD PRN SL 03/29/17 16:15 04/28/17 16:14 Morphine Sulfate (MoRPHine SULFATE INJ) 2 mg Q30M PRN IV 03/29/17 16:15 1/25/18 16:14 Polyethylene (Miralax Powder Packet) 17 gm DAILY PRN PO 03/29/17 16:15 04/28/17 16:14 Albuterol (Ventolin Hfa Inhaler) 2 puffs Q4H PRN INH 03/29/17 16:15 04/28/17 16:14 Alprazolam (Xanax Tab) 0.25 mg TID PRN PO 03/29/17 16:15 04/28/17 16:14 03/30/17 07:58 0.25 MG Aspirin (Ecotrin Tab) 81 mg QPM PO 03/29/17 21:00 04/28/17 20:59 03/29/17 20:54 81 MG Beclomethasone Dipropionate (Qvar 80 Mcg Hfa Inhaler) 2 puffs QAM INH 03/30/17 09:00 04/29/17 08:59 03/30/17 08:01 2 PUFFS Dronedarone (Multaq Tab) 400 mg BID PO 03/29/17 21:00 04/28/17 20:59 03/30/17 08:04 400 MG Furosemide (Lasix Tab) 40 mg QAM PO 03/30/17 09:00 04/29/17 08:59 03/30/17 08:01 40 MG Acetaminophen/ Hydrocodone Bitart (Wright 5/325 Tab) 1 tab Q12 PRN PO 03/29/17 16:15 04/12/17 16:14 03/30/17 08:00 1 TAB Insulin Human NPH (novoLIN-N NPH) 25 units QDB SQ 03/30/17 07:30 04/29/17 07:29 03/30/17 08:13 25 UNITS Insulin Human NPH (novoLIN-N NPH) 40 units QDD SC 03/30/17 16:45 04/29/17 16:44 Isosorbide Mononitrate (Imdur Ext Rel Tab) 120 mg BID PO 03/29/17 21:00 04/28/17 20:59 03/30/17 08:00 120 MG Levothyroxine Sodium (Synthroid Tab) 100 mcg QDB PO 03/30/17 07:30 04/29/17 07:29 03/30/17 08:04 100 MCG Potassium Chloride (Klor-Con M10) 10 meq BID PO 03/29/17 21:00 04/28/17 20:59 03/30/17 08:02 10 MEQ Simvastatin (Zocor Tab) 20 mg HS PO 03/29/17 21:00 04/28/17 20:59 03/29/17 20:54 20 MG Tamsulosin HCl (Flomax Cap) 0.4 mg HS PO 03/29/17 21:00 04/28/17 20:59 03/29/17 20:54 0.4 MG Metoprolol Succinate (Toprol Xl Tab) 100 mg BID PO 03/29/17 21:00 04/28/17 20:59 03/30/17 08:03 100 MG Ranolazine (Ranexa ER Tab) 500 mg Q12 PO 03/29/17 21:00 04/28/17 20:59 03/30/17 08:02 500 MG Miscellaneous (Iv Fluids Completed) 1 ea PRN PRN N/A 03/29/17 16:15 03/29/18 16:14 Objective Vital Signs Date Time Temp Pulse Resp B/P (MAP) Pulse Ox O2 Delivery O2 Flow Rate FiO2 03/30/17 13:52 36.2 64 18 142/52 (82) 94 Room Air 03/30/17 12:11 36.0 71 18 145/48 (80) 92 Room Air 03/30/17 11:56 36.7 64 18 94 03/30/17 11:33 Room Air 03/30/17 08:00 Room Air 03/30/17 07:19 36.7 64 20 165/84 (111) 94 03/30/17 04:00 Room Air 03/30/17 03:10 36.3 67 18 128/67 (87) 92 Room Air 03/30/17 00:01 Room Air 03/29/17 23:06 36.7 71 18 162/76 (104) 93 Room Air 03/29/17 20:00 Room Air 03/29/17 19:27 92 Room Air 03/29/17 19:02 36.7 71 16 182/81 (114) 96 Nasal Cannula 2.0 03/29/17 17:30 66 170/73 (105) 03/29/17 17:09 36.7 66 20 183/84 96 Nasal Cannula 2.0 185/91 03/29/17 16:48 64 16 157/79 95 03/29/17 15:26 69 18 156/88 93 Room Air 03/29/17 15:26 93 Room Air Physical Exam General Appearance: WD/WN, no apparent distress ENT: normal ENT inspection, hearing grossly normal, pharynx normal Neck: supple, no adenopathy, no JVD, trachea midline Respiratory/Chest: chest non-tender, lungs clear, normal breath sounds, no respiratory distress, no accessory muscle use Cardiovascular: regular rate, rhythm, no edema, no gallop, no JVD, no murmur Abdomen: normal bowel sounds, non tender, soft, no organomegaly Extremities: normal range of motion, non-tender, normal inspection, no pedal edema, no calf tenderness, pelvis stable Neurologic/Psychiatric: 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 Developed central CP radiating to L arm which improved with NTG. Also states that he has been increasingly dyspneic with exertion. Denies N/V or diaphoresis accompanying his CP. When walking out of his house to attend the hospital, the pt became lightheaded and felt like he was going to pass out. His chest pain has resolved at the time of evaluation for admission. 1) CP - documented severe CAD - no arrhythmia, troponin negative x 3 NTG/Morphine PRN - cont ASA, B giancarlo, Statin, Ranexa no further work up per cardiology, will transfer to medical floor d/c home in the morning 2) CHF - appears euvolemic, will continue Lasix 40mg daily 3) Near syncope - transient episode of lightheadedness - unclear etiology no further episodes while admitted 4) HTN - cont 5) HPL - cont Statin therapy 6) DM - placed on SS with long-acting insulin BID 7) Paroxysmal flutter - sinus presently - does not employ anticoagulation - fall risk and previous GI bleed - cont Metoprolol, ASA 8) Hypothyroid - cont Synthroid
[2017-03-30] MEDS ORDERED: INSULIN HUMAN NPH SC SCH (16:45)
[2017-03-30] MEDS: ASPIRIN 81 MG ECTAB PO SCH (20:55)
[2017-03-30] MEDS: SIMVASTATIN 20 MG TAB PO SCH (20:55)
[2017-03-30] MEDS: TAMSULOSIN HCL 0.4 MG CAP PO SCH (20:56)
[2017-03-31 03:50] VITALS: BP 125/69; PULSE 65
[2017-03-31 07:38] VITALS: BP 134/68; PULSE 61; TEMP 36.4; O2SAT 96
[2017-03-31] MEDS: DRONEDARONE 400 MG TAB PO SCH (08:32)
[2017-03-31] MEDS: POTASSIUM CHLORIDE 10 MEQ TABCR PO SCH (08:32)
[2017-03-31] MEDS: METOPROLOL SUCC 50MG EXT REL TAB PO SCH (08:32)
[2017-03-31] MEDS: ISOSORBIDE MONONITRATE 60 MG TABCR PO SCH (08:33)
[2017-03-31] MEDS: FUROSEMIDE 40 MG TAB PO SCH (08:33)
[2017-03-31] MEDS: LEVOTHYROXINE 100 MCG TAB PO SCH (08:34)
[2017-03-31] MEDS: RANOLAZINE 500 MG ER TAB PO SCH (08:34)
[2017-03-31] MEDS: BECLOMETHASONE DIP HFA 80 MCG 8.7G INH INH SCH (08:35)
[2017-03-31] MEDS: INSULIN HUMAN NPH SQ SCH (08:38)
[2017-03-31] MEDS: ALPRAZOLAM 0.25 MG TAB PO PRN (08:39)
[2017-03-31] MEDS: HYDROCODONE/ACETAMOPHEN 5/325MG TAB PO PRN (08:39)
--- NOTE | 2017-03-31 11:02 | Discharge Instructions ---
Discharge Instructions Date of Service Mar 31, 2017. Admission Reason for Admission: Chest Pain, Near Syncope Discharge Discharge Diagnosis / Problem: Chest pain, near syncope Discharge Goals Goal(s): Improve function, Increase independence Activity Recommendations Activity Limitations: resume your previous activity . Instructions / Follow-Up Instructions / Follow-Up Medications: no changes Work up for chest pain with EKG and troponin (heart enzymes) negative for any signs of ischemia or heart attack. Cleared for discharge by cardiology. Pre-syncope: no issues while admitted, no findings on hall monitor, normal orthostatic vitals FOLLOW UP - Dr. Nino in one week Current Hospital Diet Patient's current hospital diet: AHA Diet (Heart Healthy), Diabetes Type 2 Diet Discharge Diet Recommended Diet: AHA Diet (Heart Healthy), Diabetes Type 2 Diet Pending Studies Studies pending at discharge: no Laboratory Results Hemoglobin A1c Test 02/22/17 13:22 Range/Units Estimated Average Glucose 163 mg/dl Hemoglobin A1c 7.3 H 4.5-5.6 % Lipid Panel Test 02/22/17 13:22 Range/Units Triglycerides Level 200 H 0-150 mg/dl Cholesterol Level 124 0-200 mg/dl HDL Cholesterol 39 mg/dl Cholesterol/HDL Ratio 3.2 LDL Cholesterol, Calculated 45 mg/dl Medical Emergencies . Who to Call and When: Medical Emergencies: If at any time you feel your situation is an emergency, please call 911 immediately. . Non-Emergent Contact Non-Emergency issues call your: Primary Care Provider Call Non-Emergent contact if: you have any medication questions . . "Provider Documentation" section prepared by Adam Page. . VTE Core Measure Inpt VTE Proph given/why not?: Unfractionated heparin SQ [place] Drug Monitoring Program Search Results: no issues identified
[2017-03-31 11:29] VITALS: BP 134/68; PULSE 61; TEMP 36.4; O2SAT 96
--- NOTE | 2017-04-01 08:23 | Discharge Summary ---
Discharge Summary Date of Service Mar 31, 2017. Discharge Summary Admission Date: Mar 29, 2017 at 16:10 Discharge Date: Mar 31, 2017 Discharge Disposition: Home Principal Diagnosis: Chest pain Problems/Secondary Diagnoses: Near syncope Immunizations: Have You Had Influenza Vaccine: Yes Influenza Vaccine Date: Dec 26, 2014 History of Tetanus Vaccine?: Unknown History of Pneumococcal: Yes Pneumococcal Date: Dec 26, 2014 History of Hepatitis B Vaccine: Unknown Procedures: none Consultations: Cardiology Medication Reconciliation Continued Medications: Albuterol Hfa (Ventolin Hfa) 200 Puffs/02593 Mcg Aers 2-4 PUFFS INH Q6H PRN for Shortness of Breath, #1 INHALER Alprazolam (Alprazolam) 0.25 Mg Tab 0.25 MG PO TID PRN for Anxiety Aspirin (Aspirin Chewable) 81 Mg Chew 81 MG PO QPM Beclomethasone Dip (Qvar) 80 Mcg/Act Aer 40 MCG INH QAM Cholecalciferol (Vitamin D3) 1,000 Unit Tab 5000 INTER.UNIT PO QPM for 90 Days, TAB 3 Refills Dronedarone (Multaq) 400 Mg Tab 400 MG PO BID Furosemide (Lasix) 40 Mg Tab 40 MG PO QAM, TAB Hydrocodone/Acetaminophen 5MG/325MG ([place] 5MG/325MG) Tab 1 TABLET PO Q12 PRN for Pain, TAB Insulin Isophane (Human) (Humulin N Kwikpen) 100 Unit/Ml Inj 40 UNITS SC QPM, #1 Insulin Isophane (Human) (Humulin N Kwikpen) 100 Unit/Ml Inj 25 UNITS SQ QAM Ipratropium-Albuterol (Combivent Respimat) 1 Aer Aer 1 PUFFS INH QID Isosorbide Mononitrate Ext Rel (Imdur Ext Rel) 120 Mg Ertab 120 MG PO BID Levothyroxine Sodium (Levothyroxine Sodium) 100 Mcg Tab 100 MCG PO QAM Metformin HCl (Metformin HCl) 500 Mg Tab 1000 MG PO BID TAKE THIS MEDICATION WITH BREAKFAST AND EVENING MEAL Metoprolol Succinate (Metoprolol Succinate ER) 100 Mg Tabcr 100 MG PO BID Multiple Vitamins W/ Minerals (Multi Complete) 1 Cap Cap 1 TAB PO QPM Nitroglycerin (Nitrostat) 0.4 Mg Tab 0.4 MG UT UD PRN for Chest Pain, BTL PLACE ONE TABLET UNDER THE TONGUE EVERY 5 MINUTES FOR UP TO 3 DOSES IF NEEDED FOR CHEST PAIN Potassium Chloride Microencaps (Potassium Chloride Er) 10 Meq Tab 10 MEQ PO BID Ranolazine (Ranexa) 500 Mg Tab 500 MG PO Q12 Simvastatin (Simvastatin) 20 Mg Tab 20 MG PO HS Tamsulosin HCl (Tamsulosin HCl) 0.4 Mg Cap 0.4 MG PO HS Discharge Exam No issues overnight, ambulating independently, no further chest pain, no near syncope symptoms. Review of Systems: Constitutional: No fever, No chills, No sweats, No weight loss, No weakness , No fatigue, No problem reported Eyes: No worsening of vision, No eye pain, No redness, No discharge, No diplopia, No problem reported ENT: No hearing loss, No unusual epistaxis, No nasal symptoms, No sore throat, No tinnitus, No dental problems, No trouble swallowing, No problem reported Respiratory: No cough, No sputum, No wheezing, No shortness of breath, No dyspnea on exertion, No dyspnea at rest, No hemoptysis, No problem reported Cardiovascular: No chest pain, No orthopnea, No PND, No edema, No claudication, No palpitations, No problem reported Abdomen: No pain, No nausea, No vomiting, No diarrhea, No constipation, No GI bleeding, No problem reported Musculoskeletal: No joint pain, No muscle pain, No swelling, No calf pain, No problem reported Genitourinary - Male: No hematuria, No dysuria, No urinary frequency, No urinary urgency Neurologic: No memory loss, No paralysis, No weakness, No numbness/tingling , No vertigo, No balance problems, No problem reported Psychiatric: No depression symptoms, No anhedonism, No anxiety, No insomnia , No substance abuse, No problem reported Endocrine: No fatigue, No excessive thirst, No excessive urination, No problem reported Hematologic / Lymphatic: No abnormal bleeding/bruising, No clotting problems , No swollen lymph nodes, No night sweats, No problem reported Integumentary: No rash, No itch, No new/changing skin lesions, No color change, No bleeding, No problem reported Physical Exam: General Appearance: WD/WN, no apparent distress Eyes: normal inspection, EOMI, sclerae normal ENT: normal ENT inspection, hearing grossly normal, pharynx normal Neck: supple, no adenopathy, no JVD, trachea midline Respiratory/Chest: chest non-tender, lungs clear, normal breath sounds, no respiratory distress, no accessory muscle use Cardiovascular: regular rate, rhythm, no edema, no gallop, no JVD, no murmur , normal peripheral pulses Abdomen / GI: normal bowel sounds, non tender, soft, no organomegaly Extremities: normal inspection, no calf tenderness, normal capillary refill , no pedal edema, normal range of motion, pelvis stable Neurologic/Psychiatric: offset press assistant II-XII nml as tested, no motor/sensory deficits , alert, normal mood/affect, normal reflexes, oriented x 3 Skin: normal color, warm/dry, no rash Lymphatic: no adenopathy Hospital Course 76 y/o M Hx HTN, HPL, DM, obese, hypothyroid, paroxysmal flutter, systolic CHF, CAD. Developed central CP radiating to L arm which improved with NTG. Also states that he has been increasingly dyspneic with exertion. Denies N/V or diaphoresis accompanying his CP. When walking out of his house to attend the hospital, the pt became lightheaded and felt like he was going to pass out. His chest pain has resolved at the time of evaluation for admission. 1) CP - documented severe CAD - no arrhythmia, troponin negative x 3 NTG/Morphine PRN - cont ASA, B giancarlo, Statin, Ranexa no further work up per cardiology d/c home and follow up with PCP 2) CHF - appears euvolemic, will continue Lasix 40mg daily 3) Near syncope - transient episode of lightheadedness - unclear etiology no further episodes while admitted 4) HTN - cont 5) HPL - cont Statin therapy 6) DM - placed on SS with long-acting insulin BID 7) Paroxysmal flutter - sinus presently - does not employ anticoagulation - fall risk and previous GI bleed - cont Metoprolol, ASA 8) Hypothyroid - cont Synthroid Total Time Spent: Less than 30 minutes This includes examination of the patient, discharge planning, medication reconciliation, and communication with other providers. Discharge Instructions Please refer to the electronic Patient Visit Report (Discharge Instructions) for additional information. Follow-Up Dr. Nino in one week Additional Copies To RV. Ewing MD
== END 2017-03-31 13:45 | disposition home or self-care (01) ==
LOC: EDBD 14:16 → C.EDC 14:17 → C.2T 16:10 → ENRESERV 16:16 → C.MS4W 03-30 13:39
PROVIDERS: ADMIT Internal Medicine; ATTEND Internal Medicine
DX: R07.9 Chest pain, unspecified (principal); R55 Syncope and collapse; I25.10 Atherosclerotic heart disease of native coronary artery without angina pectoris; I11.0 Hypertensive heart disease with heart failure; I25.5 Ischemic cardiomyopathy; I48.92 Unspecified atrial flutter; E78.5 Hyperlipidemia, unspecified; E11.9 Type 2 diabetes mellitus without complications; F41.8 Other specified anxiety disorders; E03.9 Hypothyroidism, unspecified; E55.9 Vitamin D deficiency, unspecified; I50.22 Chronic systolic (congestive) heart failure; Z79.82 Long term (current) use of aspirin; Z79.4 Long term (current) use of insulin; Z79.899 Other long term (current) drug therapy; Z95.1 Presence of aortocoronary bypass graft

== ENCOUNTER → 2017-04-10 | Outpatient (CLI) | payer OTHER ==
[~2017-04-10] MED LIST changes: +CHOL1000 PO; +INSU1INJ23 SQ
[2017-04-10 12:21] LABS: BLOOD UREA NITROGEN 12 mg/dl (7-18); CREATININE 1.05 mg/dl (0.60-1.40)
== END | disposition home or self-care (01) ==
LOC: C.LAB1850 10:33
PROVIDERS: ATTEND Physician Assistant
DX: E11.21 Type 2 diabetes mellitus with diabetic nephropathy (principal); E11.29 Type 2 diabetes mellitus with other diabetic kidney complication

== ENCOUNTER → 2017-04-11 | Outpatient (CLI) | payer OTHER ==
[~2017-04-11] MED LIST changes: +OPTIRAY 320 IV PRN
--- NOTE | 2017-04-11 09:09 | DIAGNOSTIC IMAGING REPORT ---
(CHEST) THORAX WITH CT DOSE: 477.36 mGy.cm HISTORY: R09.89 Abnormal finding of lunglymph nodes E X0D E [id number] TECHNIQUE: Multiaxial CT images of the chest were performed following the intravenous administration of contrast. A dose lowering technique was utilized adhering to the principles of ALARA. COMPARISON: 09/28/2016 FINDINGS: Unchanged exam compared to the prior study. Mild parenchymal fibrotic change considered nonprogressive and stable. Mediastinal and hilar nodes unchanged in size as well as configuration and number. No evidence for progressive adenopathy. Moderate atherosclerotic change and ectasia thoracic aorta considered unchanged. Prior median sternotomy. Calcification of the coronary arterial vasculature. IMPRESSION: 1. Unchanged exam compared to the prior study. 2. Emphysematous and chronic interstitial change persists and are stable. 3. Moderate mediastinal and hilar adenopathy unchanged. 4. 1 year follow-up is suggested. The above report was generated using voice recognition software. It may contain grammatical, syntax or spelling errors. Electronically signed by: Ac Salinas M.D. 04/11/2017 9:07 AM Dictated Date/Time: 04/11/2017 9:02 AM
== END | disposition home or self-care (01) ==
LOC: C.CTS 08:28
PROVIDERS: ATTEND Physician Assistant
DX: R09.89 Other specified symptoms and signs involving the circulatory and respiratory systems (principal); J43.9 Emphysema, unspecified; J84.9 Interstitial pulmonary disease, unspecified; R59.0 Localized enlarged lymph nodes

== ENCOUNTER → 2017-04-13 | Outpatient (CLI) | payer OTHER ==
[~2017-04-13] MED LIST changes: -OPTIRAY 320 IV PRN
[2017-04-13 14:02] LABS: BLOOD UREA NITROGEN 13 mg/dl (7-18); CREATININE 1.08 mg/dl (0.60-1.40)
== END | disposition home or self-care (01) ==
LOC: C.LAB1850 11:35
PROVIDERS: ATTEND Physician Assistant
DX: R09.89 Other specified symptoms and signs involving the circulatory and respiratory systems (principal)

== ENCOUNTER → 2017-06-29 | Outpatient (CLI) | payer OTHER ==
--- NOTE | 2017-06-29 09:08 | DIAGNOSTIC IMAGING REPORT ---
R SHOULDER MIN 2 VIEWS CLINICAL HISTORY: RIGHT SHOULDER PAIN COMPARISON: None FINDINGS: Alignment of the right shoulder is anatomic. No fracture or suspicious lesion is identified. There is narrowing of the subacromial space. There is moderate to severe osteoarthritis of the right acromioclavicular and glenohumeral joints. IMPRESSION: 1. No acute fracture. 2. Moderate to severe osteoarthritis of the right acromioclavicular and glenohumeral joints with narrowing of the subacromial space. Electronically signed by: Lane Treviño M.D. 06/29/2017 9:06 AM Dictated Date/Time: 06/29/2017 9:05 AM
== END | disposition home or self-care (01) ==
LOC: C.RDSM 08:55
PROVIDERS: ATTEND Physician Assistant
DX: M19.011 Primary osteoarthritis, right shoulder (principal)

== ENCOUNTER 2017-10-05 16:01 | Observation (INO) | payer OTHER ==
[~2017-10-05] VITALS: Ht 172.7 cm; Wt 90.0 kg
[~2017-10-05 16:01] MED LIST changes: +ALPR0.254 PO; +BECL80AE7 INH; -DRN400 PO; -FLM4 PO; -GLC500 PO; -ISOS120T5 PO; -POTA10TA32 PO; -QVRINH80 INH; -RANO500T PO; -SIMV-151 PO; -TPRSR/100 PO; -XNX25 PO
[2017-10-05] MEDS ORDERED: ONDANSETRON INJ 2 MG/ML 2 ML VIAL IV STA (16:34)
[2017-10-05] MEDS ORDERED: SODIUM CHLORIDE 0.9% 1000ML 1,000 ML IV STA (16:34)
[2017-10-05 17:19] LABS: HEMATOCRIT 42.7 % (42-52); HEMOGLOBIN 14.6 g/dL (14.0-18.0); MEAN CELL VOLUME 97.3 fL (80-100); MEAN CORPUSCULAR HEMOGLOBIN 33.3 pg (25-34); MEAN CORPUSCULAR HGB CONC 34.2 g/dl (32-36); RED CELL DISTRIBUTION WIDTH CV 13.3 % (11.5-14.5); RED CELL DISTRIBUTION WIDTH SD 47.5 fL (36.4-46.3); WHITE BLOOD COUNT 7.61 K/uL (4.8-10.8)
[2017-10-05 17:41] LABS: ALBUMIN 3.5 gm/dl (3.4-5.0); CREATININE 1.17 mg/dl (0.60-1.40); POTASSIUM 3.8 mmol/L (3.5-5.1); TOTAL PROTEIN 7.9 gm/dl (6.4-8.2)
--- NOTE | 2017-10-05 17:41 | DIAGNOSTIC IMAGING REPORT ---
CHEST ONE VIEW PORTABLE HISTORY: Generalized abdominal pain. Diarrhea. Dizziness. Vomiting. COMPARISON: Chest 03/29/2017. FINDINGS: Mild interstitial thickening. This may be chronic. No focal lung consolidations to suggest pneumonia. No evidence for pulmonary edema. No pleural effusions. No pneumothorax. The heart remains mildly enlarged. There are poststernotomy changes. IMPRESSION: Stable mild cardiomegaly and mild interstitial thickening. No acute process within the chest. Electronically signed by: Gagan Guzmán M.D. 10/05/2017 5:40 PM Dictated Date/Time: 10/05/2017 5:38 PM
[2017-10-05] MEDS ORDERED: FLUT1INH14 INH (17:49)
[2017-10-05] MEDS ORDERED: OXGN (17:49)
[2017-10-05] MEDS ORDERED: ONDA4TAB9 PO (17:49)
[2017-10-05] MEDS ORDERED: ACET1TAB84 PO (17:49)
[2017-10-05] MEDS ORDERED: DRON400T PO (17:49)
[2017-10-05] MEDS ORDERED: CHOL1TAB42 PO (17:49)
[2017-10-05] MEDS ORDERED: UMEC1INH INH (17:49)
[2017-10-05 17:57] LABS: BASO % 0.1 %; BASO ABS # 0.01 K/uL (0-0.2); EOS % 1.7 %; EOS ABS # 0.13 K/uL (0-0.5); IG# 0.02 K/uL (0.00-0.02); LYMPH % 27.1 %; LYMPH ABS # 2.06 K/uL (1.2-3.4); MEAN PLATELET VOLUME 10.6 fL (7.4-10.4); MONO % 5.7 %; MONO ABS # 0.43 K/uL (0.11-0.59); NEUT % 65.1 %; NEUT ABS # 4.96 K/uL (1.4-6.5); PLATELET COUNT 96 K/uL (130-400)
[2017-10-05] MEDS ORDERED: GLUCOSE 10 TABS/TUBE PO PRN (21:30)
[2017-10-05] MEDS ORDERED: ALBUTEROL HFA 8 GM INHALER INH PRN (21:30)
[2017-10-05] MEDS ORDERED: ONDANSETRON INJ 2 MG/ML 2 ML VIAL IV PRN (21:30)
[2017-10-05] MEDS ORDERED: DC ALL PREVIOUSLY ORDERED DIABETES MEDS ONE (21:30)
[2017-10-05] MEDS ORDERED: GLUCOSE 40% GEL 15 GM TUBE PO PRN (21:30)
[2017-10-05] MEDS ORDERED: CARBOHYDRATES FOR HYPOGLYCEMIA PO PRN (21:30)
[2017-10-05] MEDS ORDERED: DEXTROSE 50% 50 ML SYR IV PRN (21:30)
[2017-10-05] MEDS ORDERED: ALUMINUM/MAGNESIUM/SIMETH (MAALOX MAX) 30 ML UDC PO PRN (21:30)
[2017-10-05] MEDS ORDERED: NITROGLYCERIN 0.4 MG SL PER TAB CHARGE UT PRN (21:30)
[2017-10-05] MEDS ORDERED: SODIUM CHLORIDE 0.9% 1000ML 1,000 ML IV SCH (21:30)
[2017-10-05] MEDS ORDERED: GLUCAGON FOR INJ 1 MG VIAL SQ PRN (21:30)
[2017-10-05] MEDS ORDERED: RANO500T PO (22:03)
[2017-10-05] MEDS ORDERED: GLC500 PO (22:03)
[2017-10-05] MEDS ORDERED: FLM4 PO (22:03)
[2017-10-05] MEDS ORDERED: TPRSR/100 PO (22:03)
[2017-10-05] MEDS ORDERED: DRN400 PO (22:03)
[2017-10-05] MEDS ORDERED: ISOS120T5 PO (22:03)
[2017-10-05] MEDS ORDERED: SIMV-151 PO (22:03)
[2017-10-05] MEDS ORDERED: POTA10TA32 PO (22:05)
[2017-10-05] MEDS ORDERED: RANOLAZINE 500 MG ER TAB PO ONE (22:16)
[2017-10-05] MEDS ORDERED: DRONEDARONE 400 MG TAB PO ONE (22:16)
[2017-10-05] MEDS ORDERED: ISOSORBIDE MONONITRATE 60 MG TABCR PO ONE (22:16)
[2017-10-05] MEDS ORDERED: METOPROLOL SUCC 50MG EXT REL TAB PO STA (22:16)
--- NOTE | 2017-10-05 22:16 | History and Physical ---
History & Physical Date & Time of Service: Oct 05, 2017 at 21:38 Chief Complaint: Dizzy, Diahrea, Vomit, Aches Primary Care Physician: RV. Ewing MD History of Present Illness Source: patient Mr. Alfonso is a very pleasant 77yo C male with multiple medical problems presenting with two weeks of diarrhea and 4 days of vomiting. Patient reports 3 -4 episodes of loose/watery diarrhea per day. No nocturnal symptoms. No fecal incontinence. No blood or mucus reported. No association with PO intake. Also with 4 days of non-bloody, non-bilious vomiting. Reports 2 episodes/day, not associated with PO intake. He also reports mild, crampy upper abdominal pain. Mild rectal pain. Additionally patient reports dizziness with positional changes and lightheadedness as well shaking chills. He also reports some diffuse chest tightness, SOB and decreased exercise tolerance. Also with fevers/chills and nightly sweats. No diet changes. No sick contacts. No recent travel. No changes in medications. No recent pic-nics or parties. Reports history of colitis 1 year ago. Had a colonoscopy on 11/19/16 which showed two sessile polyps as well as diverticuli. ER Course: [place] Past Medical/Surgical History Medical Problems: Hypertension Hyperlipidemia Diabetes Obesity Hypothyroidism Paroxysmal atrial flutter CHF Ambulatory dysfunction CAD Colitis 2L O2 at baseline Carotid stenosis Past Surgical History: CABG x 2 vessel PCI Left carotid endarterectomy Back Surgery Family History Diabetes mellitus FATHER FH: cirrhosis MOTHER Hypertension FATHER Stroke FATHER Social History Smoking Status: Former Smoker Smokeless Tobacco Use: No Alcohol Use: socially Drug Use: none Marital Status: Housing status: lives alone Occupational Status: retired Immunizations History of Influenza Vaccine: Yes Influenza Vaccine Date: Dec 26, 2014 History of Tetanus Vaccine?: Unknown History of Pneumococcal: Yes Pneumococcal Date: Dec 26, 2014 History of Hepatitis B Vaccine: Unknown Allergies Coded Allergies: Heparin (Verified Adverse Reaction, Severe, GI Bleeding, 03/31/17) pt told by PCP not to take blood thinners Warfarin (Verified Adverse Reaction, Unknown, GI BLEED, 03/31/17) Pt told by PCP not to take blood thinners Home Medications Scheduled Acetaminophen (Tylenol Arthritis Ext Rel), 1,350 MG PO AMPM Aspirin (Aspirin Chewable), 81 MG PO QPM Cholecalciferol (Vitamin D), 5,000 UNITS PO QPM Dronedarone (Multaq), 400 MG PO BID Fluticasone-Salmeterol (Airduo Respiclick 113/14 113-14 Mcg/Act), 1 DOSE INH DAILY Furosemide (Lasix), 40 MG PO QAM Home O2 Therapy (Oxygen), 2 LITERS NA CONTINOUS Insulin Isophane (Human) (Humulin N Kwikpen), 40 UNITS SC QPM Insulin Isophane (Human) (Humulin N Kwikpen), 25 UNITS SQ QAM Isosorbide Mononitrate Ext Rel (Imdur Ext Rel), 120 MG PO BID Levothyroxine Sodium (Levothyroxine Sodium), 100 MCG PO QAM Metformin HCl (Metformin HCl), 1,000 MG PO BID Metoprolol Succinate (Metoprolol Succinate ER), 100 MG PO BID Multiple Vitamins W/ Minerals (Multi Complete), 1 TAB PO QPM Ondansetron (Ondansetron HCl), 4 MG PO Q8 Potassium Chloride Microencaps (Potassium Chloride Er), 10 MEQ PO BID Ranolazine (Ranexa), 500 MG PO Q12 Simvastatin (Simvastatin), 20 MG PO HS Tamsulosin HCl (Tamsulosin HCl), 0.4 MG PO HS Umeclidinium [place] (Incruse Ellipta), 1 PUFF INH DAILY Scheduled PRN Albuterol Hfa (Ventolin Hfa), 2 PUFFS INH Q4 PRN for Shortness of Breath Alprazolam (Alprazolam), 0.25 MG PO TID PRN for Anxiety Nitroglycerin (Nitrostat), 0.4 MG UT UD PRN for Chest Pain Review of Systems Constitutional: + fever, + chills, + sweats, + weakness, + fatigue Eyes: No worsening of vision ENT: + hearing loss, No sore throat, No trouble swallowing Respiratory: + shortness of breath, + dyspnea on exertion, No cough Cardiovascular: + chest pain, No edema, No palpitations Abdomen: + pain, + nausea, + vomiting, + diarrhea, No GI bleeding Musculoskeletal: No joint pain, No muscle pain Genitourinary - Male: No hematuria Neurologic: No weakness Endocrine: + fatigue Hematologic / Lymphatic: + abnormal bleeding/bruising Integumentary: No rash Physical Exam Vital Signs Date Time Temp Pulse Resp B/P (MAP) Pulse Ox O2 Delivery O2 Flow Rate FiO2 10/05/17 21:20 80 16 186/93 97 Nasal Cannula 2.0 10/05/17 20:04 84 20 176/87 98 Nasal Cannula 2.0 10/05/17 18:58 78 18 165/81 98 Room Air 10/05/17 18:04 80 10/05/17 16:08 36.8 82 20 147/78 96 Nasal Cannula 2.0 General: NAD, pleasant, AA&O x 4 Skin: warm, dry, intact, no rashes/lesions HEENT: NC/AT, PERRL, anicteric sclera, conjunctiva without injection, bilateral hearing aides in place, MMM, no JVD, neck supple, left carotid bruit, no thyromegaly Heart: +S1/S2, regular, no m/r/g, well healed sternotomy scar Lungs: CTA, no rales/rhonchi/wheezes Abd: +BS, soft, diffusely tender with deep palpation, no rebound/guarding/ peritoneal signs, negative Cole's sign, +ventral and umbilical hernia, soft/ reducible Ext: warm, well perfused, no clubbing/cyanosis or edema Neuro: nonfocal Diagnostics Laboratory Results Results Past 24 Hours Test 10/05/17 17:10 10/05/17 20:42 10/05/17 21:22 Range/Units White Blood Count 7.61 4.8-10.8 K/uL Red Blood Count 4.39 4.7-6.1 M/uL Hemoglobin 14.6 14.0-18.0 g/dL Hematocrit 42.7 42-52 % Mean Corpuscular Volume 97.3 80-100 fL Mean Corpuscular Hemoglobin 33.3 25-34 pg Mean Corpuscular Hemoglobin Concent 34.2 32-36 g/dl Platelet Count 96 130-400 K/uL Mean Platelet Volume 10.6 7.4-10.4 fL Neutrophils (%) (Auto) 65.1 % Lymphocytes (%) (Auto) 27.1 % Monocytes (%) (Auto) 5.7 % Eosinophils (%) (Auto) 1.7 % Basophils (%) (Auto) 0.1 % Neutrophils # (Auto) 4.96 1.4-6.5 K/uL Lymphocytes # (Auto) 2.06 1.2-3.4 K/uL Monocytes # (Auto) 0.43 0.11-0.59 K/uL Eosinophils # (Auto) 0.13 0-0.5 K/uL Basophils # (Auto) 0.01 0-0.2 K/uL RDW Standard Deviation 47.5 36.4-46.3 fL RDW Coefficient of Variation 13.3 11.5-14.5 % Immature Granulocyte % (Auto) 0.3 % Immature Granulocyte # (Auto) 0.02 0.00-0.02 K/uL Platelet Estimate DECREASED Sodium Level 135 136-145 mmol/L Potassium Level 3.8 3.5-5.1 mmol/L Chloride Level 97 98-107 mmol/L Carbon Dioxide Level 27 21-32 mmol/L Anion Gap 11.0 3-11 mmol/L Blood Urea Nitrogen 13 7-18 mg/dl Creatinine 1.17 0.60-1.40 mg/dl Est Creatinine Clear Calc Drug Dose 59.1 ml/min Estimated GFR () 70.3 Estimated GFR (Non- 60.6 BUN/Creatinine Ratio 10.9 10-20 Random Glucose 174 70-99 mg/dl Calcium Level 9.0 8.5-10.1 mg/dl Total Bilirubin 1.7 0.2-1 mg/dl Direct Bilirubin 0.6 0-0.2 mg/dl Aspartate Amino Transf (AST/SGOT) 102 15-37 U/L Alanine Aminotransferase (ALT/SGPT) 90 12-78 U/L Alkaline Phosphatase 63 45-117 U/L Total Protein 7.9 6.4-8.2 gm/dl Albumin 3.5 3.4-5.0 gm/dl Lipase 150 73-393 U/L Urine Color YELLOW Urine Appearance CLEAR CLEAR Urine pH 7.0 4.5-7.5 Urine Specific [place] 1.016 1.000-1.030 Urine Protein NEG NEG Urine Glucose (UA) NEG NEG Urine Ketones 1+ NEG Urine Occult Blood NEG NEG Urine Nitrite NEG NEG Urine Bilirubin NEG NEG Urine Urobilinogen NEG NEG Urine Leukocyte Esterase NEG NEG Urine WBC (Auto) 0 0-5 /hpf Urine RBC (Auto) 0-4 0-4 /hpf Urine Hyaline Casts (Auto) 0 0-5 /lpf Urine Epithelial Cells (Auto) 0-5 0-5 /lpf Urine Bacteria (Auto) NEG NEG Microbiology Results 10/05/17 WBC Smear, Received Pending 10/05/17 Shiga Toxin Test, Received Pending 10/05/17 Stool Culture, Received Pending 10/05/17 C.difficile Toxin B Gene (PCR) - Final, Complete No C. difficile toxin B gene detected Diagnostic Radiology CHEST ONE VIEW PORTABLE HISTORY: Generalized abdominal pain. Diarrhea. Dizziness. Vomiting. COMPARISON: Chest 03/29/2017. FINDINGS: Mild interstitial thickening. This may be chronic. No focal lung consolidations to suggest pneumonia. No evidence for pulmonary edema. No pleural effusions. No pneumothorax. The heart remains mildly enlarged. There are poststernotomy changes. IMPRESSION: Stable mild cardiomegaly and mild interstitial thickening. No acute process within the chest. Electronically signed by: Gagan Guzmán M.D. 10/05/2017 5:40 PM Dictated Date/Time: 10/05/2017 5:38 PM EKG Normal sinus rhythm Inferior infarct , age undetermined T wave abnormality, consider anterior ischemia Abnormal ECG When compared with ECG of 29-MAR-2017 14:24, Inferior infarct is now Present Nonspecific T wave abnormality, improved in Inferior leads Nonspecific T wave abnormality, improved in Lateral leads Impression Assessment and Plan 77yo male with multiple medical problems presenting with two weeks of diarrhea, 4 days of nausea/vomiting. 1. Nausea/vomiting/diarrhea/abdominal pain - patient afebrile, hemodynamically stable, abdominal exam relatively benign. LFTs mildly elevated. No leukocytosis. Ddx to include gastroenteritis, colitis -Observation to medical unit -check sool culture, c. diff and fecal leukocytes -RUQUS -Low threshold for CT Abdomen -IVF with NSS at 100mL/hr x 1 liter -MOnitor electrolytes and replete as needed -Zofran PRN -Check orthostatic VX x 1 2. Abnormal LFTs -Check RUQUS -Repeat in AM 3. Chest pain/CADHistory of CHF - patient with significant CAD history s/p CABG x 2 vessel with subsequent graft stenosis. He follows with Dr. James, last seen three weeks ago. On optimum medical management, no further interventions planned. Patient states that his chest discomfort does not feel to be cardiac. He does not appear to be in acute decompensated CHF. -Troponin x 1 stat -Trend cardiac enzymes -Continue ASA, Statin (will hold if LFTs worsen), Metoprolol, Imdur -Hold Lasix in setting of volume contraction. 4. DM - blood sugar mildly elevated at 174. -Hold Metformin -Continue home regimen -Continue to monitor 5. HTN - Blood pressure elevated at present. Patient has not received his evening medications. -Continue Metoprolol, Imdur 6. PAF - presently in NSR -Continue Multaq, Metoprolol 7. HLP - continue statin 8. Hypothyroidism - continue Synthroid 9. F/E/N - NSS at 100mL/hr x 1 liter, monitor electrolytes and replete as needed. AHA/diabetic diet as tolerated 10. PPx - Lovenox for DVT prophylaxis 11. Code - DNR per discussion with patient 12. Dispo - observation to medical floor Resuscitation Status DNR VTE Prophylaxis Will order VTE Prophylaxis: Yes
[2017-10-05 22:25] LABS: PHOSPHORUS 2.9 mg/dl (2.5-4.9)
[2017-10-05 23:02] VITALS: BP 186/91; PULSE 93; TEMP 37; O2SAT 95
--- NOTE | 2017-10-05 23:17 | DIAGNOSTIC IMAGING REPORT ---
ABDOMINAL ULTRASOUND, RIGHT UPPER QUADRANT HISTORY: abnormal LFTs. COMPARISON: Abdomen and pelvis CT 10/14/2016. FINDINGS: Pancreas: The pancreatic tail is obscured by overlying bowel gas. The remaining portions of the pancreas are within normal limits. Liver: The liver is echogenic consistent with fatty change. The liver is mildly enlarged measuring 19 cm in length. No hepatic masses. Gallbladder: Mild gallbladder wall thickening measuring up to 3.8 mm. The gallbladder slightly contracted. There is a 6 mm nonmobile nodule within the gallbladder fundus. This favors a polyp. CBD: 3 mm. Right kidney: No hydronephrosis. IMPRESSION: 1. Mild diffuse gallbladder wall thickening. This is nonspecific but could be due to the contracted appearance of the gallbladder. 2. A 6 mm nonmobile nodule within the gallbladder consistent with a polyp. 3. Mild hepatomegaly demonstrating fatty change. Electronically signed by: Gagan Guzmán M.D. 10/05/2017 11:15 PM Dictated Date/Time: 10/05/2017 11:12 PM
--- NOTE | 2017-10-05 23:25 | EMERGENCY ROOM VISIT NOTE ---
History Report prepared by Eusebio: Catarino Tamez Under the Supervision of: Dr. Stanford Block D.O. First contact with patient: 16:29 Chief Complaint: DIZZY Stated Complaint: DIZZY, DIAHREA, VOMIT, ACHES History of Present Illness The patient is a 77 year old male who presents to the Emergency Room with complaints of dizziness, intermittent vomiting, and diarrhea starting about two weeks ago. He reports that he also feels a lack of coordination, pressure in his chest, and notes that his urine is dark. He currently rates his symptoms at a severity of 6/10. The patient states that the vomiting began about 1 week ago and that he has 1 to 2 episodes of it per day, although he has not vomited today or yesterday. He notes that the diarrhea began 2 weeks ago and that this occurs an average of 3 times per day, sometimes more. He states that he called his PCP with his symptoms, who instructed him to report to the ER. He notes that he has not taken anything for his diarrhea. He denies taking any recent antibiotics or being on blood thinners aside from baby aspirin. The patient states that he has reported to the ER several times in the past and lives by himself. Source of History: patient Onset: two weeks ago Position: chest, other (global) Symptom Intensity: 6/10 Quality: pressure (in chest), other (vomiting and diarrhea, dark urine) Timing: intermittent (vomiting and diarrhea) Review of Systems See HPI for pertinent positives & negatives. A total of 10 systems reviewed and were otherwise negative. Past Medical & Surgical Medical Problems: (1) Acute blood loss anemia (2) Atrial flutter (3) CAD (coronary artery disease) (4) CAD (coronary artery disease) of bypass graft (5) CAD (coronary artery disease), [place] coronary artery (6) Chest pain (7) CHF exacerbation (8) Colitis (9) Diabetes (10) Encounter for Hemoccult screening (11) Encounter for Hemoccult screening (12) Gastroenteritis (13) Heart disease (14) Hypertension (15) Near syncope (16) Unstable angina Family History Diabetes mellitus FATHER FH: cirrhosis MOTHER Hypertension FATHER Stroke FATHER Social History Smoking Status: Former Smoker Drug Use: none Marital Status: Housing Status: lives alone Occupation Status: retired Current/Historical Medications Scheduled Acetaminophen (Tylenol Arthritis Ext Rel), 1,350 MG PO AMPM Aspirin (Aspirin Chewable), 81 MG PO QPM Cholecalciferol (Vitamin D), 5,000 UNITS PO QPM Dronedarone (Multaq), 400 MG PO BID Fluticasone-Salmeterol (Airduo Respiclick 113/14 113-14 Mcg/Act), 1 DOSE INH DAILY Furosemide (Lasix), 40 MG PO QAM Home O2 Therapy (Oxygen), 2 LITERS NA CONTINOUS Insulin Isophane (Human) (Humulin N Kwikpen), 40 UNITS SC QPM Insulin Isophane (Human) (Humulin N Kwikpen), 25 UNITS SQ QAM Isosorbide Mononitrate Ext Rel (Imdur Ext Rel), 120 MG PO BID Levothyroxine Sodium (Levothyroxine Sodium), 100 MCG PO QAM Metformin HCl (Metformin HCl), 1,000 MG PO BID Metoprolol Succinate (Metoprolol Succinate ER), 100 MG PO BID Multiple Vitamins W/ Minerals (Multi Complete), 1 TAB PO QPM Ondansetron (Ondansetron HCl), 4 MG PO Q8 Potassium Chloride Microencaps (Potassium Chloride Er), 10 MEQ PO BID Ranolazine (Ranexa), 500 MG PO Q12 Simvastatin (Simvastatin), 20 MG PO HS Tamsulosin HCl (Tamsulosin HCl), 0.4 MG PO HS Umeclidinium [place] (Incruse Ellipta), 1 PUFF INH DAILY Scheduled PRN Albuterol Hfa (Ventolin Hfa), 2 PUFFS INH Q4 PRN for Shortness of Breath Alprazolam (Alprazolam), 0.25 MG PO TID PRN for Anxiety Nitroglycerin (Nitrostat), 0.4 MG UT UD PRN for Chest Pain Allergies Coded Allergies: Heparin (Verified Adverse Reaction, Severe, GI Bleeding, 03/31/17) pt told by PCP not to take blood thinners Warfarin (Verified Adverse Reaction, Unknown, GI BLEED, 03/31/17) Pt told by PCP not to take blood thinners Physical Exam Vital Signs Date Time Temp Pulse Resp B/P (MAP) Pulse Ox O2 Delivery O2 Flow Rate FiO2 10/05/17 21:20 80 16 186/93 97 Nasal Cannula 2.0 10/05/17 20:04 84 20 176/87 98 Nasal Cannula 2.0 10/05/17 18:58 78 18 165/81 98 Room Air 10/05/17 18:04 80 10/05/17 16:08 36.8 82 20 147/78 96 Nasal Cannula 2.0 Physical Exam CONSTITUTIONAL/VITAL SIGNS: Reviewed / noted above. GENERAL: Non-toxic in appearance. INTEGUMENTARY: Warm, dry, and [place]. HEAD: Normocephalic. EYES: without scleral icterus or trauma. ENT/OROPHARYNX: clear and moist. LYMPHADENOPATHY/NECK: Is supple without lymphadenopathy or meningismus. RESPIRATORY: Lungs clear and equal. CARDIOVASCULAR: Regular rate and rhythm. GI/ABDOMEN: Soft and nontender. No organomegaly or pulsatile mass. No rebound or guarding. Normal bowel sounds. EXTREMITIES: Warm and well perfused. BACK: No CVA tenderness. NEUROLOGICAL: Intact without focal deficits. PSYCHIATRIC: normal affect. MUSCULOSKELETAL: Normally developed with good muscle tone. Medical Decision & Procedures ER Provider Diagnostic Interpretation: Radiology results as stated below per my review and radiologist interpretation: CHEST ONE VIEW PORTABLE HISTORY: Generalized abdominal pain. Diarrhea. Dizziness. Vomiting. COMPARISON: Chest 03/29/2017. FINDINGS: Mild interstitial thickening. This may be chronic. No focal lung consolidations to suggest pneumonia. No evidence for pulmonary edema. No pleural effusions. No pneumothorax. The heart remains mildly enlarged. There are poststernotomy changes. IMPRESSION: Stable mild cardiomegaly and mild interstitial thickening. No acute process within the chest. Electronically signed by: Gagan Guzmán M.D. 10/05/2017 5:40 PM Laboratory Results 10/05/17 17:10 Red Blood Count 4.39, Mean Corpuscular Volume 97.3, Mean Corpuscular Hemoglobin 33.3, Mean Corpuscular Hemoglobin Concent 34.2, Mean Platelet Volume 10.6, Neutrophils (%) (Auto) 65.1, Lymphocytes (%) (Auto) 27.1, Monocytes (%) (Auto) 5.7, Eosinophils (%) (Auto) 1.7, Basophils (%) (Auto) 0.1, Neutrophils # (Auto) 4.96, Lymphocytes # (Auto) 2.06, Monocytes # (Auto) 0.43, Eosinophils # (Auto) 0.13, Basophils # (Auto) 0.01 10/05/17 17:10 Test 7/20/18 17:10 10/05/17 20:42 White Blood Count 7.61 K/uL (4.8-10.8) Red Blood Count 4.39 M/uL (4.7-6.1) Hemoglobin 14.6 g/dL (14.0-18.0) Hematocrit 42.7 % (42-52) Mean Corpuscular Volume 97.3 fL (80-100) Mean Corpuscular Hemoglobin 33.3 pg (25-34) Mean Corpuscular Hemoglobin Concent 34.2 g/dl (32-36) Platelet Count 96 K/uL (130-400) Mean Platelet Volume 10.6 fL (7.4-10.4) Neutrophils (%) (Auto) 65.1 % Lymphocytes (%) (Auto) 27.1 % Monocytes (%) (Auto) 5.7 % Eosinophils (%) (Auto) 1.7 % Basophils (%) (Auto) 0.1 % Neutrophils # (Auto) 4.96 K/uL (1.4-6.5) Lymphocytes # (Auto) 2.06 K/uL (1.2-3.4) Monocytes # (Auto) 0.43 K/uL (0.11-0.59) Eosinophils # (Auto) 0.13 K/uL (0-0.5) Basophils # (Auto) 0.01 K/uL (0-0.2) RDW Standard Deviation 47.5 fL (36.4-46.3) RDW Coefficient of Variation 13.3 % (11.5-14.5) Immature Granulocyte % (Auto) 0.3 % Immature Granulocyte # (Auto) 0.02 K/uL (0.00-0.02) Platelet Estimate DECREASED Anion Gap 11.0 mmol/L (3-11) Est Creatinine Clear Calc Drug Dose 59.1 ml/min Estimated GFR () 70.3 Estimated GFR (Non- 60.6 BUN/Creatinine Ratio 10.9 (10-20) Calcium Level 9.0 mg/dl (8.5-10.1) Phosphorus Level 2.9 mg/dl (2.5-4.9) Magnesium Level 1.6 mg/dl (1.8-2.4) Total Bilirubin 1.7 mg/dl (0.2-1) Direct Bilirubin 0.6 mg/dl (0-0.2) Aspartate Amino Transf (AST/SGOT) 102 U/L (15-37) Alanine Aminotransferase (ALT/SGPT) 90 U/L (12-78) Alkaline Phosphatase 63 U/L (45-117) Total Protein 7.9 gm/dl (6.4-8.2) Albumin 3.5 gm/dl (3.4-5.0) Lipase 150 U/L (73-393) Urine Color YELLOW Urine Appearance CLEAR (CLEAR) Urine pH 7.0 (4.5-7.5) Urine Specific [place] 1.016 (1.000-1.030) Urine Protein NEG (NEG) Urine Glucose (UA) NEG (NEG) Urine Ketones 1+ (NEG) Urine Occult Blood NEG (NEG) Urine Nitrite NEG (NEG) Urine Bilirubin NEG (NEG) Urine Urobilinogen NEG (NEG) Urine Leukocyte Esterase NEG (NEG) Urine WBC (Auto) 0 /hpf (0-5) Urine RBC (Auto) 0-4 /hpf (0-4) Urine Hyaline Casts (Auto) 0 /lpf (0-5) Urine Epithelial Cells (Auto) 0-5 /lpf (0-5) Urine Bacteria (Auto) NEG (NEG) Laboratory results as stated above per my review. Medications Administered Medications (Trade) Dose Ordered Sig/Eladio Route Start Time Stop Time Status Last Admin Dose Admin Sodium Chloride 1,000 ml @ 999 mls/hr Q1H1M STAT IV 10/05/17 16:34 10/05/17 17:34 DC 10/05/17 17:47 999 MLS/HR ECG Per My Interpretation Indication: vomiting Rate (beats per minute): 73 Rhythm: normal sinus Findings: T-wave inversion (Anterior) Comparison ECG Date: 03/29/2017 Change: no significant change ED Course 1630: Previous medical records were reviewed. The patient was evaluated in room B8. A complete history and physical examination was performed. 1634: Ordered Zofran 4 mg IV, Sodium Chloride 1000 mls @ 999 mls/hr IV 2014: I spoke with Dr. Thurston - [facility] Hospitalist. She will reevaluate the patient for admission. Medical Decision Differential diagnosis: Etiologies such as gastroenteritis, food borne illness, infections, appendicitis , diverticulitis, inflammatory bowel disease, obstruction, GI bleed, biliary pathology, as well as others were entertained. This is a 77-year-old male who presents to the ED with a chief complaint of vomiting and diarrhea. The patient reports that he has had diarrhea for the past 2 weeks. He also reports vomiting for 1 week. He is having several episodes of diarrhea a day. The vomiting subsided yesterday. He feels weak, dizzy and dehydrated. He is also reported some chest discomfort. Patient's physical exam is noted above. He has some generalized weakness but no focal deficits. Laboratory studies reveal a normal CBC. Chemistry panel was unremarkable. He does have a transaminitis and elevated bilirubin. His magnesium is also low. Patient feels weak and unsteady. He is concerned about going home as he lives alone. I spoke with the hospitalist, who will see him for further inpatient evaluation. Medication Reconcilliation Current Medication List: was personally reviewed by me Blood Pressure Screening Patient's blood pressure: Elevated blood pressure referred to hospitalist Consults Time Called: 2006 Consulting Physician: Dr. Bertarnd Nevarez [facility] Hospitalist Returned Call: [address] Bertrand Nevarez [facility] Hospitalist. She will reevaluate the patient for admission. Impression Primary Impression: Vomiting and diarrhea Additional Impressions: Precordial chest pain Weakness Transaminitis Elevated bilirubin Scribe Attestation The scribe's documentation has been prepared under my direction and personally reviewed by me in its entirety. I confirm that the note above accurately reflects all work, treatment, procedures, and medical decision making performed by me. Departure Information Dispostion Being Evaluated By Hospitalist Referrals RV. Ewing MD (PCP) Patient Instructions My [facility] Problem Qualifiers
[2017-10-05] MEDS ORDERED: IV FLUIDS COMPLETED PRN (23:30)
[2017-10-06] VITALS (10 sets, daily range): BP systolic 130–168; BP diastolic 69–89; PULSE 54–91; TEMP 36.2–36.8; O2SAT 96–98; Ht 172.7 cm; Wt 90.0 kg
[2017-10-06] MEDS: INSULIN ASPART 100 UNITS/ML 3 ML PEN SC SCH ×5 (00:30→20:12)
[2017-10-06] MEDS: ACETAMINOPHEN 325 MG TAB PO PRN ×3 (00:35→20:19)
[2017-10-06] MEDS: ALPRAZOLAM 0.25 MG TAB PO PRN ×3 (00:35→20:18)
[2017-10-06] MEDS: INSULIN HUMAN NPH SC SCH ×2 (02:26→17:35)
[2017-10-06 06:09] LABS: HEMATOCRIT 39.3 % (42-52); HEMOGLOBIN 13.3 g/dL (14.0-18.0); MEAN CORPUSCULAR HEMOGLOBIN 33.2 pg (25-34); MEAN CORPUSCULAR HGB CONC 33.8 g/dl (32-36); RED CELL DISTRIBUTION WIDTH CV 13.1 % (11.5-14.5); RED CELL DISTRIBUTION WIDTH SD 46.8 fL (36.4-46.3); WHITE BLOOD COUNT 5.36 K/uL (4.8-10.8)
[2017-10-06 06:12] LABS: MEAN PLATELET VOLUME 10.4 fL (7.4-10.4); PLATELET COUNT 77 K/uL (130-400)
[2017-10-06] MEDS: LEVOTHYROXINE 100 MCG TAB PO SCH (06:18)
[2017-10-06 06:44] LABS: ALBUMIN 2.9 gm/dl (3.4-5.0); ALKALINE PHOSPHATASE 46 U/L (45-117); ALT/SGPT 66 U/L (12-78); BLOOD UREA NITROGEN 11 mg/dl (7-18); CALCIUM 8.1 mg/dl (8.5-10.1); CARBON DIOXIDE 30 mmol/L (21-32); CREATININE 0.87 mg/dl (0.60-1.40); GLUCOSE 169 mg/dl (70-99); SODIUM 139 mmol/L (136-145); TOTAL PROTEIN 6.5 gm/dl (6.4-8.2)
[2017-10-06 07:01] LABS: INR 1.1 (0.9-1.1)
[2017-10-06 07:07] LABS: BASO % 0.2 %; BASO ABS # 0.01 K/uL (0-0.2); EOS % 4.1 %; EOS ABS # 0.22 K/uL (0-0.5); IG# 0.01 K/uL (0.00-0.02); LYMPH % 38.8 %; LYMPH ABS # 2.08 K/uL (1.2-3.4); MONO % 7.1 %; MONO ABS # 0.38 K/uL (0.11-0.59); NEUT % 49.6 %; NEUT ABS # 2.66 K/uL (1.4-6.5)
[2017-10-06 07:49] LABS: POTASSIUM 3.3 mmol/L (3.5-5.1)
[2017-10-06] MEDS: DRONEDARONE 400 MG TAB PO SCH ×2 (08:53→20:14)
[2017-10-06] MEDS: ISOSORBIDE MONONITRATE 60 MG TABCR PO SCH ×2 (08:53→20:15)
[2017-10-06] MEDS: POTASSIUM CHLORIDE 10 MEQ TABCR PO SCH ×2 (08:53→20:14)
[2017-10-06] MEDS: RANOLAZINE 500 MG ER TAB PO SCH ×2 (08:54→20:12)
[2017-10-06] MEDS ORDERED: ENOXAPARIN 40 MG/0.4 ML SYR SQ SCH (09:00)
[2017-10-06] MEDS: INSULIN HUMAN NPH SQ SCH (09:05)
[2017-10-06] MEDS: [UNRECOGNIZED DRUG - OTHER] SCH ×2 (09:07→14:56)
[2017-10-06] MEDS: METOPROLOL SUCC 50MG EXT REL TAB PO SCH ×2 (10:16→20:13)
[2017-10-06] MEDS ORDERED: POTASSIUM CHLORIDE 20 MEQ TABCR PO ONE (11:00)
[2017-10-06] MEDS ORDERED: POTASSIUM CHLORIDE 20 MEQ TABCR PO SCH (20:00)
[2017-10-06] MEDS ORDERED: SIMVASTATIN 20 MG TAB PO SCH (21:00)
[2017-10-06] MEDS ORDERED: TAMSULOSIN HCL 0.4 MG CAP PO SCH (21:00)
[2017-10-06] MEDS ORDERED: CEROVITE ADV FORMULA TAB PO SCH (21:00)
[2017-10-06] MEDS ORDERED: ASPIRIN 81 MG CHEW PO SCH (21:00)
[2017-10-07] MEDS: LEVOTHYROXINE 100 MCG TAB PO SCH (05:25)
[2017-10-07 07:09] LABS: CALCIUM 8.9 mg/dl (8.5-10.1); CREATININE 0.87 mg/dl (0.60-1.40)
[2017-10-07 07:18] VITALS: BP 175/79; PULSE 62; TEMP 36.5; O2SAT 96
--- NOTE | 2017-10-07 07:29 | Progress Note ---
Subjective Date of Service: Oct 06, 2017. Subjective Pt evaluation today including: conversation w/ patient, physical exam 77 yo male reports feeling better today. He still feels somewhat fatigued with low energy and he has some abdominal pain in the RUQ. Pain only occurs on palpation. Patient states he has nausea, but has not been vomiting. Patient states he does not have fever, chills, nausea, vomiting. Problem List Medical Problems: (1) Acute bronchitis Status: Acute (2) Chest pain, precordial Status: Acute (3) Chronic anemia Status: Acute (4) Dizziness Status: Acute (5) Dyspnea Status: Acute (6) Elevated bilirubin Status: Acute (7) Facial paresthesia Status: Acute (8) Lactic acidosis Status: Acute (9) Precordial chest pain Status: Acute (10) Precordial chest pain Status: Acute (11) Precordial chest pain Status: Acute (12) SOB (shortness of breath) Status: Acute (13) Transaminitis Status: Acute (14) Vomiting and diarrhea Status: Acute (15) Vomiting and diarrhea Status: Acute (16) Weakness Status: Acute Review of Systems Constitutional: No fever, No chills Eyes: No worsening of vision ENT: No hearing loss Respiratory: No cough Cardiac: No chest pain Abdomen: + pain, + nausea, No vomiting Male : No dysuria Neurologic: No memory loss Psychiatric: No depression symptoms Heme: No abnormal bleeding/bruising Endo: No fatigue Skin: No rash All Other Systems: Reviewed and Negative Objective Vital Signs Date Time Temp Pulse Resp B/P (MAP) Pulse Ox O2 Delivery O2 Flow Rate FiO2 10/07/17 07:18 36.5 62 18 175/79 (111) 96 10/07/17 00:01 Nasal Cannula 2.0 10/06/17 23:37 36.2 54 20 141/71 (94) 97 Room Air 10/06/17 20:07 60 168/89 (115) 10/06/17 16:05 65 153/77 (102) 10/06/17 16:04 63 165/83 (110) 10/06/17 16:00 Nasal Cannula 2.0 10/06/17 15:41 72 130/69 (89) 10/06/17 15:40 61 151/69 (96) 10/06/17 15:40 71 134/73 (93) 10/06/17 15:07 36.6 58 20 135/69 (91) 96 10/06/17 11:17 78 161/83 (109) 10/06/17 07:57 Nasal Cannula 2.0 Physical Exam Comments: General: NAD, pleasant, AA&O x 4 Skin: warm, dry, intact, no rashes/lesions HEENT: NC/AT, PERRL, bilateral hearing aides in place, MMM, no JVD, neck supple , left carotid bruit, no thyromegaly Heart: +S1/S2, regular, no m/r/g, well healed sternotomy scar Lungs: CTA, no rales/rhonchi/wheezes Abd: +BS, soft, tenderness to RUQ with deep palpation, no rebound/guarding/ peritoneal signs, negative Cole's sign, +ventral and umbilical hernia, soft/ reducible Ext: warm, well perfused, no clubbing/cyanosis or edema Neuro: nonfocal Laboratory Results Last 24 Hours Test 10/06/17 07:33 10/06/17 11:47 10/06/17 15:14 10/06/17 16:19 Bedside Glucose 154 mg/dl 165 mg/dl 124 mg/dl Troponin I < 0.015 ng/ml Test 10/06/17 19:56 10/07/17 05:54 10/07/17 07:14 10/07/17 07:26 Bedside Glucose 97 mg/dl 111 mg/dl Sodium Level 139 mmol/L Potassium Level mmol/L Chloride Level 103 mmol/L Carbon Dioxide Level 32 mmol/L Anion Gap 4.0 mmol/L Blood Urea Nitrogen 12 mg/dl Creatinine 0.87 mg/dl Est Creatinine Clear Calc Drug Dose 79.9 ml/min Estimated GFR () 97.8 Estimated GFR (Non- 84.4 BUN/Creatinine Ratio 13.4 Random Glucose 110 mg/dl Calcium Level 8.9 mg/dl Assessment and Plan 77yo male with multiple medical problems presenting with two weeks of diarrhea, 4 days of nausea/vomiting. 1. Nausea/vomiting/diarrhea/abdominal pain - patient afebrile, hemodynamically stable, abdominal exam relatively benign. LFTs mildly elevated. No leukocytosis. Ddx to include gastroenteritis, colitis -Observation to medical unit -awaiting stool studies -RUQUS: was negative -IVF with NSS at 100mL/hr x 1 liter -MOnitor electrolytes and replete as needed -Zofran PRN -Check orthostatic VX x 1 which was negative. -Unsure of etiology of his nausea. -Diarrhea was improved. LFT was trending better as well. -Pain is also decreased. Will cotninue to monitor, if he improves clinically, will refer to GI as an outpatient. 2. Abnormal LFTs -Check RUQUS -Repeat in AM 3. Chest pain/CADHistory of CHF - patient with significant CAD history s/p CABG x 2 vessel with subsequent graft stenosis. He follows with Dr. James, last seen three weeks ago. On optimum medical management, no further interventions planned. Patient states that his chest discomfort does not feel to be cardiac. He does not appear to be in acute decompensated CHF. -Troponin x 1 negative -Trend cardiac enzymes -Continue ASA, Statin (will hold if LFTs worsen), Metoprolol, Imdur -Hold Lasix in setting of volume contraction. 4. DM - blood sugar mildly elevated at 174. -Hold Metformin -Continue home regimen -Continue to monitor 5. HTN - Blood pressure elevated at present. Patient has not received his evening medications. -Continue Metoprolol, Imdur 6. PAF - presently in NSR -Continue Multaq, Metoprolol 7. HLP - continue statin 8. Hypothyroidism - continue Synthroid 9. F/E/N - NSS at 100mL/hr x 1 liter, monitor electrolytes and replete as needed. AHA/diabetic diet as tolerated 10. PPx - Lovenox for DVT prophylaxis 11. Code - DNR per discussion with patient 12. Dispo - observation to medical floor Continued [facility] stay due to: other Discharge planning: uncertain
[2017-10-07 07:55] LABS: POTASSIUM 3.3 mmol/L (3.5-5.1)
[2017-10-07] MEDS: DRONEDARONE 400 MG TAB PO SCH (07:57)
[2017-10-07] MEDS: ISOSORBIDE MONONITRATE 60 MG TABCR PO SCH (07:57)
[2017-10-07] MEDS: POTASSIUM CHLORIDE 10 MEQ TABCR PO SCH (07:57)
[2017-10-07] MEDS: RANOLAZINE 500 MG ER TAB PO SCH (07:58)
[2017-10-07] MEDS: METOPROLOL SUCC 50MG EXT REL TAB PO SCH (07:58)
[2017-10-07] MEDS: ALPRAZOLAM 0.25 MG TAB PO PRN (08:00)
[2017-10-07] MEDS: ACETAMINOPHEN 325 MG TAB PO PRN (08:01)
[2017-10-07 08:03] LABS: ALBUMIN 3.5 gm/dl (3.4-5.0); TOTAL PROTEIN 7.7 gm/dl (6.4-8.2)
[2017-10-07] MEDS: INSULIN HUMAN NPH SQ SCH (08:06)
[2017-10-07] MEDS: INSULIN ASPART 100 UNITS/ML 3 ML PEN SC SCH ×2 (08:06→12:47)
[2017-10-07] MEDS: [UNRECOGNIZED DRUG - OTHER] SCH ×3 (08:08→14:55)
--- NOTE | 2017-10-07 12:56 | Discharge Instructions ---
Discharge Instructions Date of Service Oct 07, 2017. Admission Reason for Admission: Gastroenteritis Discharge Discharge Diagnosis / Problem: Gatroenteritis Discharge Goals Goal(s): Decrease discomfort, Improve function Activity Recommendations Activity Limitations: resume your previous activity . Instructions / Follow-Up Instructions / Follow-Up Patient was observed for 48 hours and improved on his own. Will recommend followup with PCP in about 1 week. Will refer to GI specialist for followup in 204 weeks. Current Hospital Diet Patient's current hospital diet: Regular Diet, AHA Diet (Heart Healthy), Diabetes Type 2 Diet Discharge Diet Recommended Diet: Regular Diet, AHA Diet (Heart Healthy), Diabetes Type 2 Diet Pending Studies Studies pending at discharge: no Medical Emergencies . Who to Call and When: Medical Emergencies: If at any time you feel your situation is an emergency, please call 911 immediately. . Non-Emergent Contact Non-Emergency issues call your: Primary Care Provider Call Non-Emergent contact if: you have any medication questions . . "Provider Documentation" section prepared by Nathaniel Marshall. .
[2017-10-07] MEDS ORDERED: POTASSIUM CHLORIDE 20 MEQ TABCR PO STA (13:01)
[2017-10-07 13:10] VITALS: BP 175/79; PULSE 62; TEMP 36.5; O2SAT 96
--- NOTE | 2017-10-13 11:42 | Discharge Summary ---
Discharge Summary Date of Service Oct 07, 2017. Discharge Summary Admission Date: Oct 05, 2017 at 21:37 Discharge Date: Oct 07, 2017 Discharge Disposition: Home with services Principal Diagnosis: Gastroenteritis Immunizations: Have You Had Influenza Vaccine: Yes Influenza Vaccine Date: Dec 26, 2014 History of Tetanus Vaccine?: Unknown History of Pneumococcal: Yes Pneumococcal Date: Dec 26, 2014 History of Hepatitis B Vaccine: Unknown Medication Reconciliation Continued Medications: Acetaminophen (Tylenol Arthritis Ext Rel) 650 Mg Cplt 1350 MG PO AMPM, CAP Albuterol Hfa (Ventolin Hfa) 200 Puffs/95275 Mcg Aers 2 PUFFS INH Q4 PRN for Shortness of Breath, #1 INHALER Alprazolam (Alprazolam) 0.25 Mg Tab 0.25 MG PO TID PRN for Anxiety Aspirin (Aspirin Chewable) 81 Mg Chew 81 MG PO QPM Cholecalciferol (Vitamin D) 5,000 Unit Tab 5000 UNITS PO QPM Dronedarone (Multaq) 400 Mg Tab 400 MG PO BID Fluticasone-Salmeterol (Airduo Respiclick 113/14 113-14 Mcg/Act) 1 Inh Inh 1 DOSE INH DAILY Furosemide (Lasix) 40 Mg Tab 40 MG PO QAM, TAB Home O2 Therapy (Oxygen) Gas 2 LITERS NA CONTINOUS, BTL Insulin Isophane (Human) (Humulin N Kwikpen) 100 Unit/Ml Inj 40 UNITS SC QPM, #1 Insulin Isophane (Human) (Humulin N Kwikpen) 100 Unit/Ml Inj 25 UNITS SQ QAM Isosorbide Mononitrate Ext Rel (Imdur Ext Rel) 120 Mg Ertab 120 MG PO BID Levothyroxine Sodium (Levothyroxine Sodium) 100 Mcg Tab 100 MCG PO QAM Metformin HCl (Metformin HCl) 500 Mg Tab 1000 MG PO BID TAKE THIS MEDICATION WITH BREAKFAST AND EVENING MEAL Metoprolol Succinate (Metoprolol Succinate ER) 100 Mg Tabcr 100 MG PO BID Multiple Vitamins W/ Minerals (Multi Complete) 1 Cap Cap 1 TAB PO QPM Nitroglycerin (Nitrostat) 0.4 Mg Tab 0.4 MG UT UD PRN for Chest Pain, BTL PLACE ONE TABLET UNDER THE TONGUE EVERY 5 MINUTES FOR UP TO 3 DOSES IF NEEDED FOR CHEST PAIN Ondansetron (Ondansetron HCl) 4 Mg Tab 4 MG PO Q8 Potassium Chloride Microencaps (Potassium Chloride Er) 10 Meq Tab 10 MEQ PO BID Ranolazine (Ranexa) 500 Mg Tab 500 MG PO Q12 Simvastatin (Simvastatin) 20 Mg Tab 20 MG PO HS Tamsulosin HCl (Tamsulosin HCl) 0.4 Mg Cap 0.4 MG PO HS Umeclidinium [place] (Incruse Ellipta) 62.5 Mcg/Inh Inh 1 PUFF INH DAILY Discharge Exam Review of Systems Constitutional: No fever, No chills Eyes: No worsening of vision ENT: No hearing loss Respiratory: No cough Cardiac: No chest pain Abdomen: No vomiting, no pain, no nausea. Male : No dysuria Neurologic: No memory loss Psychiatric: No depression symptoms Heme: No abnormal bleeding/bruising Endo: No fatigue Skin: No rash All Other Systems: Reviewed and Negative Physical Exam General: NAD, pleasant, AA&O x 4 Skin: warm, dry, intact, no rashes/lesions HEENT: NC/AT, PERRL, bilateral hearing aides in place, MMM, no JVD, neck supple , left carotid bruit, no thyromegaly Heart: +S1/S2, regular, no m/r/g, well healed sternotomy scar Lungs: CTA, no rales/rhonchi/wheezes Abd: +BS, soft, no tenderness to RUQ, no rebound/guarding/peritoneal signs, negative Cole's sign, +ventral and umbilical hernia, soft/reducible Ext: warm, well perfused, no clubbing/cyanosis or edema Neuro: nonfocal Hospital Course 77yo male with multiple medical problems presenting with two weeks of diarrhea, 4 days of nausea/vomiting. 1. Nausea/vomiting/diarrhea/abdominal pain - patient afebrile, hemodynamically stable, abdominal exam relatively benign. LFTs mildly elevated. No leukocytosis. Ddx to include gastroenteritis, colitis -Observation to medical unit -Stool studies were negative -RUQUS: was negative -Patient received about 1 liter of NSS. -Checked orthostatic VX x 1 which was negative. -Unsure of etiology of his nausea. -Diarrhea was improved. -Symptoms improved on day of discharge. Will recommend PCP to followup with Labs at discharge 2. Abnormal LFTs -remained ildly elevated 3. Chest pain/CADHistory of CHF - patient with significant CAD history s/p CABG x 2 vessel with subsequent graft stenosis. He follows with Dr. James, last seen three weeks ago. On optimum medical management, no further interventions planned. Patient states that his chest discomfort does not feel to be cardiac. He does not appear to be in acute decompensated CHF. -Troponin x 3 negative -Continue ASA, Statin (will hold if LFTs worsen), Metoprolol, Imdur -Held Lasix in setting of volume contraction during hospital stay 4. DM - blood sugar mildly elevated at 174. -Hold Metformin -Continue home regimen -Continue to monitor 5. HTN - Blood pressure elevated at present. Patient has not received his evening medications. -Continue Metoprolol, Imdur 6. PAF - presently in NSR -Continue Multaq, Metoprolol 7. HLP - continue statin 8. Hypothyroidism - continue Synthroid 9. PPx - Lovenox for DVT prophylaxis 10. Code - DNR per discussion with patient Total Time Spent: Greater than 30 minutes This includes examination of the patient, discharge planning, medication reconciliation, and communication with other providers. Discharge Instructions Please refer to the electronic Patient Visit Report (Discharge Instructions) for additional information. Follow-Up Patient was observed for 48 hours and improved on his own. Will recommend followup with PCP in about 1 week. Will refer to GI specialist for followup in 2-4 weeks. Additional Copies To RV. Ewing MD
== END 2017-10-07 15:40 | disposition home or self-care (01) ==
LOC: C.EDB 16:02 → C.4E 21:37 → ENRESERV 21:56 → EDBEDREQ 22:36
PROVIDERS: ADMIT Internal Medicine; ATTEND Internal Medicine Sports Medicine
DX: K52.9 Noninfective gastroenteritis and colitis, unspecified (principal); R42 Dizziness and giddiness; R19.7 Diarrhea, unspecified; R11.10 Vomiting, unspecified; R07.2 Precordial pain; I48.0 Paroxysmal atrial fibrillation; I25.10 Atherosclerotic heart disease of native coronary artery without angina pectoris; E11.9 Type 2 diabetes mellitus without complications; E03.9 Hypothyroidism, unspecified; I10 Essential (primary) hypertension; I50.9 Heart failure, unspecified; Z82.49 Family history of ischemic heart disease and other diseases of the circulatory system; Z87.891 Personal history of nicotine dependence; Z79.82 Long term (current) use of aspirin; Z79.4 Long term (current) use of insulin; Z88.8 Allergy status to other drugs, medicaments and biological substances; Z95.5 Presence of coronary angioplasty implant and graft

== ENCOUNTER → 2017-10-12 | Outpatient (CLI) | payer OTHER ==
[~2017-10-12] MED LIST changes: +ACET1TAB84 PO; -BECL80AE7 INH; -CHOL1000 PO; +CHOL1TAB42 PO; +DRN400 PO; +FLM4 PO; +FLUT1INH14 INH; +GLC500 PO; -HYDR-5688 PO; -IPRA1AER2 INH; +ISOS120T5 PO; +ONDA4TAB9 PO; +OXGN; +POTA10TA32 PO; +RANO500T PO; +SIMV-151 PO; +TPRSR/100 PO; +UMEC1INH INH
[2017-10-12 11:37] LABS: ALBUMIN 3.7 gm/dl (3.4-5.0); ALKALINE PHOSPHATASE 53 U/L (45-117); ALT/SGPT 58 U/L (12-78); AST/SGOT 51 U/L (15-37); BLOOD UREA NITROGEN 13 mg/dl (7-18); CARBON DIOXIDE 30 mmol/L (21-32); CREATININE 1.15 mg/dl (0.60-1.40); GLUCOSE 128 mg/dl (70-99); POTASSIUM 3.7 mmol/L (3.5-5.1); SODIUM 136 mmol/L (136-145)
== END | disposition home or self-care (01) ==
LOC: C.LAB1850 09:46
PROVIDERS: ATTEND Internal Medicine Sports Medicine
DX: E80.7 Disorder of bilirubin metabolism, unspecified (principal)

== ENCOUNTER → 2017-10-18 | Outpatient (CLI) | payer OTHER ==
--- NOTE | 2017-10-18 10:27 | DIAGNOSTIC IMAGING REPORT ---
CAROTID DOPPLER NECK ART HISTORY: Carotid stenosis CAROTID STENOSIS, 2YR F.UP. LAST 09-30-15 COMPARISON: 09/30/2015 TECHNIQUE: Real-time, grayscale, and color Doppler sonography of the carotid arteries was performed. Imaging reviewed in the transverse and longitudinal planes. All measurements were calculated based on NASCET criteria. FINDINGS: Antegrade flow is seen in the bilateral vertebral arteries. The brachial pressures are hemodynamically similar. Moderate plaque formation bilaterally The peak systolic velocity within the right ICA is 100. The right systolic ratio is 1.8. The peak systolic velocity within the left ICA is 63. The left systolic ratio is 0.8. IMPRESSION: No hemodynamically significant stenosis seen within the carotid arteries. Mild plaque formation bilaterally. Persistent high stenotic process left external carotid artery unchanged. The above report was generated using voice recognition software. It may contain grammatical, syntax or spelling errors. Electronically signed by: Ac Salinas M.D. 10/18/2017 10:25 AM Dictated Date/Time: 10/18/2017 10:24 AM
== END | disposition home or self-care (01) ==
LOC: C.ULTR 08:56
PROVIDERS: ATTEND Surgery
DX: I65.29 Occlusion and stenosis of unspecified carotid artery (principal)

== ENCOUNTER → 2017-10-23 | Outpatient (CLI) | payer OTHER ==
[2017-10-23 12:33] LABS: BASO % 0.3 %; BASO ABS # 0.03 K/uL (0-0.2); EOS % 4.9 %; EOS ABS # 0.42 K/uL (0-0.5); HEMATOCRIT 40.3 % (42-52); HEMOGLOBIN 13.6 g/dL (14.0-18.0); IG# 0.02 K/uL (0.00-0.02); LYMPH % 23.8 %; LYMPH ABS # 2.05 K/uL (1.2-3.4); MEAN CORPUSCULAR HEMOGLOBIN 33.7 pg (25-34); MEAN CORPUSCULAR HGB CONC 33.7 g/dl (32-36); MEAN PLATELET VOLUME 10.2 fL (7.4-10.4); MONO % 7.7 %; MONO ABS # 0.66 K/uL (0.11-0.59); NEUT % 63.1 %; NEUT ABS # 5.42 K/uL (1.4-6.5); PLATELET COUNT 232 K/uL (130-400); RED CELL DISTRIBUTION WIDTH CV 12.8 % (11.5-14.5); RED CELL DISTRIBUTION WIDTH SD 46.9 fL (36.4-46.3)
[2017-10-23 12:55] LABS: HEMOGLOBIN A1C 7.1 % (4.5-5.6)
[2017-10-23 13:01] LABS: ALBUMIN 3.5 gm/dl (3.4-5.0); ALKALINE PHOSPHATASE 42 U/L (45-117); ALT/SGPT 32 U/L (12-78); AST/SGOT 37 U/L (15-37); BLOOD UREA NITROGEN 11 mg/dl (7-18); CALCIUM 9.1 mg/dl (8.5-10.1); CARBON DIOXIDE 25 mmol/L (21-32); CHOLESTEROL 102 mg/dl (0-200); CREATININE 1.01 mg/dl (0.60-1.40); GLUCOSE 113 mg/dl (70-99); LDL CHOLESTEROL CALCULATED 34 mg/dl; POTASSIUM 4.3 mmol/L (3.5-5.1); SODIUM 137 mmol/L (136-145); TOTAL PROTEIN 7.3 gm/dl (6.4-8.2)
== END ==
LOC: C.LAB1850 10:26
PROVIDERS: ATTEND Internal Medicine
DX: E11.9 Type 2 diabetes mellitus without complications (principal); K82.4 Cholesterolosis of gallbladder; E55.9 Vitamin D deficiency, unspecified; I48.92 Unspecified atrial flutter; E03.9 Hypothyroidism, unspecified